=== PATIENT | female | born 1985 | race Caucasian/White ===

== ENCOUNTER → 2017-12-19 21:33 | Outpatient (CLI) | payer OTHER, SELFPAY | LOC: SL 21:33 | PROVIDERS: Family Provider Internal Medicine; PCP Internal Medicine; Visit Provider Internal Medicine | DX: G47.33 Obstructive sleep apnea (adult) (pediatric) (principal) | CPT/HCPCS: 95811 ==

== ENCOUNTER 2018-05-06 09:30 | Outpatient (CLI) | payer OTHER, SELFPAY ==
[2018-05-06 09:32] VITALS: BP 148/89; PULSE 98; RESP 16; TEMP 37.1; O2SAT 99; BMI 40.0
--- NOTE | 2018-05-06 09:34 | ED.RN ---
PT STATES SHE FEELS BABY MOVING AND TIGHTNESS
--- NOTE | 2018-05-06 09:53 | ED.VISSUMM ---
- ER Visit Summary Date of Service: 05/06/18 Chief Complaint: Abdominal pain status post fall History of Present Illness: The patient is a 32 F who is approximately 8 months gestation who had a mechanical fall. She was going to work. She states she slipped on the icy parking lot. She fell forward onto her hands and knees. She states her abdomen hit the pavement. She presents because of pain that she localizes to the fundal region and reports decreased/abnormal movement. She denies any vaginal bleeding or fluid leakage. She is uncertain of blood type. She reports no complications with prior 11 years ago. She denied head trauma. Denies neck pain. Denies paresthesia, anesthesia or motor weakness. She denies respiratory or cardiac symptoms. Physical Examination: Vital signs noted and remarkable for an elevated blood pressure of 148/89. HEENT exam is unremarkable with no evidence of trauma. Heart is regular. There is no murmur, gallop or rub. Lungs are clear to auscultation. Abdomen is remarkable tenderness superior fourth of the uterus. Question of firmness. There is no pain the patient the pelvis. GCS is 15 with a nonfocal neurologic exam. Test Results: Prior records reviewed there is no documentation of blood type. This will need to be checked by her OB. Spoke with her OB and will discharge to L&D for monitoring Emergency Department Course and Treatment: Examination, consultation with athletic field custodian, Dr. Merino and discharge to L&D for monitoring Treatment Plan: To L&D for monitoring Disposition: Discharge to L&D Impression: Abdominal pain/uterine pain third trimester secondary to trauma This note was generated with [employer] dictation software. It may contain incorrect words, spelling, and punctuation that were not noted in review of the chart prior to signing ED Disposition - Plan for ED Patient: Disposition: Home or Assisted Living Chief Complaint: Fall Instructions: Nonstress and Contraction Stress Tests Referrals: Shital Cruz MD [Primary Care Provider] -
--- NOTE | 2018-05-06 09:57 | ED.DCSUM_ITS ---
- ER Visit Summary Date of Service: 05/06/18 Chief Complaint: Abdominal pain status post fall History of Present Illness: The patient is a 32 F who is approximately 8 months gestation who had a mechanical fall. She was going to work. She states she slipped on the icy parking lot. She fell forward onto her hands and knees. She states her abdomen hit the pavement. She presents because of pain that she localizes to the fundal region and reports decreased/abnormal movement. She denies any vaginal bleeding or fluid leakage. She is uncertain of blood type. She reports no complications with prior 11 years ago. She denied head trauma. Denies neck pain. Denies paresthesia, anesthesia or motor weakness. She denies respiratory or cardiac symptoms. Physical Examination: Vital signs noted and remarkable for an elevated blood pressure of 148/89. HEENT exam is unremarkable with no evidence of trauma. Heart is regular. There is no murmur, gallop or rub. Lungs are clear to auscultation. Abdomen is remarkable tenderness superior fourth of the uterus. Question of firmness. There is no pain the patient the pelvis. GCS is 15 with a nonfocal neurologic exam. Test Results: Prior records reviewed there is no documentation of blood type. This will need to be checked by her OB. Spoke with her OB and will discharge to L&D for monitoring Emergency Department Course and Treatment: Examination, consultation with tire center manager, Dr. Merino and discharge to L&D for monitoring Treatment Plan: To L&D for monitoring Disposition: Discharge to L&D Impression: Abdominal pain/uterine pain third trimester secondary to trauma This note was generated with [employer] dictation software. It may contain incorrect words, spelling, and punctuation that were not noted in review of the chart prior to signing ED Disposition - Plan for ED Patient: Disposition: Home or Assisted Living Chief Complaint: Fall Instructions: Nonstress and Contraction Stress Tests Referrals: Shital Cruz MD [Primary Care Provider] -
[2018-05-06 10:09] VITALS: BP 114/87; PULSE 97; RESP 14; O2SAT 99
[2018-05-06 11:25] LABS: Hematocrit 40.5 % (37-47); Hemoglobin 13.8 g/dl (12.0-15.0); Mean Corp Hgb Conc 34.1 g/gl (32-36); Mean Platelet Vol. 11.3 fl (6.2-12.0); Platelet Count 225 K/mm3 (150-450); RBC Distribution Width SD 43.3 fl (35.1-43.9); Red Blood Count 4.31 M/mm3 (4.2-5.4); White Blood Count 8.2 K/mm3 (4.4-11.0)
[2018-05-06 11:27] LABS: Scan Indicated on CBC? Y/N NO
[2018-05-06 11:31] VITALS: BMI 39.9
[2018-05-06 11:55] LABS: Partial Thromboplast Time 27.1 Seconds (24.1-36.2)
[2018-05-06 11:58] LABS: Fibrinogen 663 mg/dl (203-444)
--- NOTE | 2018-05-06 12:00 | OB.TRI.NOTE ---
History of Present Illness Date of Service: 05/06/18 Was patient seen by the physician?: Yes Reason For Visit: FALL, 8 MONTHS PREG Date of Service: 05/06/18 Final JASMIN Source: US <20 weeks Gestational age: 36.5 History of Present Illness: 32yo @ 36.5 wks s/p fall this morning. pt slipped and fell- most of impact on hand and knees but thinks she hit upper abdomen. denies Vaginal bleeding or regular contractions. has some discomfort on upper abdomen. Pt reports good movement. Pt offers no other concerns today. Allergies No Known Allergies Allergy (Verified 05/06/18 09:31) Laboratory Studies: Laboratory Tests 05/06/18 05/06/18 Range/Units 11:05 11:05 WBC 8.2 (4.4-11.0) K/mm3 RBC 4.31 (4.2-5.4) M/mm3 Hgb 13.8 (12.0-15.0) g/dl Hct 40.5 (37-47) % MCV 94.0 (81-99) fL MCH 32.0 (27.0-32.0) pg MCHC 34.1 (32-36) g/gl RDW 13.0 (11.6-14.6) % RDW Differential 43.3 (35.1-43.9) fl Plt Count 225 (150-450) K/mm3 MPV 11.3 (6.2-12.0) fl PT 13.0 (11.7-14.9) SECONDS INR 1.0 APTT 27.1 (24.1-36.2) Seconds Fibrinogen 663 H (203-444) mg/dl Review of Systems Cardiovascular: Denies: Chest Pain Respiratory: Denies: Shortness of Breath Gastrointestinal: Reports: - - some mild upper abdominal discomfort, no painful contractions. Denies: Abdominal Pain, Nausea Physical Exam Vitals: Vital Signs Temp Pulse Resp BP Pulse Ox 98.7 F 97 14 114/87 H 99 05/06/18 09:32 05/06/18 10:09 05/06/18 10:09 05/06/18 10:09 05/06/18 10:09 General: Alert, Oriented x3 Abdomen: Soft, Non Tender, Gravid, - - No rebound or gurading on exam Neurological: Cranial nerves II-XII grossly intact NST - FHR Rate Baby A Baseline: 140 Variability:: Moderate Accelerations:: 15 x 15 Decelerations:: None NST Reactive:: Yes FHR Category:: Category I Uterine Activity:: irregular contractions Impression/Plan 32yo @ 36.5 wks, s/p fall here for prolonged monitoring 1) Labs reviewed- wnl 2) well being established- will keep on monitor x 4 hrs- if remains reactive and category 1 will dc home 3) f/u in office as scheduled.
--- NOTE | 2018-05-06 15:39 | ED.RN ---
PT FILLED OUT FROI AFTER BEING DISCHARGED FROM ED AND [facility].
--- OUTSIDE RECORDS SUMMARY | 2018-06-18 01:11 | XMS RPT_ITS ---
:1985 Author Organization OHIP Care Team Providers Name Role Phone BEBE CORDOVA (COLOR MAKER) Attending Unavailable BEBE CORDOVA (COLOR MAKER) Referring Unavailable NEYHART ALDRIDGE, CARA Referring Unavailable NEYHART ALDRIDGE, CARA Referring Unavailable JUSTIN ALEMAN Attending Unavailable NEYHART ALDRIDGE, CARA Attending Unavailable NEYHART ALDRIDGE, CARA Referring Unavailable BEBE CORDOVA (COLOR MAKER) Attending Unavailable JOEL CRUZ Attending Unavailable JUSTIN ALEMAN Referring Unavailable NEYHART ALDRIDGE, CARA Attending Unavailable NEYHART ALDRIDGE, CARA Referring Unavailable TRUMAN ARMAS Attending Unavailable NEYHART ALDRIDGE, CARA Referring Unavailable NEYHART ALDRIDGE, CARA Referring Unavailable NEYHART ALDRIDGE, CARA Attending Unavailable NEYHART ALDRIDGE, CARA Referring Unavailable MEREDITH HARDY (MALARIOLOGIST) Attending Unavailable KOFI ROMERO Attending Unavailable NEYHART ALDRIDGE, CARA Referring Unavailable NEYHART ALDRIDGE, CARA Attending Unavailable MARA ROUSE (CNM) Attending Unavailable NEYHART ALDRIDGE, CARA Attending Unavailable NEYHART ALDRIDGE, CARA Referring Unavailable MARA ROUSE (CNM) Attending Unavailable NEYHART ALDRIDGE, CARA Referring Unavailable KOFI ROMERO Attending Unavailable NEYHART ALDRIDGE, CARA Referring Unavailable NEYHART ALDRIDGE, CARA Attending Unavailable NEYHART ALDRIDGE, CARA Referring Unavailable NEYHART ALDRIDGE, CARA Attending Unavailable NEYHART ALDRIDGE, CARA Attending Unavailable MARA ROUSE (CNM) Attending Unavailable NEYHART ALDRIDGE, CARA Attending Unavailable KOFI ROMERO Attending Unavailable MARA ROUSE (CNM) Attending Unavailable NEYHART ALDRIDGE, CARA Attending Unavailable NEYHART ALDRIDGE, CARA Referring Unavailable Neyhart-Aldridge, Cara Attending Unavailable Neyhart-Aldridge, Cara Referring Unavailable Joel Cruz Primary Care Unavailable Neyhart-Aldridge, Cara Attending Unavailable Nancy Joel Primary Care Unavailable Neyhart-Aldridge, Cara Referring Unavailable Joel Cruz Attending Unavailable Dexampjana, Joel Primary Care Unavailable ABIGAIL HARDY Consulting Unavailable Meredith Hardy PHILOSOPHY LECTURER-C Consulting Unavailable Talampas, Joel Primary Care Unavailable Neydulcet-Aldridge, Cara Attending Unavailable Neyhart-Aldridge, Cara Referring Unavailable Neyhart-Aldridge, Cara Admitting Unavailable Neyhart-Aldridge, Cara Attending Unavailable Nancy, Joel Primary Care Unavailable PROBLEMS PROBLEMS DATE TYPE CONDITION / CODE ATTENDING STATUS SOURCE 03/05/2018 Active Encounter for NA Active [facility] supervision of [facility] [place] other normal Repository , second trimester / Z34.82(ICD-10) 03/05/2018 Active 27 weeks gestation NA Active [facility] of / [place] Z3A.27(ICD-10) Repository 11/18/2017 Active Encounter for NA Active [facility] [place] screening for Repository nuchal translucency / Z36.82(ICD-10) 10/18/2017 Active Encounter for NA Active [facility] supervision of [facility] other normal Repository , first trimester / Z34.81(ICD-10) 09/30/2017 Active Hemorrhage in NA Active [facility] early , [place] unspecified / Repository O20.9(ICD-10) 06/11/2017 Active Recurrent NA Active [facility] loss / [place] N96(ICD-10) Repository 06/07/2017 Active Unknown / TASHA, BEBE Active [facility] UNK(Unknown) (COLOR MAKER) [place] Repository PROCEDURES PROCEDURES No Procedure Records FoundRESULTS RESULTS DISCHARGE INSTRUCTION Observed: 05/27/2018 Status: F Source: [place] 8:36 AM [facility] REPOSITORY [facility] Medical Records Department [address] [place] [address] Instructions for Home/Discharge Instructions 05/27/18 0836 MR#: [id number] Acct: [id number] Name: MELVINA LUCIO Rep #: [id number] : 1985 32 From: Justin Aleman PCP: Nancy VIERA,Joel Status: ADM IN Discharge Diet: No Restrictions Discharge Activity: May Drive, May Shower May resume sexual activity in: 4-6 weeks Weight Bearing Status: Weight bearing as tolerated Additional Instructions: If you experience any of the following, contact your healthcare provider. * Bleeding that soaks a pad every hour for 2 hours * Fever 100.4 or higher * Unrelieved incision or abdominal pain * Swelling, redness, discharge or bleeding from your incision or episiotomy site * Your incision begins to separate * Problems urinating (including inability to urinate or burning while urinating). * Visual changes * Severe headache * Flu-like symptoms * Pain or redness in one of both of your breasts * Pain, warmth, tenderness or swelling in your legs, especially the calf area * Frequent nausea and vomiting * Symptoms of depression or anxiety If you experience any of the following, call 911 or go to the nearest Emergency Room. * Chest pain * Problems breathing * Seizure activity * Partial or complete paralysis of a body part, slurred speech, weakness or drooping of the face, or a sudden inability to walk or hold your balance Allergies/Adverse Reactions: Allergies No Known Allergies Allergy (Verified 05/24/18 19:36) Medications to take at Discharge Vits96/Iron Fum/Folic [ Tablet] 1 each PO DAILY 05/06/18 Acetaminophen [Tylenol] 500 - 1,000 mg PO Q6H PRN PRN 05/23/18 Calcium Carbonate [Tums] 500 mg PO BIDCM 05/23/18 Primary Care Physician: Joel Cruz MD [Primary Care Provider] - Test Results: Test results from this visit will be discussed in further detail at your follow-up appointment, if applicable. 05/27/18 0836 <Electronically signed by Justin Aleman > Date Justin Aleman CC: Joel Cruz MD OPERATIVE REPORT Observed: 05/25/2018 Status: F Source: SHERIN 10:58 AM [facility] REPOSITORY [facility] Medical Records Department [address] [place] [address] Operative Report 05/25/18 1056 MR#: [id number] Acct: [id number] Name: MELVINA LUCIO Rep #: [id number] : 1985 32 From: Cara Aldridge MD PCP: Joel Cruz MD Status: ADM IN Y Location: [id number] Vaginal Delivery Maternal Presentation: Medically Indicated Induction Method of Induction: Pitocin, Izaguirre Bulb Medical Reason for Induction: Preeclampsia, eclampsia Amniotic Membrane Rupture Type: Artificial Amniotic Fluid Description: Clear Final JASMIN: 05/29/18 Gestational age: 39 Weeks and 3 Days Date of Procedure: 05/25/18 Pre-Operative Diagnosis: Preeclampsia without severe features, term gestation Post-Operative Diagnosis: Same, live male Surgery/ Procedure Performed: Spontaneous Vaginal Delivery Type of Anesthesia: Epidural Description of Procedure: of live male born without complications- tight nucal x 1- delivered without reduction of nuchal. vigorous at delivery, delayed cord clamping performed. Presentation: Vertex Placental Delivery Description: Spontaneous Placenta Disposition: [facility] Cord Vessel Description: 3 Vessels Nuchal Cord Compression: With compression Cord Entanglement: Around neck x 1, tight Drain: Izaguirre to straight drain Estimated Blood Loss: 250 Infant A gender: Male (1 minute): 8 (5 minute): 9 Episiotomy Description: None Laceration: Perineal Extension/lac, 2nd degree Medications given after delivery: IV Pitocin Complications: None 05/25/18 1058 <Electronically signed by Cara Aldridge MD> Date Cara Wheeler MD CC: Cara Wheeler MD; Joel Cruz MD Signed HISTORY AND PHYSICAL Observed: 05/24/2018 Status: F Source: BLAIR EXAM 8:22 PM [facility] REPOSITORY [facility] Medical Records Department [address] [place] [id number] History and Physical 05/24/18 1847 MR#: [id number] Acct: [id number] Name: MELVINA LUCIO Rep #: [id number] : 1985 32 From: Cara Aldridge MD PCP: Joel Cruz MD Status: ADM IN Y Location: [id number] History Date of Admission: 05/24/18 Final JASMIN: 05/29/18 Final JASMIN Source: US <20 weeks Gestational age: 39 Weeks and 2 Days History of this : This is a 32 year-old, G 9V0236 @ 39.2 wks with preeclampsia without severe features- had elevated BP in office yesterday x 1 sent to L AND D for evaluation- normal labs and BP normal range- 24hr urine results elevated protein 418mg. pt was called and set up for IOL today for PreE. pt at this time is asymptomatic Allergies No Known Allergies Allergy (Verified 05/23/18 12:27) Home Medications: Home Medications Vits96/Iron Fum/Folic [ Tablet] 1 each PO DAILY 05/06/18 Acetaminophen [Tylenol Extra Strength] 500 - 1,000 mg PO Q6H PRN PRN 05/23/18 Calcium Carbonate [Tums] 500 mg PO BIDCM 05/23/18 proMETHazine tablet [Phenergan tablet] 25 mg PO Q6H PRN PRN 05/23/18 Smoking Status: Former smoker Alcohol: None Number of Fetus(es): 1 History Past Pregnancies: Past Pregnancies Delivery Name GA/Weeks Outcome Route WeiInfant GeLabor LenAnesthesiDelivery Provider FOB Date ght nder [facility] a Location Labs: GBS neg, HEPB neg, HIV neg, Syphilis neg, RUB imm, Expected Delivery Method: Spontaneous Vaginal Review of Systems Eyes: Denies: Blurred vision, Double vision HEENT: Denies: Head Aches Gastrointestinal: Denies: Abdominal Pain Physical Exam General: Alert, Oriented x3 Abdomen: Soft, Non Tender, Gravid Neurological: Cranial nerves II-XII grossly intact MINISTER ASSISTANT: Normal external genitalia Estimated gestational size: Appropriate for gestational size Presentation: Cephalic Cervix Dilation (cm): 3 Station: -3 Effacement (%): 70 Assessment/Plan This is a 32 year-old, G 4P1 @ 39.2 wks, pre Eclampsia w/o severe features 1) admit to L AND D 2) monitor fhr/toco 3) monitor VS 4) Labs done yesterday- will not repeat today 5) IZAGUIRRE/PIT for IOL- izaguirre bulb placed- 6) epidural if requested for pain mgmt 05/24/182021 <Electronically signed by Cara Aldridge MD> Date Cara Wheeler MD Cosigner Signature: Date (if applicable) CC: Cara Wheeler MD; Joel Cruz MD Signed CBC-COMPLETE BLOOD CNT Collected: 05/24/2018 Status: F Source: [place] NO DIFF 8:05 PM [facility] REPOSITORY TYPE CODE TESTS RESULT OUT OF RANGE REFERENCE UNITS LAB L100.1000 4.4-11.0 K/mm3 Normal WBC 9.4 LAB L100.1200 4.2-5.4 M/mm3 Normal RBC 4.47 LAB L100.1300 12.0-15.0 g/dl Normal HGB 14.1 LAB L100.1400 37-47 % Normal HCT 41.2 LAB L100.1500 81-99 fL Normal MCV 92.2 LAB L100.1600 27.0-32.0 pg Normal MCH 31.5 LAB L100.1700 32-36 g/gl Normal MCHC 34.2 LAB L100.1810 11.6-14.6 % Normal RDW CV 12.9 LAB L100.1820 35.1-43.9 fl Normal RDW SD 43.6 LAB L100.1900 150-450 K/mm3 Normal PLT 238 LAB L100.2000 6.2-12.0 fl Normal MPV 11.3 Performed By: #### L100.0500 #### [facility] [address] [place], [place], [id number] TYPE AND SCREEN Collected: 05/24/2018 Status: F Source: [place] 8:05 PM [facility] REPOSITORY Order Comment: Reason for Type AND Screen/Red Cells: ROUTINE TYPE CODE TESTS RESULT OUT OF RANGE REFERENCE UNITS LAB B10.0800 B Normal BLOOD TYPE GEL POSITIVE LAB B100.4000 Normal Antibody NEGATIVE Screen Performed By: #### B101.7450 #### [facility] [address] [facility] [place], [address] PROTEIN, URINE 24HR Collected: 05/24/2018 Status: F Source: [place] 12:50 PM [facility] REPOSITORY Order Comment: CALL WITH RESULTS [phone] TYPE CODE TESTS RESULT OUT OF RANGE REFERENCE UNITS LAB L501.1850 24.0 HOURS Normal UR COLLECT 24.0 TIME LAB L501.1875 mL Normal UR TOTAL 2950 VOLUME LAB L501.1900 <11.9 mg/dL High URINE PROTEIN 14.2 LAB L501.1925 <150 MG/24HR mg/24HR High 24hr UR 418.9 PROTEIN Performed By: #### L500.9000, L502.000 #### [facility] [address] [place], [address] 24 HR URINE CREATININE Collected: 05/24/2018 Status: F Source: [place] 12:50 PM [facility] REPOSITORY Order Comment: CALL WITH RESULTS [phone] TYPE CODE TESTS RESULT OUT OF RANGE REFERENCE UNITS LAB L502.0100 24.0 HOURS Normal UR COLLECT 24.0 TIME LAB L502.0200 L Normal UR TOTAL 3.00 VOLUME LAB L502.0300 NO RANGE EST. mg/dL Normal URINE CREAT 71.30 LAB L502.0400 0.70-1.90 g/24 HR High UR.CREAT/24hr 2.10 Performed By: #### L500.9000, L502.000 #### [facility] [address] [facility] [place], [address] PROTEIN+CREATININE Collected: Status: F Source: [place]ER[place] RATIO,URINE 05/23/2018 12:50 PM [facility] REPOSITORY TYPE CODE TESTS RESULT OUT OF RANGE REFERENCE UNITS LAB L501.1200 NO RANGE EST. mg/dL Normal UR CREAT 41.30 LAB L501.1930 <11.9 mg/dL High 13.5 PROTEIN,UR.R AN. LAB L501.1940 0-200 mg/g CRE High PROT:CRE 327 RATIO Performed By: #### L501.0900 #### [facility] [address] [facility] [place], [place], [address] CBC-COMPLETE BLOOD CNT Collected: 05/23/2018 Status: F Source: [place] NO DIFF 12:15 PM [facility] REPOSITORY TYPE CODE TESTS RESULT OUT OF RANGE REFERENCE UNITS LAB L100.1000 4.4-11.0 K/mm3 Normal WBC 8.4 LAB L100.1200 4.2-5.4 M/mm3 Normal RBC 4.31 LAB L100.1300 12.0-15.0 g/dl Normal HGB 13.6 LAB L100.1400 37-47 % Normal HCT 40.4 LAB L100.1500 81-99 fL Normal MCV 93.7 LAB L100.1600 27.0-32.0 pg Normal MCH 31.6 LAB L100.1700 32-36 g/gl Normal MCHC 33.7 LAB L100.1810 11.6-14.6 % Normal RDW CV 12.8 LAB L100.1820 35.1-43.9 fl Normal RDW SD 42.8 LAB L100.1900 150-450 K/mm3 Normal PLT 211 LAB L100.2000 6.2-12.0 fl Normal MPV 11.8 Performed By: #### L100.0500 #### [facility] [address] [facility] [place], [place], [address] PROTHROMBIN TIME W/INR Collected: 05/23/2018 Status: F Source: [place] 12:15 PM [facility] REPOSITORY TYPE CODE TESTS RESULT OUT OF RANGE REFERENCE UNITS LAB L300.4150 11.7-14.9 SECONDS Normal PROTIME 13.0 LAB L300.4200 Normal INR 1.0 Performed By: #### L300.3900, L300.4310, L501.1105, L501.1400, L501.4100, L501.4405 #### [facility] [address] [facility] [place], [address] PARTIAL THROMBOPLAST Collected: 05/23/2018 Status: F Source: [place] TIME 12:15 PM [facility] REPOSITORY TYPE CODE TESTS RESULT OUT OF RANGE REFERENCE UNITS LAB L300.4310 24.1-36.2 Seconds Normal PTT 28.6 Performed By: #### L300.3900, L300.4310, L501.1105, L501.1400, L501.4100, L501.4405 #### [facility] [address] [place], [place], [id number] SERUM CREATININE AND Collected: 05/23/2018 Status: F Source: [place] GFR 12:15 PM [facility] REPOSITORY TYPE CODE TESTS RESULT OUT OF RANGE REFERENCE UNITS LAB L501.1100 0.55-1.02 mg/dL Normal 0.57 CREAT,SERUM Result Comment: The validity of the calculated GFR AND GFRAA in patients over 70 years has not been determined. Clinical correlation is essential. LAB L501.1110 >60 mL/min Normal EST GFR 130 Result Comment: Non- GFR Calc LAB L501.1115 >60 mL/min Normal EST GFR - AA 157 Result Comment: GFR Calc LAB L501.1255 ml/min Normal Estimated CRCL 141.61 Performed By: #### L300.3900, L300.4310, L501.1105, L501.1400, L501.4100, L501.4405 #### [facility] [address] [place], [place], [id number] URIC ACID Collected: 05/23/2018 Status: F Source: [place] 12:15 PM [facility] REPOSITORY TYPE CODE TESTS RESULT OUT OF RANGE REFERENCE UNITS LAB L501.1400 2.6-6.0 mg/dL Normal URIC 3.8 Result Comment: The drugs N-Acetylcysteine and Metamizole may falsely depress this assay. Performed By: #### L300.3900, L300.4310, L501.1105, L501.1400, L501.4100, L501.4405 #### [facility] [address] [place], [place], [address] AST(SGOT) Collected: 05/23/2018 Status: F Source: [place] 12:15 PM [facility] REPOSITORY TYPE CODE TESTS RESULT OUT OF RANGE REFERENCE UNITS LAB L501.4100 15-37 U/L Normal AST 26 Performed By: #### L300.3900, L300.4310, L501.1105, L501.1400, L501.4100, L501.4405 #### [facility] [address] [facility] [place], [address] ALANINE AMINOTRANSFERAS Collected: 05/23/2018 Status: F Source: [place]ERIN (SGPT) 12:15 PM [facility] REPOSITORY TYPE CODE TESTS RESULT OUT OF RANGE REFERENCE UNITS LAB L501.4405 13-56 U/L Normal ALT 33 Performed By: #### L300.3900, L300.4310, L501.1105, L501.1400, L501.4100, L501.4405 #### [facility] [address] [facility] [place], [place], [address] PROGRESS Observed: 05/15/2018 Status: COMPLETED Source: [place] 4:58 PM [facility] REPOSITORY HNO ID: [id number] Author: Kofi Romero Service: (none) Author Type: Physician Type: Progress Notes Filed: 05/15/2018 4:59 PM Note Text: A almodovar intrauterine The size is AGA Estimated Date of Delivery: 05/29/18 EGA = 38w0d The anatomy appears normal in the areas visualized. The amniotic fluid volume is normal. There is no evidence of effusions and/ or hydrops. The placenta is fundal. RECOMMENDATIONS: - Self-assessment of kick counts - Follow up ultrasound as clinically indicated GROUP B STREP PCR Collected: 05/07/2018 Status: F Source: [place] 11:41 PM [facility] REPOSITORY TYPE CODE TESTS RESULT OUT OF REFERENCE UNITS RANGE LAB GBPCRT Negative for GROUP Group B B STREP PCR Streptococcus by PCR. Performed By: #### GBPCR #### [facility] [address] [place], [place] [address] CBC-COMPLETE BLOOD CNT Collected: 05/06/2018 Status: F Source: [place] NO DIFF 11:05 AM [facility] REPOSITORY TYPE CODE TESTS RESULT OUT OF RANGE REFERENCE UNITS LAB L100.1000 4.4-11.0 K/mm3 Normal WBC 8.2 LAB L100.1200 4.2-5.4 M/mm3 Normal RBC 4.31 LAB L100.1300 12.0-15.0 g/dl Normal HGB 13.8 LAB L100.1400 37-47 % Normal HCT 40.5 LAB L100.1500 81-99 fL Normal MCV 94.0 LAB L100.1600 27.0-32.0 pg Normal MCH 32.0 LAB L100.1700 32-36 g/gl Normal MCHC 34.1 LAB L100.1810 11.6-14.6 % Normal RDW CV 13.0 LAB L100.1820 35.1-43.9 fl Normal RDW SD 43.3 LAB L100.1900 150-450 K/mm3 Normal PLT 225 LAB L100.2000 6.2-12.0 fl Normal MPV 11.3 Performed By: #### L100.0500, L300.3900, L300.4310, L300.4700 #### [facility] [address] [place], [place], [id number] PROTHROMBIN TIME W/INR Collected: 05/06/2018 Status: F Source: [place] 11:05 AM [facility] REPOSITORY TYPE CODE TESTS RESULT OUT OF RANGE REFERENCE UNITS LAB L300.4150 11.7-14.9 SECONDS Normal PROTIME 13.0 LAB L300.4200 Normal INR 1.0 Performed By: #### L100.0500, L300.3900, L300.4310, L300.4700 #### [facility] [address] [place], [place], [id number] PARTIAL THROMBOPLAST Collected: 05/06/2018 Status: F Source: [facility] 11:05 AM [facility] REPOSITORY TYPE CODE TESTS RESULT OUT OF RANGE REFERENCE UNITS LAB L300.4310 24.1-36.2 Seconds Normal PTT 27.1 Performed By: #### L100.0500, L300.3900, L300.4310, L300.4700 #### [facility] [address] [place], [place], [address] FIBRINOGEN Collected: 05/06/2018 Status: F Source: [place] 11:05 AM [facility] REPOSITORY TYPE CODE TESTS RESULT OUT OF RANGE REFERENCE UNITS LAB L300.4700 203-444 mg/dl High FIB 663 Performed By: #### L100.0500, L300.3900, L300.4310, L300.4700 #### [facility] [address] [place], [address] EMERGENCY DEPARTMENT Observed: 05/06/2018 Status: F Source: [place] SUMMARY 9:58 AM [facility] REPOSITORY [facility] Medical Records Department [address] [place] [address] Emergency Department Summary 05/06/18 0953 MR#: [id number] Acct: [id number] Name: MELVINA LUCIO Rep #: [id number] : 1985 32 From: Mihai Mckeon MD PCP: Joel Cruz MD Status: PRE ER - ER Visit Summary Date of Service: 05/06/18 Chief Complaint: Abdominal pain status post fall History of Present Illness: The patient is a 32 F who is approximately 8 months gestation who had a mechanical fall. She was going to work. She states she slipped on the icy parking lot. She fell forward onto her hands and knees. She states her abdomen hit the pavement. She presents because of pain that she localizes to the fundal region and reports decreased/abnormal movement. She denies any vaginal bleeding or fluid leakage. She is uncertain of blood type. She reports no complications with prior 11 years ago. She denied head trauma. Denies neck pain. Denies paresthesia, anesthesia or motor weakness. She denies respiratory or cardiac symptoms. Physical Examination: Vital signs noted and remarkable for an elevated blood pressure of 148/89. HEENT exam is unremarkable with no evidence of trauma. Heart is regular. There is no murmur, gallop or rub. Lungs are clear to auscultation. Abdomen is remarkable tenderness superior fourth of the uterus. Question of firmness. There is no pain the patient the pelvis. GCS is 15 with a nonfocal neurologic exam. Test Results: Prior records reviewed there is no documentation of blood type. This will need to be checked by her OB. Spoke with her OB and will discharge to L AND D for monitoring Emergency Department Course and Treatment: Examination, consultation with automotive engineering technician, Dr. Aldridge and discharge to L AND D for monitoring Treatment Plan: To L AND D for monitoring Disposition: Discharge to L AND D Impression: Abdominal pain/uterine pain third trimester secondary to trauma This note was generated with [employer] dictation software. It may contain incorrect words, spelling, and punctuation that were not noted in review of the chart prior to signing ED Disposition - Plan for ED Patient: Disposition: Home or Assisted Living Chief Complaint: Fall Instructions: Nonstress and Contraction Stress Tests Referrals: Joel Cruz MD [Primary Care Provider] - What to do if you have Problems For any increased pain, shortness of breath, bleeding, nausea or vomiting, chest pain, or any unexpected problems, contact your Primary Care Provider. Call [facility] ([phone]) or report to the closest Emergency Room. Call 911 if necessary. 05/06/18 0958 <Electronically signed by Mihai Mckeon MD> Date Mihai Mckeon MD Cosigner Signature (If Indicated): Date CC: Joel Cruz MD PROGRESS Observed: 04/16/2018 Status: COMPLETED Source: [place] 1:26 PM [facility] REPOSITORY [facility] ID: [id number] Author: Ade Cassidy Ma Service: (none) Author Type: (none) Type: Progress Notes Filed: 04/16/2018 1:48 PM Note Text: Patient identified by name and date of . Melvina Lucio presents today for a vaccination of Tdap. Patient denies an allergy to latex: yes Patient denies a severe (life-threatening) allergy to a previous dose of Tdap, DTP, DTaP, DT or Td vaccine. Yes Patient denies history of epilepsy or neurological problems: Yes Patient is afebrile and denies being moderately or severely ill: Yes Patient denies history of Guillain-[place] Syndrome (a severe paralytic illness): Yes Tdap Adacel injection was given without incident. See immunizations for details of immunizations administered today. VIS sheet provided: Yes Provider Angelique was present in office at time of injection. Ade Cassidy Ma PROGRESS Observed: 03/20/2018 Status: COMPLETED Source: [place] 10:14 AM [facility] REPOSITORY HNO ID: [id number] Author: Kofi Romero Service: (none) Author Type: Physician Type: Progress Notes Filed: 03/20/2018 10:15 AM Note Text: A almodovar intrauterine The size is AGA Estimated Date of Delivery: 05/29/18 EGA = 30w0d The anatomy appears normal in the areas visualized. The amniotic fluid volume is normal. There is no evidence of effusions and/ or hydrops. The placenta is fundal. RECOMMENDATIONS: - Self-assessment of kick counts - Follow up ultrasound as clinically indicated CBC AND DIFFERENTIAL Collected: 03/05/2018 Status: F Source: [place] 3:06 PM [facility] REPOSITORY TYPE CODE TESTS RESULT OUT OF REFERENCE UNITS RANGE LAB WBC 3.70-11.00 k/uL WBC 9.25 LAB RBC 3.90-5.20 m/uL Low RBC 3.79 LAB HGB 11.5-15.5 g/dL Hemoglobin 11.8 LAB HCT 36.0-46.0 % Low Hematocrit 35.9 LAB MCV 80.0-100.0 fL MCV 94.7 LAB MCH 26.0-34.0 pG MCH 31.1 LAB MCHC 30.5-36.0 g/dL MCHC 32.9 LAB RDWCV 11.5-15.0 % RDW-CV 13.0 LAB PLTCT 150-400 k/uL Platelet Count 251 LAB MPV 9.0-12.7 fL MPV 11.5 LAB ANEUT % Neut% 76.1 LAB AANEUT 1.45-7.50 k/uL Abs Neut 7.03 LAB ALYMP % Lymph% 15.0 LAB AALYMP 1.00-4.00 k/uL Abs Lymph 1.39 LAB AMONO % [place]% 7.0 LAB AAMONO <0.87 k/uL Abs [place] 0.65 LAB AEOS % Eosin% 1.7 LAB AAEOS <0.46 k/uL Abs Eosin 0.16 LAB ABASO % Baso% 0.2 LAB AABASO <0.11 k/uL Abs Baso <0.03 LAB AUNRBC 0 /100 WBC NRBCs 0.0 LAB ABNRBC <0.01 k/uL Absolute nRBC <0.01 LAB DTYP DTYPE Auto Diff Performed By: #### CBCDIF #### [facility] [address], [place] [address] 50G, 1HR GEST. Collected: 03/05/2018 Status: F Source: [place] GSCN 3:06 PM [facility] REPOSITORY TYPE CODE TESTS RESULT OUT OF REFERENCE UNITS RANGE LAB GLUP 74-134 mg/dL Glucose 117 Screen, Preg Result Comment: [place] [employer] of [employer]stetric[employer] and Gynecologists (Guerrero/Adriana) guidelines state a gestational diabetes mellitus positive screen is made, in women not previously diagnosed with overt diabetes, when the 1 hr plasma glucose level is equal to or above 140 mg/dL. The [facility] recommends a 135 mg/dL cutoff. Performed By: #### GLTGST #### [facility] [address], [place] [address] PROGRESS Observed: 03/05/2018 Status: COMPLETED Source: [place] 2:01 PM [facility] REPOSITORY HNO ID: [id number] Author: Ade Cassidy Ma Service: (none) Author Type: (none) Type: Progress Notes Filed: 03/05/2018 2:50 PM Note Text: 32 year old female here for INACTIVATED INFLUENZA VACCINE. 3348-6440 Season Patient is identified by name and date of : Yes [] CONTRAINDICATIONS color enhanced section Age less than 6 months? No Allergy to eggs, chicken, chicken feathers, or chicken dander? No Allergy to thimerosal (a preservative) or formaldehyde, gelatin? No History of severe reaction to any vaccine component or a previous dose of influenza vaccination? No History of Guillain-[place] Syndrome within 6 weeks after a previous influenza vaccine? No Patient is not moderately or severely ill? No Current temperature greater or equal to 100.4F? No History of Bone Marrow Transplant prior 6 months or solid organ transplant in the past 3 months ? No History of fainting after a prior injection or medical procedure? No- ? If patient has fainted in the past, the CDC recommends sitting or lying down for 15 minutes after the vaccination. [] VERIFICATION color enhanced section Was the answer Yes for any of the above contraindications? No contraindications present. Acceptable to proceed with vaccine. Patient/guardian agrees the above answers are true to the best of their knowledge? Yes Flu vaccine information sheet given? Yes See immunization activity in [facility] for details of immunizations adminstered today. Patient age: [age] year old For The 0376-9177 Flu Season 6-35 months old: Fluzone 0.25 ml - IM (Preservative Free) 3 years of age: Fluzone 0.5 ml - IM (Preservative Free) 3 years and older: Fluzone 0.5 ml- IM-(with Preservatives) 65+ years old: 2-49 years old Fluzone High-Dose 0.5 ml - IM (Preservative Free) FLUMIST- intranasal REMEMBER: If patient is less than 9 years of age and this is the first vaccine of Influenza to be received in any flu season, they should receive a second dose in one months time. CNCO Observed: 03/05/2018 Status: COMPLETED Source: [place] 12:00 AM [facility] REPOSITORY Letter Text [facility] [address], [place] [address] 03/05/2018 To Whom It May Concern: This is to confirm that Melvina Lucio had an appointment and was seen at the [facility] in the Department of HOME CARE [facility] by Cara Aldridge MD on 03/05/2018 and was accompanied by Sandrita Lucio. Sincerely, Cara Aldridge MD PROGRESS Observed: 01/13/2018 Status: COMPLETED Source: [place] 9:37 AM [facility] REPOSITORY HNO ID: [id number] Author: Kofi Romero Service: (none) Author Type: Physician Type: Progress Notes Filed: 01/13/2018 9:38 AM Note Text: A almodovar? fetus in utero with symmetric measurements Adequate growth (AGA). Estimated Date of Delivery: 05/29/18 EGA = 20w4d The anatomy appears normal. There are no evident malformations and /or effusions. No genetic markers are noted. The amniotic fluid volume is within normal limits. The sensitivity of ultrasound in the detection of malformations overall is approximately 35%. RECOMMENDATIONS: - Follow up ultrasound as clinically indicated PROGRESS Observed: 12/30/2017 Status: COMPLETED Source: [place] 10:03 AM [facility] REPOSITORY HNO ID: [id number] Author: Meredith Hardy (Cns) Service: (none) Author Type: Nurse Specialist Type: Progress Notes Filed: 12/30/2017 10:13 AM Note Text: OUTPATIENT VISIT DATE December 30, 2017 OUTPATIENT VISIT TYPE ESTABLISHED PRIMARY CARE PHYSICIAN: Joel Cruz MD CHIEF COMPLAINT: Patient presents with: Results - Sleep Study History of Present Illness: Melvina Lucio is a 32 year old female who was last seen 11/2017 by Joel Cruz MD. She has been seen in the past for ACTIVE PROBLEM LIST Multinodular Goiter Genital Warts Threatened History of Miscarriage Tobacco Use in Patient Requested Diagnostic Testing Spotting in , Antepartum Condition Or Complication Thyroid Goiter Quit Smoking Obesity in Since the last visit, she states that she has a history of sleep apnea. She is currently using an older CPAP. She is approximately 4 months . She had sleep study completed at [facility] on December 19, 2017, report per Dr. Sesay sleep apnea and recommended CPAP. She's been continuing to use her CPAP machine. Has not seen a sleep specialist. No recent hospital or ED visits. No new medical problems or medications. Able to obtain medications. No problems with taking medications or note side effects. PAST MEDICAL HISTORY Diagnosis Date - Abnormal Pap smear of cervix - goiter - Miscarriage 2016 - Miscarriage 2016 - Sleep apnea PAST SURGICAL HISTORY Procedure Laterality Date - DANDC (MISSED AB 1ST TRIMESTER) - IUD INSERTION (MINISTER ASSISTANT DEPT)_*FL 04/11/07 Mirena, removed - PAST SURGICAL HISTORY OF IANDD OF CYST ON BACK FAMILY HISTORY Problem Relation Age of Onset - Hypertension Mother - COPD Father - Stroke Maternal Grandmother - Aneurysm Maternal Grandmother brain - Hypertension Maternal Grandmother - Hypertension Maternal Grandfather - Diabetes Maternal Grandfather - Asthma Brother Social History Substance Use Topics - Smoking status: Former Smoker Packs/day: 0.50 Years: 10.00 Types: Cigarettes Quit date: 09/26/2017 - Smokeless tobacco: Never Used - Alcohol use No ALLERGIES: ALLERGIES No Known Allergies MEDICATIONS promethazine (PHENERGAN) 12.5 mg tablet Take 1 tablet by mouth every 6 hours as needed. PNV no.95/ferrous fum/folic ac ( ORAL) Take by mouth. REVIEW OF SYSTEMS: GENERAL: Negative for: Weight loss or gain, Fever or Chills, Weakness and Sleep difficulties. Physical Examination: BP 134/74 Pulse 96 Resp 16 Wt 251 lb (113.9kg) LMP 08/22/2017 BP w/Orthostatic Vitals Date and Time Orthostatic BP Orthostatic Pulse BP Pulse BP Position BP Site BP Cuff Size 12/30/17938 -- -- 134/74 96 Sitting Right Arm Large Adult Peak Flow Date and Time PF Resp 12/30/1739 -- 16 General appearance: Well appearing, alert, in no acute distress, well-hydrated, well nourished. Skin: Skin color, texture, turgor normal, no suspicious rashes or lesions Neuro: Gait normal. Sensation grossly intact. Reviewed chart, outside records, tests I personally interviewed, confirmed and edited the above information if obtained by others. TESTING: No results found for: GLUC, K, NA, CHLOR, CO2, CREAT, BUN, ANION, CA No results found for: GLUC, K, NA, CHLOR, CO2, CREAT, BUN, ANION, CA, TPROT, ALB, TBILI, ALKPHOS, AST, ALT Hemoglobin (g/dL) Date Value 10/18/2017 13.7 10/18/2017 13.7 Hematocrit (%) Date Value 10/18/2017 41.5 10/18/2017 39.9 WBC (k/uL) Date Value 10/18/2017 9.82 Cholesterol, Total (mg/dL) Date Value 09/16/2014 200 HDL Cholesterol (mg/dL) Date Value 09/16/2014 54 LDL Cholesterol (mg/dL) Date Value 09/16/2014 129 Triglyceride (mg/dL) Date Value 09/16/2014 83 Hemoglobin A1C Date Value Ref Range Status 06/11/2017 5.4 4.3 - 5.6 % Final 02/06/2016 5.6 4.3 - 5.6 % Final Ejection Fraction: No results found IMPRESSION: Ms. Lucio is a 32 year old woman presents for follow up of ABHINAV, recent sleep study results. After my examination and review of data, I make the following recommendations. PLAN AND RECOMMENDATIONS: 1. ABHINAV (obstructive sleep apnea) - ICD9: 327.23, ICD10: G47.33 (primary diagnosis) 2. 16 weeks gestation of - ICD9: V22.2, ICD10: Z3A.16 Discussed at visit today, will defer processing script for CPAP until seen by sleep specialist for their input. CPAP interpretation showed CPAP at a setting of 14 cm H2O eliminated apnea, laminated hypo-apneas and maintain oxygen saturations at 95% or higher. Recommendation is CPAP at a setting of 14 cm H2O using a dreamwear FFMof medium size, EPR of 3, heated humidity, and a ramp of 20 min. Copy of report provided to Ms. Lucio. Literature review shows 2 potential side effects of sleep apnea including increased risk of developing preeclampsia and gestational diabetes, no clear adverse effects on the fetus. No specific guidelines for ABHINAV treatment, no date on which to the or maternal parameters for treatment and no evidence of treatment and short-term impacts outcome. Advised follow-up with pre-gestational ABHINAV should have an evaluation by sleep provider for CPAP management during . Intrapartum care. In early consultation with anesthesia services for placement of regional anesthesia and continuous pulse oximetry. Patient's receiving opiates to be observed closely for respiratory suppression. The setting and analgesics strategies to minimize the need for systemic opioids methotrexate suppressed MALARIOLOGIST and respiratory function should be used.-(Up to date) Will refer to sleep medicine for further recommendations and assistance with managing ABHINAV during as needed - CONSULT TO SLEEP MEDICINE - ADULT Advised to go to ER if develops chest pain, shortness of breath, or severe worsening of symptoms. Discussed risks, benefits, alternatives, and potential side effects of medications. Ms. Lucio expressed understanding and agreed with the plan. Meredith Hardy APRN.MALARIOLOGIST CNOV Observed: 12/30/2017 Status: COMPLETED Source: [place] 9:40 AM [facility] REPOSITORY Office Visit (INTMWS) MELVINA LUCIO ([id number]) 1985 F Date Time Provider Department 12/30/17 9:40 AM MEREDITH HARDY ([facility] INTMWS During your visit today, we recorded the following information about you: Pulse Respiration Blood pressure Weight 96/minute 16/minute 134/74 113.9 kg Meredith Hardy APRN.CNS 12/30/2017 10:13 AM Addendum OUTPATIENT VISIT DATE December 30, 2017 OUTPATIENT VISIT TYPE ESTABLISHED PRIMARY CARE PHYSICIAN: Joel Cruz MD CHIEF COMPLAINT: Patient presents with: Results - Sleep Study History of Present Illness: Melvina Lucio is a 32 year old female who was last seen 11/2017 by Joel Cruz MD. She has been seen in the past for ACTIVE PROBLEM LIST Multinodular Goiter Genital Warts Threatened History of Miscarriage Tobacco Use in Patient Requested Diagnostic Testing Spotting in , Antepartum Condition Or Complication Thyroid Goiter Quit Smoking Obesity in Since the last visit, she states that she has a history of sleep apnea. She is currently using an older CPAP. She is approximately 4 months . She had sleep study completed at [facility] on December 19, 2017, report per Dr. Sesay sleep apnea and recommended CPAP. She's been continuing to use her CPAP machine. Has not seen a sleep specialist. No recent hospital or ED visits. No new medical problems or medications. Able to obtain medications. No problems with taking medications or note side effects. PAST MEDICAL HISTORY Diagnosis Date - Abnormal Pap smear of cervix - goiter - Miscarriage 2016 - Miscarriage 2016 - Sleep apnea PAST SURGICAL HISTORY Procedure Laterality Date - DANDC (MISSED AB 1ST TRIMESTER) - IUD INSERTION (MINISTER ASSISTANT DEPT)_*FL 04/11/07 Braulio removed - PAST SURGICAL HISTORY OF IANDD OF CYST ON BACK FAMILY HISTORY Problem Relation Age of Onset - Hypertension Mother - COPD Father - Stroke Maternal Grandmother - Aneurysm Maternal Grandmother brain - Hypertension Maternal Grandmother - Hypertension Maternal Grandfather - Diabetes Maternal Grandfather - Asthma Brother Social History Substance Use Topics - Smoking status: Former Smoker Packs/day: 0.50 Years: 10.00 Types: Cigarettes Quit date: 09/26/2017 - Smokeless tobacco: Never Used - Alcohol use No ALLERGIES: ALLERGIES No Known Allergies MEDICATIONS promethazine (PHENERGAN) 12.5 mg tablet Take 1 tablet by mouth every 6 hours as needed. PNV no.95/ferrous fum/folic ac ( ORAL) Take by mouth. REVIEW OF SYSTEMS: GENERAL: Negative for: Weight loss or gain, Fever or Chills, Weakness and Sleep difficulties. Physical Examination: BP 134/74 Pulse 96 Resp 16 Wt 251 lb (113.9kg) LMP 08/22/2017 BP w/Orthostatic Vitals Date and Time Orthostatic BP Orthostatic Pulse BP Pulse BP Position BP Site BP Cuff Size 12/30/1739 -- -- 134/74 96 Sitting Right Arm Large Adult Peak Flow Date and Time PF Resp 12/30/17 0939 -- 16 General appearance: Well appearing, alert, in no acute distress, well-hydrated, well nourished. Skin: Skin color, texture, turgor normal, no suspicious rashes or lesions Neuro: Gait normal. Sensation grossly intact. Reviewed chart, outside records, tests I personally interviewed, confirmed and edited the above information if obtained by others. TESTING: No results found for: GLUC, K, NA, CHLOR, CO2, CREAT, BUN, ANION, CA No results found for: GLUC, K, NA, CHLOR, CO2, CREAT, BUN, ANION, CA, TPROT, ALB, TBILI, ALKPHOS, AST, ALT Hemoglobin (g/dL) Date Value 10/18/2017 13.7 10/18/2017 13.7 Hematocrit (%) Date Value 10/18/2017 41.5 10/18/2017 39.9 WBC (k/uL) Date Value 10/18/2017 9.82 Cholesterol, Total (mg/dL) Date Value 09/16/2014 200 HDL Cholesterol (mg/dL) Date Value 09/16/2014 54 LDL Cholesterol (mg/dL) Date Value 09/16/2014 129 Triglyceride (mg/dL) Date Value 09/16/2014 83 Hemoglobin A1C Date Value Ref Range Status 06/11/2017 5.4 4.3 - 5.6 % Final 02/06/2016 5.6 4.3 - 5.6 % Final Ejection Fraction: No results found IMPRESSION: Ms. Lucio is a 32 year old woman presents for follow up of ABHINAV, recent sleep study results. After my examination and review of data, I make the following recommendations. PLAN AND RECOMMENDATIONS: 1. ABHINAV (obstructive sleep apnea) - ICD9: 327.23, ICD10: G47.33 (primary diagnosis) 2. 16 weeks gestation of - ICD9: V22.2, ICD10: Z3A.16 Discussed at visit today, will defer processing script for CPAP until seen by sleep specialist for their input. CPAP interpretation showed CPAP at a setting of 14 cm H2O eliminated apnea, laminated hypo-apneas and maintain oxygen saturations at 95% or higher. Recommendation is CPAP at a setting of 14 cm H2O using a dreamwear FFMof medium size, EPR of 3, heated humidity, and a ramp of 20 min. Copy of report provided to Ms. Lucio. Literature review shows 2 potential side effects of sleep apnea including increased risk of developing preeclampsia and gestational diabetes, no clear adverse effects on the fetus. No specific guidelines for ABHINAV treatment, no date on which to the or maternal parameters for treatment and no evidence of treatment and short-term impacts outcome. Advised follow-up with pre-gestational ABHINAV should have an evaluation by sleep provider for CPAP management during . Intrapartum care. In early consultation with anesthesia services for placement of regional anesthesia and continuous pulse oximetry. Patient's receiving opiates to be observed closely for respiratory suppression. The setting and analgesics strategies to minimize the need for systemic opioids methotrexate suppressed MALARIOLOGIST and respiratory function should be used.-(Up to date) Will refer to sleep medicine for further recommendations and assistance with managing ABHINAV during as needed - CONSULT TO SLEEP MEDICINE - ADULT Advised to go to ER if develops chest pain, shortness of breath, or severe worsening of symptoms. Discussed risks, benefits, alternatives, and potential side effects of medications. Ms. Lucio expressed understanding and agreed with the plan. Meredith Hardy APRN.MALARIOLOGIST Referring Provider: SELF [[id number]] Allergies As of Date: 12/30/2017 (No Known Allergies) Date Reviewed: 12/30/2017 Reviewed by: Cecily Mcnair LPN - Fully Assessed Reason for Visit: Results - Sleep Study [3564] Primary Visit Diagnosis:ABHINAV (obstructive sleep apnea) [G47.33] Other Visit Diagnosis:16 weeks gestation of [Z3A.16] Order(s):CONSULT TO SLEEP MEDICINE - ADULT [[id number]] Order #: [id number]: 1 Prescriptions as of 12/30/2017 Sig: PROMETHAZINE 12.5 MG TABLET Take 1 tablet by mouth every * ORAL Take by mouth. Problem List As Of Date 12/30/2017 Noted Resolved SUPERVIS NORMAL 1ST PREG [Z34.00] INVALID FOR*06/16/2007 SUPRF HIGH RISK NEC [O09.899] INVALID FOR*06/16/2007 PAP SMEAR OF CERVIX W ASCUS [R87.610] INVALID FOR*02/17/2008 CERVICAL HPV DNA POSITIVE [R87.810] INVALID FOR*02/17/2008 ABSCESS GLUTEAL [L02.31, L03.317] INVALID FOR*06/18/2012 Multinodular goiter [E04.2] INVALID FOR* Genital warts [A63.0] INVALID FOR* Tobacco use during [O99.330] INVALID FOR*01/26/2016 More... Patient requested diagnostic testing [Z01.89] INVALID FOR*01/26/2016 More... Threatened [O20.0] INVALID FOR* History of miscarriage [Z87.59] INVALID FOR* More... Tobacco use in [O99.330] INVALID FOR* More... Patient requested diagnostic testing [Z01.89] INVALID FOR* More... Spotting in , antepartum condition or *INVALID FOR* More... Thyroid goiter [E04.9] INVALID FOR* More... Quit smoking [Z87.891] INVALID FOR* More... Obesity in [O99.210] INVALID FOR* More... Encounter Status:Closed by MEREDITH ESTRELLA on 12/30/17 SEQUENT SCRN SECOND Collected: 12/17/2017 Status: F [facility] REPOS[facility] TYPE CODE TESTS RESULT OUT OF REFERENCE UNITS RANGE LAB SE1PAP MoM 0.61 SE1 IVY A LAB SE2AFP MoM 1.04 SE2 AFP LAB SE2HCG MoM 2.27 SE2 hCG LAB SE2UE3 MoM 0.89 SE2 Unconj uE3 LAB SE2INH MoM 1.73 SE2 Dimrc Inhibin A LAB SE1HCG MoM 1.33 SE1 hCG LAB SE2INT Screen Negative SE2 Interp Screen Negative LAB SE2SDN SE2 Scrn Rsk 1:1800 Dn Synd LAB SE2ADN 1:420 SE2 Age Rsk Dn Snyd LAB SE2STS SE2 Scr Rsk 1:70249 Trsmy 13 LAB SE2STR SE2 Scr Rsk <1:31748 Trsmy18 LAB SE2SON SE2 Scr Rsk 1:7600 ONTD LAB SE2RS View Seq Scrn results in Second Trim Scanned Documents link when available. LAB SEQLRV SEQ Staff Reviewed by Review Phong Cutler MD, PhD ([id number]) Performed By: #### SEQL2 #### [facility] [address] [place], [place] [address] SEQUENT SCRN FIRST Collected: 11/18/2017 Status: F [facility] AM [facility] REPOS[facility] TYPE CODE TESTS RESULT OUT OF REFERENCE UNITS RANGE LAB SE1PAP MoM 0.56 SE1 IVY A LAB SE1HCG MoM 1.26 SE1 hCG LAB SE1INT Final result pending second Final trimester SE1 result pending sample Interp second trimester sample LAB SE1SDN SE1 Scrn 1:1100 Rsk Dn Synd LAB SE1ADN 1:310 SE1 Age Rsk Dn Synd LAB SE1STR SE1 Scr <1:01266 Rsk Trsmy18 LAB SE1ATR SE1 Age 1:1400 Rsk Trsmy18 LAB SE1RS View Seq Scrn results in First Trim Scanned Documents link when available. LAB SEQLRV SEQ Staff Reviewed by Review Phong Cutler MD, PhD ([id number]) Performed By: #### SEQL1 #### [facility] [address] [place], [place] [address] PROGRESS Observed: 11/18/2017 Status: COMPLETED Source: [place] 9:49 AM [facility] RE[facility]IT[facility] HNO ID: [id number] Author: Truman Armas Service: (none) Author Type: Physician Type: Progress Notes Filed: 11/18/2017 9:51 AM Note Text: Please see ultrasound report for details of this visit. Truman Armas M.D. PROGRESS Observed: 11/01/2017 Status: COMPLETED Source: [place] 1:01 PM [facility] RE[facility]IT[facility] HNO ID: [id number] Author: Joel Cruz Service: (none) Author Type: Physician Type: Progress Notes Filed: 11/12/2017 8:07 AM Note Text: HISTORY Melvina Lucio is a 32 year old lady here to be formally established with me. Concerns for sleep apnea noted--was diagnosed 10 years ago. Saw sleep medicine, ABHINAV runs in family on father's side. Brother has ABHINAV. Is on CPAP Not effective and removes mask at night. More than 10 years since last sleep study. Has not gotten new mask lately through insurance. PAST MEDICAL HISTORY Diagnosis Date - Abnormal Pap smear of cervix - goiter - Miscarriage 2016 - Miscarriage 2016 - Sleep apnea Current Outpatient Prescriptions: promethazine (PHENERGAN) 12.5 mg tablet Take 1 tablet by mouth every 6 hours as needed. PNV no.95/ferrous fum/folic ac ( ORAL) Take by mouth. No current facility-administered medications for this visit. ALLERGIES No Known Allergies PAST SURGICAL HISTORY Procedure Laterality Date - DANDC (MISSED AB 1ST TRIMESTER) - IUD INSERTION (MINISTER ASSISTANT DEPT)_*FL 04/11/07 Mirena, removed - PAST SURGICAL HISTORY OF IANDD OF CYST ON BACK FAMILY HISTORY Problem Relation Age of Onset - Hypertension Mother - COPD Father - Stroke Maternal Grandmother - Aneurysm Maternal Grandmother brain - Hypertension Maternal Grandmother - Hypertension Maternal Grandfather - Diabetes Maternal Grandfather - Asthma Brother Social History Marital status: Spouse name: Kirk Years of education: 12 Number of children: 1 Occupational History 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 [employer]* Social History Main Topics Smoking status: Former Smoker Packs/day: 0.50 Years: 10.00 Types: Cigarettes Quit date: 09/26/2017 Smokeless tobacco: Never Used Alcohol use: No Drug use: No Sexual activity: Yes Partners with: Male Social History Narrative Merged History Encounter Single, 1 child Weston, age 6 in 2014 Getting 5-15 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 PHYSICAL EXAMINATION: Blood pressure 124/64, pulse 100, resp. rate 12, weight 103 kg (227 lb), last menstrual period 08/22/2017. General appearance: well appearing, in no acute distress, well-hydrated, well nourished Skin: Skin color, texture, turgor normal. No significant rashes or lesions. Head: Normal Eyes: Anicteric sclera. Pupils are equally round and reactive to light. Extraocular movements are intact. Ears: External ears normal. Canals clear. TM's unremarkable. Nose/Sinuses: negative Oropharynx: Lips, mucosa, and tongue normal. Teeth and gums normal. Oropharynx normal. Neck: Neck supple, no adenopathy; thyroid symmetric, normal size, no bruits. Lungs: Lungs clear to auscultation Heart: negative. RRR without murmur, gallop, or rubs. No ectopy. Abdomen: Abdomen soft, non-tender. Bowel sounds normal. No masses, organomegaly Extremities: Extremities normal. No deformities, edema, or skin discoloration. Good capillary refill. Musculoskeletal: grossly normal Peripheral pulses: Normal Neuro: Gait normal. Reflexes normal and symmetric. Sensation grossly intact. No gross focal neurological deficits. ASSESSMENT AND PLAN See diagnoses and orders Encounter Diagnosis ICD-10-CM 1. ABHINAV on CPAP G47.33 Z99.89 2. Multinodular goiter E04.2 Will get sleep study done through [facility]. 32 year old lady here to be formally established with me. History and medications reviewed. Epic updated as needed Above issues addressed with patient. Patient involved in shared decision making for management of her medical issues. Refills taken care of and meds adjusted as indicated after reviewed history, exam and labs. Health Maintenance reviewed. Updated record and/or ordered tests as recorded. Encouraged on efforts at healthy diet and regular exercise and adequate sleep. The majority of the visit was spent counseling and/or coordinating care for the patient. Xuhy-[id number] time was 30 minutes. Joel Cruz MD CNOV Observed: 11/01/2017 Status: COMPLETED Source: [place] 11:40 AM [facility] REPOSITORY Office Visit (INTMWS) MELVINA LUCIO ([id number]) 1985 F Date Time Provider Department 11/01/17 11:40 AM JOEL CRUZ INTMWS During your visit today, we recorded the following information about you: Pulse Respiration Blood pressure Weight 100/minute 12/minute 124/64 103 kg Joel Cruz MD 11/12/2017 8:07 AM Signed HISTORY Melvinarip Lucio is a 32 year old lady here to be formally established with me. Concerns for sleep apnea noted--was diagnosed 10 years ago. Saw sleep medicine, ABHINAV runs in family on father's side. Brother has ABHINAV. Is on CPAP Not effective and removes mask at night. More than 10 years since last sleep study. Has not gotten new mask lately through insurance. PAST MEDICAL HISTORY Diagnosis Date - Abnormal Pap smear of cervix - goiter - Miscarriage 2016 - Miscarriage 2016 - Sleep apnea Current Outpatient Prescriptions: promethazine (PHENERGAN) 12.5 mg tablet Take 1 tablet by mouth every 6 hours as needed. PNV no.95/ferrous fum/folic ac ( ORAL) Take by mouth. No current facility-administered medications for this visit. ALLERGIES No Known Allergies PAST SURGICAL HISTORY Procedure Laterality Date - DANDC (MISSED AB 1ST TRIMESTER) - IUD INSERTION (MINISTER ASSISTANT DEPT)_*FL 04/11/07 Braulio, removed - PAST SURGICAL HISTORY OF IANDD OF CYST ON BACK FAMILY HISTORY Problem Relation Age of Onset - Hypertension Mother - COPD Father - Stroke Maternal Grandmother - Aneurysm Maternal Grandmother brain - Hypertension Maternal Grandmother - Hypertension Maternal Grandfather - Diabetes Maternal Grandfather - Asthma Brother Social History Marital status: Spouse name: Kirk Years of education: 12 Number of children: 1 Occupational History 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 [employer]* Social History Main Topics Smoking status: Former Smoker Packs/day: 0.50 Years: 10.00 Types: Cigarettes Quit date: 09/26/2017 Smokeless tobacco: Never Used Alcohol use: No Drug use: No Sexual activity: Yes Partners with: Male Social History Narrative Merged History Encounter Single, 1 child Weston, age 6 in 2014 Getting 5-15 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 PHYSICAL EXAMINATION: Blood pressure 124/64, pulse 100, resp. rate 12, weight 103 kg (227 lb), last menstrual period 08/22/2017. General appearance: well appearing, in no acute distress, well-hydrated, well nourished Skin: Skin color, texture, turgor normal. No significant rashes or lesions. Head: Normal Eyes: Anicteric sclera. Pupils are equally round and reactive to light. Extraocular movements are intact. Ears: External ears normal. Canals clear. TM's unremarkable. Nose/Sinuses: negative Oropharynx: Lips, mucosa, and tongue normal. Teeth and gums normal. Oropharynx normal. Neck: Neck supple, no adenopathy; thyroid symmetric, normal size, no bruits. Lungs: Lungs clear to auscultation Heart: negative. RRR without murmur, gallop, or rubs. No ectopy. Abdomen: Abdomen soft, non-tender. Bowel sounds normal. No masses, organomegaly Extremities: Extremities normal. No deformities, edema, or skin discoloration. Good capillary refill. Musculoskeletal: grossly normal Peripheral pulses: Normal Neuro: Gait normal. Reflexes normal and symmetric. Sensation grossly intact. No gross focal neurological deficits. ASSESSMENT AND PLAN See diagnoses and orders Encounter Diagnosis ICD-10-CM 1. ABHINAV on CPAP G47.33 Z99.89 2. Multinodular goiter E04.2 Will get sleep study done through [facility]. 32 year old lady here to be formally established with me. History and medications reviewed. Epic updated as needed Above issues addressed with patient. Patient involved in shared decision making for management of her medical issues. Refills taken care of and meds adjusted as indicated after reviewed history, exam and labs. Health Maintenance reviewed. Updated record and/or ordered tests as recorded. Encouraged on efforts at healthy diet and regular exercise and adequate sleep. The majority of the visit was spent counseling and/or coordinating care for the patient. Sqjy-pz-yvih time was 30 minutes. Joel Cruz MD Referring Provider: JUSTIN ALEMAN [[id number]] Allergies As of Date: 11/01/2017 (No Known Allergies) Date Reviewed: 11/01/2017 Reviewed by: Levi Lan - Fully Assessed Reason for Visit: transfer care [Other] Primary Visit Diagnosis:ABHINAV on CPAP [G47.33, Z99.89] Other Visit Diagnosis:Multinodular goiter [E04.2] Prescriptions as of 11/01/2017 Sig: PROMETHAZINE 12.5 MG TABLET Take 1 tablet by mouth every * ORAL Take by mouth. Problem List As Of Date 11/01/2017 Noted Resolved SUPERVIS NORMAL 1ST PREG [Z34.00] INVALID FOR*06/16/2007 SUPRF HIGH RISK NEC [O09.899] INVALID FOR*06/16/2007 PAP SMEAR OF CERVIX W ASCUS [R87.610] INVALID FOR*02/17/2008 CERVICAL HPV DNA POSITIVE [R87.810] INVALID FOR*02/17/2008 ABSCESS GLUTEAL [L02.31, L03.317] INVALID FOR*06/18/2012 Multinodular goiter [E04.2] INVALID FOR* Genital warts [A63.0] INVALID FOR* Tobacco use during [O99.330] INVALID FOR*01/26/2016 More... Patient requested diagnostic testing [Z01.89] INVALID FOR*01/26/2016 More... Threatened [O20.0] INVALID FOR* History of miscarriage [Z87.59] INVALID FOR* More... Tobacco use in [O99.330] INVALID FOR* More... Patient requested diagnostic testing [Z01.89] INVALID FOR* More... Spotting in , antepartum condition or *INVALID FOR* More... Thyroid goiter [E04.9] INVALID FOR* More... Quit smoking [Z87.891] INVALID FOR* More... Obesity in [O99.210] INVALID FOR* More... Follow-up and Disposition History Recorded Encounter Status:Closed by JOEL CRUZ MD on 11/12/17 PROGRESS Observed: 10/30/2017 Status: COMPLETED Source: [place] 4:09 PM [facility] RE[facility] HNO ID: [id number] Author: Bebe Cuevas) Tasha Service: (none) Author Type: Nurse Practitioner Type: Progress Notes Filed: 10/30/2017 4:36 PM Note Text: Hadoop Software Engineer offered: Patient declines. Melvina Lucio is a 32 year old female who presents for problem visit Vaginal irriation for 1 day. HPI: pt states that she started noticing the irritation yesterday, feels like an electric shock in the vaginal, seems little more irritated today. Scant amount of brownish discharge on panty liner was noted today. PAST MEDICAL HISTORY Diagnosis Date - Abnormal Pap smear of cervix - goiter - Miscarriage 2016 - Miscarriage 2016 - Sleep apnea PAST SURGICAL HISTORY Procedure Laterality Date - DANDC (MISSED AB 1ST TRIMESTER) - IUD INSERTION (MINISTER ASSISTANT DEPT)_*FL 04/11/07 Mirena, removed - PAST SURGICAL HISTORY OF IANDD OF CYST ON BACK FAMILY HISTORY Problem Relation Age of Onset - Hypertension Mother - COPD Father - Stroke Maternal Grandmother - Aneurysm Maternal Grandmother brain - Hypertension Maternal Grandmother - Hypertension Maternal Grandfather - Diabetes Maternal Grandfather - Asthma Brother Social History Marital status: Spouse name: Kirk Years of education: 12 Number of children: 1 Occupational History 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 [employer]* Social History Main Topics Smoking status: Former Smoker Packs/day: 0.50 Years: 10.00 Types: Cigarettes Quit date: 09/26/2017 Smokeless tobacco: Never Used Alcohol use: No Drug use: No Sexual activity: Yes Partners with: Male Social History Narrative Merged History Encounter Single, 1 child Weston, age 6 in 2015 Getting 5-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 PNV no.95/ferrous fum/folic ac ( ORAL) Take by mouth. No current facility-administered medications for this visit. Allergies As of Date: 10/30/2017 (No Known Allergies) Fully Assessed 10/30/2017 REVIEW OF SYSTEMS Abdomen: No bloating, early satiety, indigestion, or increased flatulence. No abdominal pain, nausea, vomiting, diarrhea, or constipation. Bladder: No dysuria, gross hematuria, urinary frequency, urinary urgency, or incontinence. Expanded ROS: N/A Allergies and current medication updated:Yes EXAM: BP 100/68 Wt 230 lb (104.3kg) LMP 08/22/2017 GENERAL: pleasant, female in no apparent distress HEENT: Normocephalic, atraumatic, mucus membranes moist and no lesions CHEST: Normal inspiratory effort PELVIC: external genitalia normal, normal Bartholin's glands, urethra, Crescent Bar's glands, no cervical lesions, good vaginal support, physiologic discharge present, normal appearing perineal body and perianal region, in the posterior fourchette there is 2mm area that is painful to touch, slightly red and raise. NEURO: alert and oriented x3,exam grossly non-focal ASSESSMENT AND PLAN: No diagnosis found. Vulvar lesion Herpes culture sent Recommended warm soaks, avoid any irritates, pat dry, and wear loose clothing. If area becomes more painful or large call office. Bebe Cordova APRN.CARMENCITA CNOV Observed: 10/30/2017 Status: COMPLETED Source: [place] 4:00 PM [facility] REPOSITORY Office Visit (WOOB) MELVINA LUCIO ([id number]) 1985 F Date Time Provider Department 10/30/17 4:00 PM BEBE CORDOVA (CARMENCITA) WOOB During your visit today, we recorded the following information about you: Blood pressure Weight 100/68 104.3 kg Bebe Cordova APRN.CNP 10/30/2017 4:36 PM Signed Hadoop Software Engineer offered: Patient declines. Melvina Lucio is a 32 year old female who presents for problem visit Vaginal irriation for 1 day. HPI: pt states that she started noticing the irritation yesterday, feels like an electric shock in the vaginal, seems little more irritated today. Scant amount of brownish discharge on panty liner was noted today. PAST MEDICAL HISTORY Diagnosis Date - Abnormal Pap smear of cervix - goiter - Miscarriage 2016 - Miscarriage 2016 - Sleep apnea PAST SURGICAL HISTORY Procedure Laterality Date - DANDC (MISSED AB 1ST TRIMESTER) - IUD INSERTION (MINISTER ASSISTANT DEPT)_*FL 04/11/07 Mirena, removed - PAST SURGICAL HISTORY OF IANDD OF CYST ON BACK FAMILY HISTORY Problem Relation Age of Onset - Hypertension Mother - COPD Father - Stroke Maternal Grandmother - Aneurysm Maternal Grandmother brain - Hypertension Maternal Grandmother - Hypertension Maternal Grandfather - Diabetes Maternal Grandfather - Asthma Brother Social History Marital status: Spouse name: Kirk Years of education: 12 Number of children: 1 Occupational History 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 [employer]* Social History Main Topics Smoking status: Former Smoker Packs/day: 0.50 Years: 10.00 Types: Cigarettes Quit date: 09/26/2017 Smokeless tobacco: Never Used Alcohol use: No Drug use: No Sexual activity: Yes Partners with: Male Social History Narrative Merged History Encounter Single, 1 child Weston, age 6 in 2014 Getting 5-15 Works at [employer] on [employer] Current Outpatient Prescriptions: promethazine (PHENERGAN) 12.5 mg tablet Take 1 tablet by mouth every 6 hours as needed. PNV no.95/ferrous fum/folic ac ( ORAL) Take by mouth. No current facility-administered medications for this visit. Allergies As of Date: 10/30/2017 (No Known Allergies) Fully Assessed 10/30/2017 REVIEW OF SYSTEMS Abdomen: No bloating, early satiety, indigestion, or increased flatulence. No abdominal pain, nausea, vomiting, diarrhea, or constipation. Bladder: No dysuria, gross hematuria, urinary frequency, urinary urgency, or incontinence. Expanded ROS: N/A Allergies and current medication updated:Yes EXAM: BP 100/68 Wt 230 lb (104.3kg) LMP 08/22/2017 GENERAL: pleasant, female in no apparent distress HEENT: Normocephalic, atraumatic, mucus membranes moist and no lesions CHEST: Normal inspiratory effort PELVIC: external genitalia normal, normal Bartholin's glands, urethra, Crescent Bar's glands, no cervical lesions, good vaginal support, physiologic discharge present, normal appearing perineal body and perianal region, in the posterior fourchette there is 2mm area that is painful to touch, slightly red and raise. NEURO: alert and oriented x3,exam grossly non-focal ASSESSMENT AND PLAN: No diagnosis found. Vulvar lesion Herpes culture sent Recommended warm soaks, avoid any irritates, pat dry, and wear loose clothing. If area becomes more painful or large call office. Bebe Cordova, CLIF.COLOR MAKER Referring Provider: SELF [[id number]] Allergies As of Date: 10/30/2017 (No Known Allergies) Date Reviewed: 10/30/2017 Reviewed by: Bebe Cuevas) Tasha - Fully Assessed Reason for Visit: Vaginal Problem [117] Primary Visit Diagnosis:Vaginal irritation [N89.8] Order(s):HSV 1,2/VZV AMP MOLECULAR DETECT [SQHSVVZV] Order #: [id number] Prescriptions as of 10/30/2017 Sig: PROMETHAZINE 12.5 MG TABLET Take 1 tablet by mouth every * ORAL Take by mouth. Problem List As Of Date 10/30/2017 Noted Resolved SUPERVIS NORMAL 1ST PREG [Z34.00] INVALID FOR*06/16/2007 [facility] HIGH RISK NEC [O09.899] INVALID FOR*06/16/2007 PAP SMEAR OF CERVIX W ASCUS [R87.610] INVALID FOR*02/17/2008 CERVICAL HPV DNA POSITIVE [R87.810] INVALID FOR*02/17/2008 ABSCESS GLUTEAL [L02.31, L03.317] INVALID FOR*06/18/2012 Multinodular goiter [E04.2] INVALID FOR* Genital warts [A63.0] INVALID FOR* Tobacco use during [O99.330] INVALID FOR*01/26/2016 More... Patient requested diagnostic testing [Z01.89] INVALID FOR*01/26/2016 More... Threatened [O20.0] INVALID FOR* History of miscarriage [Z87.59] INVALID FOR* More... Tobacco use in [O99.330] INVALID FOR* More... Patient requested diagnostic testing [Z01.89] INVALID FOR* More... Spotting in , antepartum condition or *INVALID FOR* More... Thyroid goiter [E04.9] INVALID FOR* More... Quit smoking [Z87.891] INVALID FOR* More... Obesity in [O99.210] INVALID FOR* More... Encounter Status:Closed by BEBE CORDOVA on 10/30/17 HSV1,2/VZV AMPLIF Collected: 10/30/2017 Status: F Source: [place] 4:17 AM [facility] REPOSITORY TYPE CODE TESTS RESULT OUT OF REFERENCE UNITS RANGE LAB HVZSRC Specimen Lesion Source LAB HRPSV1 HSV Type 1, Negative for HDA Herpes Simplex virus Type 1 by Molecular Detection. LAB HRPSV2 HSV Type 2, Negative for HDA Herpes Simplex virus Type 2 by Molecular Detection. LAB VZOSV V Zoster Virus, Negative for HDA Varicella Zoster virus by [facility]. Performed By: #### HSVVZV #### [facility] [address] [place] [address] TOXICOLOGY SCREEN,UR Collected: 10/18/2017 Status: F Source: [place] 2:45 PM [facility] REPOSITORY TYPE CODE TESTS RESULT OUT OF REFERENCE UNITS RANGE LAB UPCP2 Negative Negative Phencyclidin e, Urine Result Comment: Cutoff threshold at 25 ng/mL. LAB UBENZ2 Negative Benzodiazepines, Ur Negative Result Comment: Cutoff threshold at 200 ng/mL. LAB UCOC2 Negative Cocaine, Negative Urine Result Comment: Cutoff threshold at 300 ng/mL. LAB UAMPH2 Negative Amphetamines, Urine Negative Result Comment: Cutoff threshold at 1000 ng/mL. LAB UTHC2 Negative Cannabinoids, Urine Negative Result Comment: Cutoff threshold at 50 ng/mL. LAB UOPI2 Negative Opiates, Negative Urine Result Comment: Cutoff threshold at 300 ng/mL. LAB UBARB2 Negative Barbiturates, Urine Negative Result Comment: Cutoff threshold at 200 ng/mL. LAB UETOH <11 mg/dL <11 Ethanol, Urine LAB UOXYC Negative Oxycodone, Negative Urine Result Comment: Cutoff threshold at 100 ng/mL. Comment: Immunoassay screen only. Cross reactivity with other substances can occur with immunoassay screening. Detection of any drug(s) in this urine toxicology panel is presumptive only. These tests are for med ical purposes only and should not be used for compliance monitoring, legal, or forensic use. In clinical settings, confirmatory testing is at the practitioner's discretion [1]. If clinically indicated, confirmation by high specificity, quantitative methodology may be requested on the same speci men through Client Services ([phone]) if contacted within 48 hours of initial testing. [1]Substance Abuse and Mental Health Services Administration (2012). Clinical Drug Testing in Primary Care Technical Assistance Publication Series 32. Department of Health and Human Services, [place], p.10. These tests were developed and their performance characteristics determined by [facility] Andrea [facility] [place] ([facility]). They have not been cleared or a pproved by the FDA. [facility] is regulated under CLIA as qualified to perform high complexity testing. These tests are used for clinical purposes. They should not be regarded as investigational or for research. Performed By: #### UTOX2 #### [facility] [address] [place], [place] [address] Observed: 10/18/2017 Status: F Source: [place] URINE CULTURE 2:45 PM [facility] REPOSITORY Sp. Request/Comment: - Specimen received in preservative Culture Result - <10,000 CFU/ml Normal urogenital dewey Performed By: #### URCUL #### [place] [id number] [place], [place] [address] CBC Collected: 10/18/2017 Status: F Source: [place] 11:25 AM [facility] REPOSITORY TYPE CODE TESTS RESULT OUT OF REFERENCE UNITS RANGE LAB WBC 3.70-11.00 k/uL WBC 9.82 LAB RBC 3.90-5.20 m/uL RBC 4.37 LAB HGB 11.5-15.5 g/dL Hemoglobin 13.7 LAB HCT 36.0-46.0 % Hematocrit 41.5 LAB MCV 80.0-100.0 fL MCV 95.0 LAB MCH 26.0-34.0 pG MCH 31.4 LAB MCHC 30.5-36.0 g/dL MCHC 33.0 LAB RDWCV 11.5-15.0 % RDW-CV 12.0 LAB PLTCT 150-400 k/uL Platelet Count 337 LAB MPV 9.0-12.7 fL MPV 10.5 LAB ABSNUC <0.01 k/uL Absolute nRBC <0.01 Performed By: #### CBC, RUBIGG, SYPHGX, HBSAG, HIV12C #### [facility] [address] [place] [address] RUBELLA IGG ANTIBODY Collected: 10/18/2017 Status: F Source: [place] 11:25 AM [facility] REPOSITORY TYPE CODE TESTS RESULT OUT OF RANGE REFERENCE UNITS LAB RUBGQL Negative Abnormal Rubella IgG Positive Alert Ab, Qual Result Comment: Sample is considered positive for IgG antibodies to rubella virus. A positive result indicates previous exposure to Rubella virus or vaccination. LAB RUBQNT Index Value Rubella IgG Ab 8.50 Result Comment: Index values are interpreted as follows: Negative specimens <0.90 Equivocol specimens 0.90 to 0.99 Positive specimens >0.99 The magnitude of the measured result is not indicative of the amount of antibody present. Performed By: #### CBC, RUBIGG, SYPHGX, HBSAG, HIV12C #### [place] [address] SYPHILIS IGG WITH Collected: 10/18/2017 Status: F Source: [facility] 11:25 AM [facility] REPOSITORY TYPE CODE TESTS RESULT OUT OF REFERENCE UNITS RANGE LAB SYPHQL Nonreactive Syphilis IgG, Nonreactive Qual Result Comment: In conjunction with this result, the immune status of the patient should be evaluated based on their clinical status, related risk factors, and other diagnostic test results. LAB SYPHLG AI Syphilis IgG <0.2 Result Comment: Antibody index is interpreted as follows: Non reactive SPECIMENS <=0.8 Weak reactive SPECIMENS 0.9 to 5.9 Reactive SPECIMENS >=6.0 Performed By: #### CBC, RUBIGG, SYPHGX, HBSAG, HIV12C #### [place] [id number] [place] [id number] HEPATITIS B SURF. AG Collected: 10/18/2017 Status: F Source: [place] 11:25 AM [facility] REPOSITORY TYPE CODE TESTS RESULT OUT OF REFERENCE UNITS RANGE LAB HBSAG Negative Hepatitis B Negative Surf. Ag Performed By: #### CBC, RUBIGG, SYPHGX, HBSAG, HIV12C #### [facility] [address] [place] [id number] HIV 12 COMBO (AG/AB) Collected: 10/18/2017 Status: F Source: [place] 11:25 AM [facility] REPOSITORY TYPE CODE TESTS RESULT OUT OF REFERENCE UNITS RANGE LAB HVAGAB Non Reactive HIV Non Reactive 12 Ag/Ab Result Comment: (NOTE) HIV Information: [place] Rev. Code 3701.243(E): This information has been disclosed to you from confidential records protected from disclosure by state law. You shall make no further disclosure of this information without the specific, written, and informed release of the individual to whom it pertains, or as otherwise permitted by state law. A general authorization for the release of medical or other information is not sufficient for the purpose of the release of HIV test results or diagnoses. Performed By: #### CBC, RUBIGG, SYPHGX, HBSAG, HIV12C #### [place] [id number] [place] [id number] 50G, 1HR GEST. Collected: 10/18/2017 Status: F Source: [place] GSCRN 11:25 AM [facility] REPOSITORY TYPE CODE TESTS RESULT OUT OF REFERENCE UNITS RANGE LAB GLUP 74-134 mg/dL Low Glucose 73 Screen, Preg Result Comment: [place] Congress of Obstetricians and Gynecologists ([place]/Coustan) guidelines state a gestational diabetes mellitus positive screen is made, in women not previously diagnosed with overt diabetes, when the 1 hr plasma glucose level is equal to or above 140 mg/dL. The [facility] [place] recommends a 135 mg/dL cutoff. Performed By: #### GLTGST #### [facility] [address] [place], [place] [address] TYPE AND SCR,PRENATL Collected: 10/18/2017 Status: F Source: [place] 11:25 AM [facility] REPOSITORY TYPE CODE TESTS RESULT OUT OF REFERENCE UNITS RANGE LAB %ABR B ABO/RH(D) POSITIVE LAB % Antibody NEG Screen Performed By: #### TSPN #### [place] [address] HGB EVAL CASCADE Collected: 10/18/2017 Status: F Source: [place] 11:25 AM [facility] REPOSITORY TYPE CODE TESTS RESULT OUT OF REFERENCE UNITS RANGE LAB HBAPER % Hb A Percent 95.9 LAB HBFPER 0.0-1.8 % Hb F Percent 1.6 LAB HBA2PE 1.5-3.5 % Hb A2 Percent 2.5 LAB ABNHB % Abnormal No Hemoglobin abnormal hemoglobin identified. LAB HBINT Interpretation SEE COMMENT Result Comment: Hemoglobins were analyzed by capillary electrophoresis and CBC red cell parameters were reviewed. Normal pattern LAB HBSREV Staff Review Reviewed by Suzanne Francisco MD ([id number]) LAB RBC 3.90-5. m/uL 20 RBC 4.25 LAB HGB 11.5-15 g/dL .5 Hemoglobin 13.7 LAB HCT 36.0-46 % .0 Hematocrit 39.9 LAB MCV 80.0-10 fL 0.0 MCV 93.9 LAB MCH 26.0-34 pG .0 MCH 32.2 LAB MCHC 30.5-36 g/dL .0 MCHC 34.3 LAB RDWCV 11.5-15 % .0 RDW-CV 11.9 Performed By: #### HBEVAL #### [place] [id number] GC/CHLAMYDIA AMPLIF Collected: 10/18/2017 Status: F Source: [place] 10:30 AM [facility] REPOSITORY TYPE CODE TESTS RESULT OUT OF REFERENCE UNITS RANGE LAB GCCTSR GC/Chlam Amp Cervix Source LAB GCAMPL GC Negative Amplification for Neisseria gonorrhoeae by amplification. LAB CLAMPL Chlamydia Negative Amplif for Chlamydia trachomatis by amplification. Performed By: #### GCCT #### [place] [id number] [place] [id number] PROGRESS Observed: 10/18/2017 Status: COMPLETED Source: [place] 10:09 AM [facility] REPOSITORY HNO ID: [id number] Author: Cara Felton Service: (none) Author Type: Physician Type: Progress Notes Filed: 10/18/2017 11:14 AM Note Text: INITIAL OB ASSESSMENT OB Provider: Cara Aldridge MD HPI: Melvina Lucio is a 32 year old female here to establish Obstetrical Care. Patient's last menstrual period was 08/22/2017 (approximate). from OB Dating Form. Cycle length: 03 days Complaints: nausea and vomiting was unplanned but accepted. Obstetric History T1 L1 SAB1 TAB0 Ectopic0 Multiple0 Live Births1 Prior : never History of 4th degree laceration: No Patient's Risk Screening for delivery: History of abnormal pap: No Prior treatment for cervical dysplasia: none. History of STDs: None Tobacco use: No- quit when found out she was Caffeine use: No Drug use: No Alcohol use: No Multivitamin with Folic acid: Yes Occupation: [employer] heritage: No Would refuse blood transfusion if medically necessary: No No weight on file for this encounter. Patient BMI over 30? Yes, Consult to [facility] ordered Marital Status: Partner: Name: Sandrita Lucio Age: 40 Occupation: [employer] Gender: male History of STDs: None PAST MEDICAL HISTORY Diagnosis Date - Abnormal Pap smear of cervix - goiter - Miscarriage 2016 - Miscarriage 2016 - Sleep apnea PAST SURGICAL HISTORY Procedure Laterality Date - DANDC (MISSED AB 1ST TRIMESTER) - IUD INSERTION (MINISTER ASSISTANT DEPT)_*FL 04/11/07 Mirena, removed - PAST SURGICAL HISTORY OF IANDD OF CYST ON BACK Current Outpatient Prescriptions on File Prior to Visit: PNV no.95/ferrous fum/folic ac ( ORAL) Take by mouth. No current facility-administered medications on file prior to visit. Review of Systems: GENERAL: Negative for: Fever or Chills HEENT: Negative for: Headache, Impaired Vision, Ringing in Ears, Nosebleeds NECK: Negative for: Swelling, Pain, Stiffness RESPIRATORY: Negative for: Cough, Shortness of breath, Wheezing GASTROINTESTINAL: Negative for: Heartburn, Constipation, Diarrhea, Blood in stool, Vomiting MUSCULOSKELETAL: Negative for: Muscle or joint pain, stiffness, Joint swelling NEUROLOGIC/PSYCHIATRIC: Negative for: Weakness, Paralysis, Numbness, Tingling, Tremor, Anxiety, Depression, Memory loss SKIN: Negative for: Rash, Itching GENITOURINARY: Negative for: vaginal itching, vaginal discharge, hematuria or dysuria PHYSICAL EXAM: LMP 08/22/2017 GENERAL: pleasant female in no apparent distress DERMATOLOGY: Normal, without lesions, non-icteric and non-hirsute NECK: Supple, full range of motion, no adenopathy and thyroid normal BREAST: soft, non-tender, symmetric, no dominant mass, normal nipple-areolar complex, no lymphadenopathy and no nipple discharge ABDOMEN: soft, non-tender and no masses NEURO: alert and oriented x3,exam grossly non-focal PELVIS: External genitalia normal without lesions. Perineal body intact. No vaginal or cervical lesions. Cervix closed. Uterus 8 week size. No adnexal masses or tenderness. Clinical Pelvimetry: Pelvimetry clinically assessed as adequate Limited OB ultrasound exam: single intrauterine and positive cardiac activity ASSESSMENT: 32 year old at 8.1 wks gestational age PLAN: 1) Patient oriented to practice. Discussed nutrition, folic acid supplementation, dietary guidelines, exercise, smoking, alcohol, caffeine, and drug use. Discussed routine OB labs including STD/HIV. Discussed aneuploidy screening options including serum screening and nuchal translucency. 2) NT ordered 3) Hg Electrophoresis ordered 4) VIT B6 reviewed- phenergan ordered if fails vit B6 Follow up in 4 weeks or sooner prn. Cara Wheeler MD PROGRESS Observed: 10/03/2017 Status: COMPLETED Source: [place] 4:45 PM [facility] RE[facility]IT[facility] ID: [id number] Author: Dayan Schilling RN Service: (none) Author Type: (none) Type: Progress Notes Filed: 10/03/2017 4:57 PM Note Text: #: 1, Date: [birth year], Sex: Male, Weight: 6 lb 13 oz (3.09 kg), GA: 40w4d, Delivery: VAGINAL , Apgar1: 8, Apgar5: 9, Living: Living, Comments: Induced- elective induction #: 2, Date: 10/14/15, Sex: None, Weight: None, GA: 10w1d, Delivery: None, Apgar1: None, Apgar5: None, Living: None, Comments: None #: 3, Date: 02/2016, Sex: None, Weight: None, GA: 8w0d, Delivery: ECTOPIC , Apgar1: None, Apgar5: None, Living: None, Comments: None #: 4, Date: None, Sex: None, Weight: None, GA: None, Delivery: None, Apgar1: None, Apgar5: None, Living: None, Comments: None CNNURSE Observed: 10/03/2017 Status: COMPLETED Source: [place] 3:00 PM [facility] REPOSITORY Nurse Visit (WOOB) MELVINA LUCIO ([id number]) 1985 F Date Time Provider Department 10/03/17 3:00 PM NURSE PNOB [facility] WOOB During your visit today, we recorded the following information about you: Last Period 08/22/17 Dayan Schilling RN 10/03/2017 3:32 PM Signed SEQUENTIAL SCREENINGS [facility] offers sequential screenings for women who are interested in screenings for chromosomal abnormalities and certain defects during a . The sequential screen combines ultrasound and blood tests to determine the risk of chromosomal abnormalities, including Down's Syndrome (Trisomy 21) and Trisomy 18, as well as open neural tube defects including spina bifida. Ultrasound examination is performed between 11 weeks and 13 weeks gestational age. Blood tests are drawn after the ultrasound and again later in the between 15 and 21 weeks gestational age. Please let your physician know if you are interested in this testing. It will require an appointment with our power technician. This is not an ultrasound performed by a physician in our office during a routine visit. SIGNS AND SYMPTOMS OF LABOR 1. Contractions every 10 minutes or more often 2. Clear, pink, or brownish fluid (water) leaking from vagina 3. Feeling that baby is pushing down, pressure 4. Low, dull backache 5. Cramps that feel like a period 6. Cramps with or without diarrhea If you notice any of the above symptoms, contact our office at [phone] and ask to speak with a nurse. After hours, you can call [facility] at [phone] OR call [facility] at [phone] and ask to have the doctor control panel assembler paged. If you consider this an emergency, dial [phone] or go to your nearest emergency department. Cord-Blood Banking Up until recently, the umbilical cord--along with the blood that remained in it after a baby was born and the cord cut--was simply discarded by the hospital. Then, in the late , researchers discovered that cord blood possessed unusual properties that made it useful in the treatment of patients with some cancers and other illnesses. While the actual process of collecting cord blood is straightforward, many parents are not even aware that this option now exists, much less familiar with all the issues involved. The case for saving your baby's cord blood The blood running back and forth between your baby and the placenta is full of immature cells called stem cells. Unlike embryonic stem cells, which have the ability to develop into any type of body cell, cord-blood stem cells already are locked into a certain, vital function: making all the different components of the blood, such as platelets, white blood cells, and red blood cells-serving, in effect, like bone marrow. When transfused into a patient whose own blood cells have faulty genetic coding or have been destroyed by chemotherapy or other cancer treatments, the cord-blood cells can implant themselves in the bone marrow and generate legions of new, healthy cells. These days, cord-blood transplants most commonly are used in cancer patients when a donor can't be found for a bone-marrow transplant. The treatment is particularly effective in young patients-the [facility] Cord Blood Bank reports a 70 percent success rate in children, but only 20 to 40 percent in adults. Researchers envision improving those odds and see many future applications as well, such as curing sickle cell disease and other blood-related genetic illnesses. So there is a possibility that your child, or someone else, may need these super-healthy and versatile cells one day. The drawbacks Aside from not knowing about this medical option, the main reason most people do not save their baby's stem cells is cost. In a private blood bank, the initial costs run from $275 to $1,500. Most also charge a yearly storage fee of $50 to $95. The advantage of using a private bank is that your sample is saved for only you to use. An alternative to private banking Public cord-blood lucia are an alternative. These cost no money to use, but your sample is not specifically saved for you. Another person with a more immediate need may use it. If the time should come that you need stem cells, yours may still be available, or you may use donations from other people without charge. You also can direct your sample to go to a relative with an immediate need if the blood type matches. Anyone else needing to use stem cells from a public bank who has not been a donor must pay for it, sometimes tens of thousands of dollars. Will my family benefit from saving stem cells? Right now, situations in which stem cells would be helpful are quite rare. As mentioned earlier, stem-cell transplants are most commonly used for rare genetic conditions and for some types of cancer, including leukemia and lymphoma. And even with these present uses, many questions remain. In cancer treatment, for example, some researchers are concerned about the wisdom of transplanting back into the child the same cells that already showed a propensity to become malignant. Doctors also aren't sure if the number of cells taken at the time of would be enough to treat a full-grown 16-year-old. It is also not completely clear how active the cells would be after years of being stored. The treatment is so new and rare, we just don't have the data yet to resolve these important issues. What do the experts say? The [place] [employer] encourages philanthropic blood banking in public lucia, but only for families with a current or potential need. Blood-bank proponents encourage any kind of banking, pointing out that research is getting closer and closer to many diverse, live-saving applications. How do I decide? Each family must weigh the pros and cons for themselves. Some families say that any cost is worth their peace of mind. Others say that in the face of uncertainty about the effectiveness of the treatment, they will use their resources elsewhere. Some choose the middle ground of donating publicly, knowing that their sample might benefit another family, if not themselves. For more information, ask your doctor or nurse, and be sure to check out our article on the technical aspects of cord-blood banking. Technical Aspects of Cord-Blood Banking If you are interested in storing your baby's umbilical-cord blood because of its possible use in emerging medical treatments, you must make arrangements with a blood bank before your child is born. The collection procedure is quite simple: After delivery of the baby, the umbilical cord is clamped and cut in the usual way. The blood that remains in the umbilical-cord vessels is then collected in sterile containers. The blood may be removed from the cord with a large needle or allowed to flow freely, depending on the company's collection system. The containers may look like large test tubes or like the plastic bags used in a blood bank. It does not cause the mother or the baby any pain to collect the blood, and no blood is taken that the baby needs at the moment. The nurse, prepress manager, or physician will then label the samples, check them over with you, and package them for a special pickup arranged with a commercial carrier. When the blood arrives at the blood-bank facility, it is processed and the parents are notified. It is then kept in an advanced storage system for years. How do I know that my sample is safe? Power outages and bankruptcies potentially could threaten any organization, but so far none have been reported. It is to be hoped that the scientists in these lucia would arrange for safe transfer to another facility if the need arose. YOU MUST MAKE ARRANGEMENTS AHEAD OF TIME! Public cord-blood lucia--DONATION: [employer] [phone] [facility] Placental Blood Program, [facility] Umbilical Cord Blood Bank, Private cord-blood lucia--SAVING FOR YOUR OWN USE: [employer], (I think this is the least expensive) [employer] [phone] [employer], [phone]) [employer] [place] [facility] Blood [facility], [phone] 700-CORD Cells, [phone] [place] [facility], Cord Blood Registry, (253) CORDBLOOD [employer], An Internet search may provide you with additional listings. Dayan Schilling RN 10/03/2017 4:57 PM Signed #: 1, Date: [birth year], Sex: Male, Weight: 6 lb 13 oz (3.09 kg), GA: 40w4d, Delivery: VAGINAL , Apgar1: 8, Apgar5: 9, Living: Living, Comments: Induced- elective induction #: 2, Date: 10/14/15, Sex: None, Weight: None, GA: 10w1d, Delivery: None, Apgar1: None, Apgar5: None, Living: None, Comments: None #: 3, Date: 02/2016, Sex: None, Weight: None, GA: 8w0d, Delivery: ECTOPIC , Apgar1: None, Apgar5: None, Living: None, Comments: None #: 4, Date: None, Sex: None, Weight: None, GA: None, Delivery: None, Apgar1: None, Apgar5: None, Living: None, Comments: None Referring Provider: SELF [[id number]] Allergies As of Date: 10/03/2017 (No Known Allergies) Date Reviewed: 10/03/2017 Reviewed by: Dayan Schilling RN - Fully Assessed Reason for Visit: Care [86] Cmt: Pre-New OB Primary Visit Diagnosis:Encounter for supervision of normal in multigravida in first trimester [Z34.81] Other Visit Diagnoses:Spotting in , antepartum condition or complication [O26.859] Thyroid goiter [E04.9] Quit smoking [Z87.891] Obesity in [O99.210] Patient requested diagnostic testing [Z01.89] Order(s):DOUG PT ED HOME CARE LIAISON [[id number]] Order #: [id number]: 1 FUTURE DOUG PT ED HOME CARE LIAISON [[id number]] Order #: [id number]. #:[id number]: [id number] Prescriptions as of 10/03/2017 Sig: ORAL Take by mouth. Problem List As Of Date 10/03/2017 Noted Resolved SUPERVIS NORMAL 1ST PREG [Z34.00] INVALID FOR*06/16/2007 SUPRF HIGH RISK NEC [O09.899] INVALID FOR*06/16/2007 PAP SMEAR OF CERVIX W ASCUS [R87.610] INVALID FOR*02/17/2008 CERVICAL HPV DNA POSITIVE [R87.810] INVALID FOR*02/17/2008 ABSCESS GLUTEAL [L02.31, L03.317] INVALID FOR*06/18/2012 Multinodular goiter [E04.2] INVALID FOR* Genital warts [A63.0] INVALID FOR* Tobacco use during [O99.330] INVALID FOR*01/26/2016 More... Patient requested diagnostic testing [Z01.89] INVALID FOR*01/26/2016 More... Threatened [O20.0] INVALID FOR* History of miscarriage [Z87.59] INVALID FOR* More... Tobacco use in [O99.330] INVALID FOR* More... Patient requested diagnostic testing [Z01.89] INVALID FOR* More... Spotting in , antepartum condition or *INVALID FOR* More... Thyroid goiter [E04.9] INVALID FOR* More... Quit smoking [Z87.891] INVALID FOR* More... Obesity in [O99.210] INVALID FOR* More... Other instructions from your clinician: SEQUENTIAL SCREENINGS [facility] offers sequential screenings for women who are interested in screenings for chromosomal abnormalities and certain defects during a . The sequential screen combines ultrasound and blood tests to determine the risk of chromosomal abnormalities, including Down's Syndrome (Trisomy 21) and Trisomy 18, as well as open neural tube defects including spina bifida. Ultrasound examination is performed between 11 weeks and 13 weeks gestational age. Blood tests are drawn after the ultrasound and again later in the between 15 and 21 weeks gestational age. Please let your physician know if you are interested in this testing. It will require an appointment with our power technician. This is not an ultrasound performed by a physician in our office during a routine visit. SIGNS AND SYMPTOMS OF LABOR 1. Contractions every 10 minutes or more often 2. Clear, pink, or brownish fluid (water) leaking from vagina 3. Feeling that baby is pushing down, pressure 4. Low, dull backache 5. Cramps that feel like a period 6. Cramps with or without diarrhea If you notice any of the above symptoms, contact our office at [phone] and ask to speak with a nurse. After hours, you can call [facility] at [phone] OR call [facility] at [phone] and ask to have the doctor control panel assembler paged. If you consider this an emergency, dial [phone] or go to your nearest emergency department. Cord-Blood Banking Up until recently, the umbilical cord--along with the blood that remained in it after a baby was born and the cord cut--was simply discarded by the hospital. Then, in the late , researchers discovered that cord blood possessed unusual properties that made it useful in the treatment of patients with some cancers and other illnesses. While the actual process of collecting cord blood is straightforward, many parents are not even aware that this option now exists, much less familiar with all the issues involved. The case for saving your baby's cord blood The blood running back and forth between your baby and the placenta is full of immature cells called stem cells. Unlike embryonic stem cells, which have the ability to develop into any type of body cell, cord-blood stem cells already are locked into a certain, vital function: making all the different components of the blood, such as platelets, white blood cells, and red blood cells-serving, in effect, like bone marrow. When transfused into a patient whose own blood cells have faulty genetic coding or have been destroyed by chemotherapy or other cancer treatments, the cord-blood cells can implant themselves in the bone marrow and generate legions of new, healthy cells. These days, cord-blood transplants most commonly are used in cancer patients when a donor can't be found for a bone-marrow transplant. The treatment is particularly effective in young patients- the [facility] Cord Blood Bank reports a 70 percent success rate in children, but only 20 to 40 percent in adults. Researchers envision improving those odds and see many future applications as well, such as curing sickle cell disease and other blood-related genetic illnesses. So there is a possibility that your child, or someone else, may need these super-healthy and versatile cells one day. The drawbacks Aside from not knowing about this medical option, the main reason most people do not save their baby's stem cells is cost. In a private blood bank, the initial costs run from $275 to $1,500. Most also charge a yearly storage fee of $50 to $95. The advantage of using a private bank is that your sample is saved for only you to use. An alternative to private banking Public cord-blood lucia are an alternative. These cost no money to use, but your sample is not specifically saved for you. Another person with a more immediate need may use it. If the time should come that you need stem cells, yours may still be available, or you may use donations from other people without charge. You also can direct your sample to go to a relative with an immediate need if the blood type matches. Anyone else needing to use stem cells from a public bank who has not been a donor must pay for it, sometimes tens of thousands of dollars. Will my family benefit from saving stem cells? Right now, situations in which stem cells would be helpful are quite rare. As mentioned earlier, stem-cell transplants are most commonly used for rare genetic conditions and for some types of cancer, including leukemia and lymphoma. And even with these present uses, many questions remain. In cancer treatment, for example, some researchers are concerned about the wisdom of transplanting back into the child the same cells that already showed a propensity to become malignant. Doctors also aren't sure if the number of cells taken at the time of would be enough to treat a full-grown 16-year-old. It is also not completely clear how active the cells would be after years of being stored. The treatment is so new and rare, we just don't have the data yet to resolve these important issues. What do the experts say? The [place] [employer] encourages philanthropic blood banking in public lucia, but only for families with a current or potential need. Blood-bank proponents encourage any kind of banking, pointing out that research is getting closer and closer to many diverse, live-saving applications. How do I decide? Each family must weigh the pros and cons for themselves. Some families say that any cost is worth their peace of mind. Others say that in the face of uncertainty about the effectiveness of the treatment, they will use their resources elsewhere. Some choose the middle ground of donating publicly, knowing that their sample might benefit another family, if not themselves. For more information, ask your doctor or nurse, and be sure to check out our article on the technical aspects of cord-blood banking. Technical Aspects of Cord-Blood Banking If you are interested in storing your baby's umbilical- cord blood because of its possible use in emerging medical treatments, you must make arrangements with a blood bank before your child is born. The collection procedure is quite simple: After delivery of the baby, the umbilical cord is clamped and cut in the usual way. The blood that remains in the umbilical-cord vessels is then collected in sterile containers. The blood may be removed from the cord with a large needle or allowed to flow freely, depending on the company's collection system. The containers may look like large test tubes or like the plastic bags used in a blood bank. It does not cause the mother or the baby any pain to collect the blood, and no blood is taken that the baby needs at the moment. The nurse, prepress manager, or physician will then label the samples, check them over with you, and package them for a special pickup arranged with a commercial carrier. When the blood arrives at the blood- bank facility, it is processed and the parents are notified. It is then kept in an advanced storage system for years. How do I know that my sample is safe? Power outages and bankruptcies potentially could threaten any organization, but so far none have been reported. It is to be hoped that the scientists in these lucia would arrange for safe transfer to another facility if the need arose. YOU MUST MAKE ARRANGEMENTS AHEAD OF TIME! Public cord-blood lucia--DONATION: [employer] [phone] [facility] Placental Blood Program, [facility] Umbilical Cord Blood Bank, Private cord-blood lucia--SAVING FOR YOUR OWN USE: [employer], (I think this is the least expensive) [employer] [phone] [employer], [phone]) [employer] [place] [facility] Blood [facility], [phone] 700-CORD Cells, [phone] [place] [facility], Cord Blood Registry, (487) C[facility]BLUpper [facility], An Internet search may provide you with additional listings. Disposition: Return in about 2 weeks (around 10/18/2017) for New OB with Dr Aldridge. Follow-up and Disposition History Recorded Encounter Status:Closed by DAYAN SCHILLING RN on 10/03/17 MARY Observed: 10/03/2017 Status: COMPLETED Source: [place] 9:00 AM [facility] REPOSITORY Office Visit (WOOB) MELVINA LUCIO ([id number]) 1985 F Date Time Provider Department 10/03/17 9:00 AM JUSTIN ALEMAN During your visit today, we recorded the following information about you: Blood pressure Weight Last Period 130/74 100.2 kg 08/28/17 Justin Aleman MD 10/03/2017 9:32 AM Signed Melvina Lucio is a 32 year old female who presents for vaginal spotting HPI: Patient presents with spotting in early . She noticed spotting with wiping last week. The spotting was mostly brown. Patient noticed spotting 1 time with wiping that was in her mucous. She reports mild cramps but denies other pain. Patient thinks she's about 5 weeks along. PAST MEDICAL HISTORY Diagnosis Date - Abnormal Pap smear of cervix - goiter - Miscarriage 2015 - Miscarriage 2016 - Sleep apnea PAST SURGICAL HISTORY Procedure Laterality Date - IUD INSERTION ([facility] DEPT)_*FL 04/11/07 Mirena, removed - PAST SURGICAL HISTORY OF IANDamp;D OF CYST ON BACK FAMILY HISTORY Problem Relation Age of Onset - Hypertension Mother - Stroke Maternal Grandmother - Aneurysm Maternal Grandmother brain - Hypertension Maternal Grandmother - Hypertension Maternal Grandfather - Diabetes Maternal Grandfather - Asthma Brother Social History Marital status: Spouse name: Kirk Years of education: 12 Number of children: 1 Occupational History 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 [address] [place]* Social History Main Topics Smoking status: Current Every Day Smoker Packs/day: 0.50 Years: 10.00 Types: Cigarettes Smokeless status: Never Used Alcohol use: No Drug use: No Sexual activity: Yes Partners with: Male Social History Narrative Merged History Encounter Single, 1 child Weston, age 6 in 2014 Getting 5-15 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 No current facility-administered medications for this visit. Allergies As of Date: 10/03/2017 (No Known Allergies) Fully Assessed 09/29/2017 REVIEW OF SYSTEMS Abdomen: No bloating, early satiety, indigestion, or increased flatulence. No abdominal pain, nausea, vomiting, diarrhea, or constipation. Bladder: No dysuria, gross hematuria, urinary frequency, urinary urgency, or incontinence. Breast: No breast lumps, nipple d/c, overlying skin changes, redness or skin retraction. Expanded ROS: N/A Allergies and current medication updated:Yes EXAM: There were no vitals taken for this visit. GENERAL: pleasant, female in no apparent distress CHEST: Normal inspiratory effort ABDOMEN: soft, non-tender and no masses PELVIC: external genitalia normal, no vulvar lesions, normal appearing perineal body and perianal region NEURO: alert and oriented x3,exam grossly non-focal EXTREMITIES: normal ASSESSMENT AND PLAN: 32yo female with threatened AB at 5 weeks HCG quants reviewed TVUS shows IUP - GS with yolk sac and small pole (unable to measure)- fca present Proceed with PNOB today F/u for NOB in 2 weeks or PRN Justin Aleman MD Referring Provider: SELF [200] Allergies As of Date: 10/03/2017 (No Known Allergies) Date Reviewed: 10/03/2017 Reviewed by: Justin Aleman - Fully Assessed Reason for Visit: Early OB Spotting [Other] Primary Visit Diagnosis:Threatened [O20.0] Prescriptions as of 10/03/2017 Sig: ORAL Take by mouth. Problem List As Of Date 10/03/2017 Noted Resolved SUPERVIS NORMAL 1ST PREG [Z34.00] INVALID FOR*06/16/2007 SUPRF HIGH RISK NEC [O09.899] INVALID FOR*06/16/2007 PAP SMEAR OF CERVIX W ASCUS [R87.610] INVALID FOR*02/17/2008 CERVICAL HPV DNA POSITIVE [R87.810] INVALID FOR*02/17/2008 ABSCESS GLUTEAL [L02.31, L03.317] INVALID FOR*06/18/2012 Multinodular goiter [E04.2] INVALID FOR* Genital warts [A63.0] INVALID FOR* Tobacco use during [O99.330] INVALID FOR*01/26/2016 More... Patient requested diagnostic testing [Z01.89] INVALID FOR*01/26/2016 More... Threatened [O20.0] INVALID FOR* History of miscarriage [Z87.59] INVALID FOR* More... Tobacco use in [O99.330] INVALID FOR* More... Patient requested diagnostic testing [Z01.89] INVALID FOR* More... Encounter Status:Closed by JUSTIN ALEMAN MD on 10/03/17 PROGRESS Observed: 10/03/2017 Status: COMPLETED Source: [place] 8:50 AM [facility] REPOSITORY HNO ID: [id number] Author: Justin Aleman Service: (none) Author Type: Physician Type: Progress Notes Filed: 10/03/2017 9:32 AM Note Text: Melvina Lucio is a 32 year old female who presents for vaginal spotting HPI: Patient presents with spotting in early . She noticed spotting with wiping last week. The spotting was mostly brown. Patient noticed spotting 1 time with wiping that was in her mucous. She reports mild cramps but denies other pain. Patient thinks she's about 5 weeks along. 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 DEPT)_*FL 04/11/07 Mirena, removed - PAST SURGICAL HISTORY OF IANDD OF CYST ON BACK FAMILY HISTORY Problem Relation Age of Onset - Hypertension Mother - Stroke Maternal Grandmother - Aneurysm Maternal Grandmother brain - Hypertension Maternal Grandmother - Hypertension Maternal Grandfather - Diabetes Maternal Grandfather - Asthma Brother Social History Marital status: Spouse name: Kirk Years of education: 12 Number of children: 1 Occupational History 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 [employer]* [address] [place]* Social History Main Topics Smoking status: Current Every Day Smoker Packs/day: 0.50 Years: 10.00 Types: Cigarettes Smokeless status: Never Used Alcohol use: No Drug use: No Sexual activity: Yes Partners with: Male Social History Narrative Merged History Encounter Single, 1 child Weston, age 6 in 2014 Getting 5-15 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 No current facility-administered medications for this visit. Allergies As of Date: 10/03/2017 (No Known Allergies) Fully Assessed 09/29/2017 REVIEW OF SYSTEMS Abdomen: No bloating, early satiety, indigestion, or increased flatulence. No abdominal pain, nausea, vomiting, diarrhea, or constipation. Bladder: No dysuria, gross hematuria, urinary frequency, urinary urgency, or incontinence. Breast: No breast lumps, nipple d/c, overlying skin changes, redness or skin retraction. Expanded ROS: N/A Allergies and current medication updated:Yes EXAM: There were no vitals taken for this visit. GENERAL: pleasant, female in no apparent distress CHEST: Normal inspiratory effort ABDOMEN: soft, non-tender and no masses PELVIC: external genitalia normal, no vulvar lesions, normal appearing perineal body and perianal region NEURO: alert and oriented x3,exam grossly non-focal EXTREMITIES: normal ASSESSMENT AND PLAN: 32yo female with threatened AB at 5 weeks HCG quants reviewed TVUS shows IUP - GS with yolk sac and small pole (unable to measure)- fca present Proceed with PNOB today F/u for NOB in 2 weeks or PRN Justin Aleman MD HCG, QUANTITATIVE BL Collected: 10/02/2017 Status: F Source: [place] 4:46 PM [facility] REPOSITORY TYPE CODE TESTS RESULT OUT OF REFERENCE UNITS RANGE LAB HCGQT <5.0 mU/mL [place], [place] [address]952.0 Result Comment: QUANTITATIVE HCG NORMAL RANGES Weeks of Gestation (Weeks Since LMP) 3 Weeks (5.8-71.2 mIU/mL) 4 Weeks (9.5-750 mIU/mL) 5 Weeks (217-7138 mIU/mL) 6 Weeks (158-73095 mIU/mL) 7 Weeks (3697-041182 mIU/mL) 8 Weeks (16772-813206 mIU/mL) 9 Weeks (90385-293497 mIU/mL) 10 Weeks (75958-960351 mIU/mL) 12 Weeks (06141-609370 mIU/mL) Referenced to 4th IS of [facility] Performed By: #### HCGQT #### [facility] [address] [place], [place] [address] HCG, QUANTITATIVE BL Collected: 09/30/2017 Status: F Source: [place] 4:46 PM [facility] REPOSITORY TYPE CODE TESTS RESULT OUT OF REFERENCE UNITS RANGE LAB HCGQT <5.0 mU/mL [place] [address]12.0 Result Comment: QUANTITATIVE HCG NORMAL RANGES Weeks of Gestation (Weeks Since LMP) 3 Weeks (5.8-71.2 mIU/mL) 4 Weeks (9.5-750 mIU/mL) 5 Weeks (217-7138 mIU/mL) 6 Weeks (158-86255 mIU/mL) 7 Weeks (3697-896400 mIU/mL) 8 Weeks (18917-544731 mIU/mL) 9 Weeks (79028-698726 mIU/mL) 10 Weeks (53057-876304 mIU/mL) 12 Weeks (33699-588756 mIU/mL) Referenced to 4th [facility] of [facility] Performed By: #### HCGQT #### [facility] [address] [place], [place] [address] GLUCOSE, FASTING Collected: 06/11/2017 Status: F Source: [place] 8:20 AM [facility] REPOSITORY TYPE CODE TESTS RESULT OUT OF REFERENCE UNITS RANGE LAB GLF 74-99 mg/dL High Glucose, 113 Fasting Result Comment: [place] Diabetes Association guidelines state that a diabetes mellitus diagnosis is preliminarily made when the fasting plasma glucose meets or exceeds 126 mg/dL. In the absence of unequivocal hyperglycemia, results should be confirmed with repeat testing. Patients are at increased risk for diabetes mellitus (prediabetes) when the fasting glucose is 100 to 125 mg/dL. Performed By: #### GLF #### [facility] [address] [place], [place] [address] TSH Collected: 06/11/2017 Status: F Source: [place] 8:20 AM [facility] REPOSITORY TYPE CODE TESTS RESULT OUT OF RANGE REFERENCE UNITS LAB TSH 0.400-5.500 uU/mL TSH 0.999 Result Comment: If the patient is , TSH reference range varies by gestational period: First Trimester 0.100-2.500 uU/mL Second Trimester 0.200-3.000 uU/mL Third Trimester 0.300-3.000 uU/mL References: 1. Epps, Grant M, Gordy EK, et al. Management of Thyroid Dysfunction during and : An Endocrine Society Clinical Practice Guideline. J Clin Endocrinol Metab, 2012:97:3977-4814. 2. Kyle IVY. Overview of thyroid disease in . UpToDate. 2016. Accessed on November 25, 2015. Performed By: #### TSH, HBA1C #### [facility] [address] [place], [place] [address] HEMOGLOBIN A1C Collected: 06/11/2017 Status: F Source: [place] 8:20 AM [facility] REPOSITORY TYPE CODE TESTS RESULT OUT OF REFERENCE UNITS RANGE LAB HGBA1C 4.3-5.6 % Hemoglobin A1c 5.4 LAB HBA0 mg/dL Est. Average Glucose 108 Result Comment: eAG: (Estimated average glucose) is a calculated value from HgbA1c and is school admissions representative of the average blood glucose level in the last 2-3 month period. Performed By: #### TSH, HBA1C #### [facility] [address] [place], [place] [address] LUPUS ANTICOAG PANEL Collected: 06/11/2017 Status: F Source: [place] 8:20 AM [facility] REPOSITORY TYPE CODE TESTS RESULT OUT OF RANGE REFERENCE UNITS LAB PSEC 9.7-13.0 sec PT Sec 10.4 LAB INR 0.9-1.3 PT INR 1.0 Result Comment: Vitamin K Antagonist (VKA) Therapeutic Range: INR 2 to 3 (Target INR of 2.5) Note: For patients treated with VKA drugs, such as warfarin, the [place] College [employer] Chest Physicians 2012 Guideline recommends a therapeutic INR range of 2 to 3 (target INR of 2.5). This recommendation includes high-risk patients with antiphospholipid syndrome with previous arterial or venous thromboembolism, current-generation mechanical or bioprosthetic aortic heart valve replacement. Note: Patients with mechanical aortic valve replacement and additional risk factors for thromboembolic events (atrial fibrillation, previous thromboembolism, LV dysfunction, hypercoagulable conditions) or an older generation mechanical AVR (i.e., ball in-Cage) or any mechanical MVR should have a INR therapeutic range of 2.5 to 3.5 (target INR of 3). Linda GH, et al. Chest 2012, 141:7S-47S Gracia FRIAS et al. [facility] 2017, 70: 252-289 LAB APTT 23.0-32.4 sec APTT 28.8 Result Comment: Unfractionated Heparin Therapeutic Ranges: Standard Heparin Nomogram: 53 to 78 seconds (anti-Xa level of 0.3 to 0.7 U/ml) Low Dose/ACS Nomogram: 49 to 67 seconds (anti-Xa level of 0.2 to 0.5 U/ml) Stroke Treatment Nomogram: 49 to 67 seconds (anti-Xa level of 0.2 to 0.5 U/ml) Note: The APTT therapeutic range has been determined for the current lot of laboratory APTT reagent in use throughout the [facility]. LAB PLTNEU Negative PNP Negative LAB DRVSCN 32.7-46.7 sec DRVVT Screen 37.6 LAB DRVRAT <1.21 DRVVT Confirm Ratio 1.06 LAB DRVMIX 32.7-46.7 sec DRVVT 1:1 Mix 39.7 LAB HEXSCN 48.9-70.2 sec Hex Phase Screen 56.9 LAB HEXMIX 45.1-64.1 sec Hex Phase Confirm 58.0 LAB HEXDEL <9.0 delta sec Hex Phase Delta 0.0 LAB APTTSC 24.4-33.4 sec APTT Screen 32.5 LAB IMPTT <33.5 sec Immed. PTT 1:1 Mix 29.4 LAB 1HRPTT <37.3 sec Incub. PTT 1:1 Mix 30.2 LAB TT <18.6 sec Thrombin Time 17.6 LAB LUPINT Interpretation (NOTE) Result Comment: Performing Pathologist: Annalee Hawk M.D., Ph.D. Interpretation: Normal - see comment below. Laboratory testing was performed to evaluate the presence of a lupus anticoagulant and anti-phospholipid antibodies. The PT and APTT values are both within the normal range. A normal thrombin time (TT) makes a heparin and/or direct thrombin inhibitor effect unlikely. LUPUS ANTICOAGULANT STUDIES: There is no evidence for a lupus anticoagulant or other coagulation inhibitor at this time. ANTIPHOSPHOLIPID ANTIBODY STUDIES: The IgG, IgM and IgA anticardiolipin antibody titers were all negative. Both the IgG and IgM Beta-2 Glycoprotein I antibody titers were negative. The criteria for the diagnosis of a Lupus Anticoagulant, as detailed by the Subcommittee on Lupus Anticoagulants and Anti-Phospholipid Antibodies of the Scientific and Standardization Committee of the International Society on Thrombosis and Haemostasis (ISTH), are the following: (1) A prolonged phospholipid-dependent clotting test (screening test); (2) Evidence for an inhibitor (1:1 mix of patient:normal plasma); (3) Evidence that the inhibitor is phospholipid dependent and (4) Exclusion of specific inhibitors (ie, fVIII inhibitors, direct thrombin inhibitors, or heparin). Thromb. Haemost. 74:1185 (1995). LAB CARDG 0-9 GPL IgG Cardiolipin Ab. <9 Result Comment: <10 GPL Negative 10-40 GPL Equivocal >40 GPL Positive The following results were obtained with the Inova QUANTA Lite LEXY IgG III RODGER. Cardiolipin IgG values obtained with the different manufacturers' assay methods may not be used interchangeably. The mag nitude of the reported IgG levels cannot be correlated to an endpoint titer. LAB CARDM 0-11 MPL IgM Cardiolipin Ab. <9 Result Comment: <12 MPL Negative 12-40 MPL Equivocal >40 MPL Positive The following results were obtained with the Inova QUANTA Lite LEXY IgM III RODGER. Cardiolipin IgM values obtained with different manufacturers' assay methods may not be used interchangeably. The magnitu de of the reported IgM levels cannot be correlated to an endpoint titer. LAB CARDA 0-11 APL IgA Cardiolipin Ab. <9 Result Comment: <12 APL Negative 12-40 APL Equivocal >40 APL Positive The following results were obtained with an Inova QUANTA Lite LEXY IgA III RODGER. Cardiolipin IgA values obtained with different manufacturers' assay methods may not be used interchangeably. The magnitud e of the reported IgA levels cannot be correclated to an endpoint titer. LAB B2GPG <20 SGU Beta2 Glycoprot IgG <9 Result Comment: < 20 SGU Negative 20-80 SGU Low Positive > 80 SGU High Positive These results were obtained with the Inova QUANTA Lite B2 GPI IgG RODGER. B2 GPI IgG values obtained with different manufacturers' assay methods may not be used interchangeably. The magnitude of the repo rted IgG levels cannot be correlated to an endpoint titer. LAB B2GPM <20 SMU Beta2 Glycoprot IgM <9 Result Comment: < 20 SMU Negative 20-80 SMU Low Positive > 80 SMU High Positive These results were obtained with the Inova QUANTA Lite B2 GPI IgM RODGER. B2 GPI IgM values obtained with different manufacturers' assay methods may not be used interchangeably. The magnitude of the repo rted IgM levels cannot be correlated to an endpoint titer. Performed By: #### LUPUSP #### [facility] [address] [place], [place] [address] PROGRESS Observed: 06/07/2017 Status: COMPLETED Source: [place] 9:00 AM [facility] REPOSITORY HNO ID: [id number] Author: Bebe Cordova Service: (none) Author Type: Nurse Practitioner Type: Progress Notes Filed: 06/07/2017 9:46 AM Note Text: Melvina Lucio is a 31 year old who presents for her annual gynecologic exam without complaints. Menses: cycles every 28-30 days and 6-7 days of flow. 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 04/11/07 Mirena, removed - PAST SURGICAL HISTORY OF IANDD OF CYST ON BACK FAMILY HISTORY Problem Relation Age of Onset - Hypertension Mother - Stroke Maternal Grandmother - Aneurysm Maternal Grandmother brain - Hypertension Maternal Grandmother - Hypertension Maternal Grandfather - Diabetes Maternal Grandfather - Asthma Brother SOCIAL HISTORY Social History Substance Use Topics - Smoking status: Current Every Day Smoker Packs/day: 0.50 Years: 10.00 Types: Cigarettes - Smokeless tobacco: Never Used - Alcohol use No REVIEW OF SYSTEMS Abdomen: No abdominal pain, nausea, vomiting, diarrhea, or constipation. No bloating, early satiety, indigestion, or increased flatulence. Bladder: No dysuria, gross hematuria, urinary frequency, urinary urgency, or incontinence. Breast: No breast lumps, nipple d/c, overlying skin changes, redness or skin retraction. Allergies and current medication updated:Yes EXAM: Ht 5' 7.717 (1.72m) Wt 213 lb (96.6kg) LMP 05/19/2017 BMI 32.66 kg/(m2). GENERAL: pleasant, mixed female in no apparent distress HEENT: Normocephalic, atraumatic, mucus membranes moist and no lesions NECK: Supple, full range of motion, no adenopathy and thyroid normal DERMATOLOGY: Normal, without lesions, non-icteric and non-hirsute BREAST: soft, non-tender, symmetric, no dominant mass, normal nipple-areolar complex, no lymphadenopathy and no nipple discharge CHEST: Normal inspiratory effort ABDOMEN: soft, non-tender and no masses PELVIC: external genitalia normal, normal Bartholin's glands, urethra, Crescent Bar's glands, no vulvar lesions, no cervical lesions, good vaginal support, physiologic discharge present, normal appearing perineal body and perianal region, well estrogenized BIMANUAL: uterus normal size, shape and consistency, no adnexal masses, non-tender and no cervical motion tenderness RECTOVAGINAL: deferred. NEURO: alert and oriented x3,exam grossly non-focal EXTREMITIES: normal ASSESSMENT/PLAN: 1) Health maintenance: Pap/HPV up to date. Mammogram starting age 40. Nutrition, exercise and routine health maintenance exams reviewed. Calcium/Vitamin D supplementation information provided. Smoking cessation: Patient encouraged to avoid smoking. 2) Contraception: none. Contraceptive options reviewed and information provided. 3) STD screening: Declined STD check. 4) Follow up one year or sooner as needed Pt had 2 miscarriage in 2016 and is considered about getting again and miscarrying. Consulted with GIAN and suggested a Lupus panel, TSH, HbA1c, FBS, antimullerian (AMH), day 3 FSH, and sonohysterography. Pt agree to lupus panel, TSH, HbA1c, and FBS at this time. She will speak with her about other testing. BEBE CORDOVA CNP CNOV Observed: 06/07/2017 Status: COMPLETED Source: [place] 8:45 AM [facility] REPOSITORY Office Visit (WOOB) MELVINA LUCIO ([id number]) 1985 F Date Time Provider Department 06/07/17 8:45 AM BEBE CORDOVA) WOOB During your visit today, we recorded the following information about you: Blood pressure Weight Height Last Period 118/78 96.6 kg 1.72 m 05/19/17 BEBE CORDOVA CNP 06/07/2017 9:46 AM Signed Melvina Lucio is a 31 year old who presents for her annual gynecologic exam without complaints. Menses: cycles every 28-30 days and 6-7 days of flow. 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 04/11/07 Mirena, removed - PAST SURGICAL HISTORY OF IANDamp;D OF CYST ON BACK FAMILY HISTORY Problem Relation Age of Onset - Hypertension Mother - Stroke Maternal Grandmother - Aneurysm Maternal Grandmother brain - Hypertension Maternal Grandmother - Hypertension Maternal Grandfather - Diabetes Maternal Grandfather - Asthma Brother SOCIAL HISTORY Social History Substance Use Topics - Smoking status: Current Every Day Smoker Packs/day: 0.50 Years: 10.00 Types: Cigarettes - Smokeless tobacco: Never Used - Alcohol use No REVIEW OF SYSTEMS Abdomen: No abdominal pain, nausea, vomiting, diarrhea, or constipation. No bloating, early satiety, indigestion, or increased flatulence. Bladder: No dysuria, gross hematuria, urinary frequency, urinary urgency, or incontinence. Breast: No breast lumps, nipple d/c, overlying skin changes, redness or skin retraction. Allergies and current medication updated:Yes EXAM: Ht 5' 7.717ANDquot; (1.72m) Wt 213 lb (96.6kg) LMP 05/19/2017 BMI 32.66 kg/(m2). GENERAL: pleasant, mixed female in no apparent distress HEENT: Normocephalic, atraumatic, mucus membranes moist and no lesions NECK: Supple, full range of motion, no adenopathy and thyroid normal DERMATOLOGY: Normal, without lesions, non-icteric and non-hirsute BREAST: soft, non-tender, symmetric, no dominant mass, normal nipple-areolar complex, no lymphadenopathy and no nipple discharge CHEST: Normal inspiratory effort ABDOMEN: soft, non-tender and no masses PELVIC: external genitalia normal, normal Bartholin's glands, urethra, Crescent Bar's glands, no vulvar lesions, no cervical lesions, good vaginal support, physiologic discharge present, normal appearing perineal body and perianal region, well estrogenized BIMANUAL: uterus normal size, shape and consistency, no adnexal masses, non-tender and no cervical motion tenderness RECTOVAGINAL: deferred. NEURO: alert and oriented x3,exam grossly non-focal EXTREMITIES: normal ASSESSMENT/PLAN: 1) Health maintenance: Pap/HPV up to date. Mammogram starting age 40. Nutrition, exercise and routine health maintenance exams reviewed. Calcium/Vitamin D supplementation information provided. Smoking cessation: Patient encouraged to avoid smoking. 2) Contraception: none. Contraceptive options reviewed and information provided. 3) STD screening: Declined STD check. 4) Follow up one year or sooner as needed Pt had 2 miscarriage in 2016 and is considered about getting again and miscarrying. Consulted with GIAN and suggested a Lupus panel, TSH, HbA1c, FBS, antimullerian (AMH), day 3 FSH, and sonohysterography. Pt agree to lupus panel, TSH, HbA1c, and FBS at this time. She will speak with her about other testing. BEBE CORDOVA CNP Referring Provider: SELF [200] Allergies As of Date: 06/07/2017 (No Known Allergies) Date Reviewed: 06/07/2017 Reviewed by: Bebe Cordova - Fully Assessed Reason for Visit: Yearly Exam [187] Primary Visit Diagnosis:Encounter for gynecological examination (general) (routine) without abnormal findings [Z01.419] Other Visit Diagnosis:History of recurrent , not currently [N96] Order(s):LUPUS ANTICOAG PL [SQLUPUSP] Order #: [id number] FUTURE TSH BLD [SQTSH] Order #: [id number] FUTURE HGB A1C [NORRU0Z] Order #: [id number] FUTURE GLUCOSE FASTING BLD [SQGLF] Order #: [id number] FUTURE Medication notes this encounter ALBUTEROL SULFATE HFA 90 MCG/ACTUATION AEROSOL INHALER >> Ade Cassidy Ma 06/07/2017 8:58 AM >> TIM ADE PATTERSON MA SatJun 07, 2017 8:58 AM Completed Problem List As Of Date 06/07/2017 Noted Resolved SUPERVIS NORMAL 1ST PREG [Z34.00] INVALID FOR*06/16/2007 SUPRF HIGH RISK NEC [O09.899] INVALID FOR*06/16/2007 PAP SMEAR OF CERVIX W ASCUS [R87.610] INVALID FOR*02/17/2008 CERVICAL HPV DNA POSITIVE [R87.810] INVALID FOR*02/17/2008 ABSCESS GLUTEAL [L02.31, L03.317] INVALID FOR*06/18/2012 Multinodular goiter [E04.2] INVALID FOR* Genital warts [A63.0] INVALID FOR* Tobacco use during [O99.330] INVALID FOR*01/26/2016 More... Patient requested diagnostic testing [Z01.89] INVALID FOR*01/26/2016 More... Threatened [O20.0] INVALID FOR* History of miscarriage [Z87.59] INVALID FOR* More... Tobacco use in [O99.330] INVALID FOR* More... Patient requested diagnostic testing [Z01.89] INVALID FOR* More... Medications Discontinued During This Encounter albuterol HFA (PROVENTIL HFA, VENTOL* 1 In* 2 05/27/2015 06/07/2017 Class: Print RX Route: INHALATION Sig: Inhale 2 Puffs as instructed every 6 hours as needed for Wheezing/Shortness of Breath (persistent coughing). Disc: Reason for discontinue is not on file. codeine-guaiFENesin (ROBITUSSIN AC) * 100 * 0 05/27/2015 06/07/2017 Class: Print RX Route: ORAL Sig: Take 5-10 mL by mouth three times daily as needed for Cough or Cold/Allergy Symptoms. May cause drowsiness. Disc: Reason for discontinue is not on file. predniSONE (DELTASONE) 20 mg tablet 10 t* 0 05/27/2015 06/07/2017 Class: Print RX Sig: Take 2 tablets by mouth daily for 5 days. Disc: Reason for discontinue is not on file. Vvtabjbn-Iy-Uzy-Fe-FA tab 06/07/2017 Class: Historical Med Route: ORAL Sig: Take 1 tablet by mouth. Disc: Reason for discontinue is not on file. Disposition: Return in 1 year (on 06/07/2018) for Annual Exam. Follow-up and Disposition History Recorded Encounter Status:Closed by BEBE CORDOVA on 06/07/17 ALLERGIES ALLERGIES DATE TYPE / CODE NAME / CODE REACTION SEVERITY SOURCE 05/24/2018 Drug No Known Unknown [facility] Allergy/416 Allergies/[id number] Hospital [id number](SNOM 0388(RXNORM) Repository ED CT) Drug NO KNOWN [facility] Class/40319 ALLERGIES Main [place] 1003(SNOMED Repository CT) ENCOUNTERS ENCOUNTERS ADMIT/DISCHARGE ACCOUNT ADMITTING ENCOUNTER LOCATION SOURCE NUMBER CLASS 05/24/2018/05/27/20 [id number] [facility] Inpatient [place] [address] osh, Cara Encounter [facility] ing:WPRoom: Repository [id number]: 1 05/24/2018 [id number] [facility] ing:LABSPEC Repository 05/23/2018/05/23/20 [id number] Ambulatory [address] ing:WPOUTRoom Repository : [id number] 05/23/2018/05/27/20 [id number] Ambulatory [address] Repository 05/19/2018/05/20/20 [id number] Ambulatory [address] Repository 05/15/2018/05/16/20 [id number] Ambulatory [address] Repository 05/12/2018/05/13/20 [id number] Ambulatory [address] Repository 05/07/2018/05/09/20 [id number] Ambulatory [address] Repository 05/06/2018/05/06/[id number] ing:WPOUTRoom Repository : [id number] 04/29/2018/04/30/20 [id number] Ambulatory [address] Repository 04/16/2018/04/18/20 [id number] Ambulatory [address] Repository 04/02/2018/04/03/20 [id number] Ambulatory [address] Repository 03/19/2018/03/20/20 [id number] Ambulatory [facility] [place] Repository 03/19/2018/03/21/20 [id number] Ambulatory [facility] [place] Repository 03/05/2018/03/05/20 [id number] Ambulatory [facility] [place] Repository 03/05/2018/03/06/20 [id number] Ambulatory [facility] [place] Repository 02/12/2018/02/15/20 [id number] Ambulatory [facility] [place] Repository 01/13/2018/01/15/20 [id number] Ambulatory [facility] [place] Repository 01/13/2018/01/15/20 [id number] Ambulatory [facility] [place] Repository 12/30/2017/01/01/20 [id number] Ambulatory [facility] [place] Repository 12/19/2017 [id number] Ambulatory [facility] ing:SL Repository 12/17/2017/12/18/19 [id number] Ambulatory [facility] [place] Repository 12/17/2017/12/19/19 [id number] Ambulatory [facility] [place] Repository 11/18/2017 [id number] Ambulatory [facility] [place] Repository 11/18/2017/11/21/19 [id number] Ambulatory [facility] [place] Repository 11/18/2017/11/21/19 [id number] Ambulatory [facility] [place] Repository 11/01/2017/11/13/19 [id number] Ambulatory [facility] [place] Repository 10/30/2017/11/02/19 [id number] Ambulatory [facility] [place] Repository 10/18/2017/10/19/19 [id number] Ambulatory [facility] [place] Repository 10/18/2017/10/23/19 [id number] Ambulatory [facility] [place] Repository 10/03/2017/10/08/19 [id number] Ambulatory [facility] [place] Repository 10/03/2017/10/08/19 [id number] Ambulatory [facility] [place] Repository 10/02/2017 [id number] Ambulatory [facility] [place] Repository 09/30/2017 [id number] Ambulatory [facility] [place] Repository 06/11/2017/06/11/19 [id number] Ambulatory [facility] [place] Repository 06/07/2017/09/07/[id number] Repository PAYERS PAYERS ENCOUNTER GUARANTOR PAYER SUBSCRIBER SOURCE 05/24/2018 MELVINA A [id number] Primary MELVINA A Sherin [place] Insurance:MEDICAL REEDDOB: [facility] [id number] Hospital [address]Ktv: (330) Number: Repository [phone] () [id number] Date:[id number] [address] [address]AZ: 05/24/2018 Secondary NOT GIVENUNK [place] Insurance:SELF PAY [facility] Number: Effective Repository Date:2018-05-24 05/24/2018 MELVINA A [id number] Primary MELVINA A Sherin [place] Insurance:MEDICAL REEDDOB: [facility] [id number] Hospital [id number]: (330) Number: Repository [phone] () [id number] Date:[id number] [address]PR: 05/24/2018 Secondary NOT GIVENUNK Sherin Insurance:SELF PAY [facility] Number: Effective Repository Date:2018-05-24 05/23/2018 MELVINA A [id number] Primary MELVINA A [place] Insurance:MEDICAL REEDDOB: [facility] [id number] Hospital [address]Pya: (330) Number: Repository [phone] () [id number] Date:[id number] [address]RD: 05/23/2018 Secondary NOT GIVENUNK [place] Insurance:SELF PAY [facility] Number: Effective Repository Date:2018-05-23 05/06/2018 MELVINA A [id number] Primary Insurance:[facility] MELVINA A [place] BULERS REEDDOB: [facility] Number: [id number] Hospital [id number]: [phone] [id number] Repository [phone] () Date:[id number] [address], [place] [address]OS: 05/06/2018 Secondary MELVINA A [place] Insurance:MEDICAL REEDDOB: [facility] [id number] Hospital Number: Repository [id number] [id number] [id number]: 05/06/2018 Tertiary NOT GIVENUNK [place] Insurance:SELF PAY [facility] Number: Effective Repository Date:2018-05-06 12/19/2017 MELVINA A [id number] Primary MELVINA A [place] Insurance:MEDICAL REEDDOB: [facility] [id number] Hospital [address]Rya: 330) Number: Repository [phone] () [id number] Date:[id number] [address]MQ: 12/19/2017 Secondary NOT GIVENUNK [place] Insurance:SELF PAY [facility] Number: Effective Repository Date:2017-11-21
--- OUTSIDE RECORDS SUMMARY | 2018-06-18 01:49 | XMS RPT_ITS ---
:1985 Author Organization OHIP Care Team Providers Name Role Phone Joel Cruz Attending Unavailable Talampas, Joel Primary Care Unavailable ABIGAIL HARDY Consulting Unavailable Meredith Hardy TRUST VAULT CLERK-C Consulting Unavailable Talampas, Joel Primary Care Unavailable Neyhart-Aldridge, Cara Attending Unavailable Neyhart-Aldridge, Cara Referring Unavailable Neyhart-Aldridge, Cara Attending Unavailable Neyhart-Aldridge, Cara Referring Unavailable Talampas, Joel Primary Care Unavailable Neyhart-Aldridge, Cara Attending Unavailable Talampas, Joel Primary Care Unavailable Neyhart-Aldridge, Cara Referring Unavailable Neyhart-Aldridge, Cara Admitting Unavailable Neyhart-Aldridge, Cara Attending Unavailable Talampas, Joel Primary Care Unavailable BEBE CORDOVA (CLEANERS) Attending Unavailable BEBE CORDOVA (CLEANERS) Referring Unavailable NEYHART ALDRIDGE, CARA Referring Unavailable NEYHART ALDRIDGE, CARA Referring Unavailable JUSTIN ALEMAN Attending Unavailable NEYHART ALDRIDGE, CARA Attending Unavailable NEYHART ALDRIDGE, CARA Referring Unavailable BEBE CORDOVA (CLEANERS) Attending Unavailable TALAMPAS, JOEL D Attending Unavailable JUSTIN ALEMAN Referring Unavailable NEYHART ALDRIDGE, CARA Attending Unavailable NEYHART ALDRIDGE, CARA Referring Unavailable TRUMAN ARMAS Attending Unavailable NEYHART ALDRIDGE, CARA Referring Unavailable NEYHART ALDRIDGE, CARA Referring Unavailable NEYHART ALDRIDGE, CARA Attending Unavailable NEYHART ALDRIDGE, CARA Referring Unavailable MEREDITH HARDY (AXMINSTER RUG SETTER) Attending Unavailable KOFI ROMERO Attending Unavailable NEYHART ALDRIDGE, CARA Referring Unavailable NEYHART ALDRIDGE, CARA Attending Unavailable MARA ROUSE (CNM) Attending Unavailable NEYHART ALDRIDGE, CARA Attending Unavailable NEYHART ALDRIDGE, CARA Referring Unavailable MARA ROUSE (CNM) Attending Unavailable NEYHART ALDRIDGE, CARA Referring Unavailable KOFI ROMERO Attending Unavailable NEYHART ALDRIDGE, CARA Referring Unavailable NEYHART ALDRIDGE, CARA Attending Unavailable NEYLINDYT LUIS CARLOS, CARA Referring Unavailable NEYLINDYT LUIS CARLOS, CARA Attending Unavailable NEDENNYS ALDRIDGE, CARA Attending Unavailable MARA ROUSE (CNM) Attending Unavailable NEYLINDYT ALDRIDGE, CARA Attending Unavailable KOFI ROMERO Attending Unavailable MARA ROUSE (CNM) Attending Unavailable NEYHART ALDRIDGE, CARA Attending Unavailable NEYHART ALDRIDGE, CARA Referring Unavailable PROBLEMS PROBLEMS DATE TYPE CONDITION / CODE ATTENDING STATUS SOURCE 03/05/2018 Active Encounter for NA Active [facility] supervision of [place] other normal Repository , second trimester / Z34.82(ICD-10) 03/05/2018 Active 27 weeks gestation NA Active [facility] of / [place] Z3A.27(ICD-10) Repository 11/18/2017 Active Encounter for Active [facility] [place] screening for Repository nuchal translucency / Z36.82(ICD-10) 10/18/2017 Active Encounter for NA Active [facility] supervision of [facility] other normal Repository , first trimester / Z34.81(ICD-10) 09/30/2017 Active Hemorrhage in NA Active [facility] early , [place] unspecified / Repository O20.9(ICD-10) 06/11/2017 Active Recurrent NA Active [facility] loss / [place] N96(ICD-10) Repository 06/07/2017 Active Unknown / TASHA, BEBE Active [facility] UNK(Unknown) (CLEANERS) [place] Repository PROCEDURES PROCEDURES No Procedure Records FoundRESULTS RESULTS DISCHARGE INSTRUCTION Observed: 05/27/2018 Status: F Source: [place] 8:36 AM [facility] REPOSITORY [facility] Medical Records Department [address] [place] [address] Instructions for Home/Discharge Instructions 05/27/18 0836 MR#: [id number] Acct: [id number] Name: KHADIJAHMELVINA A Rep #: [id number] : 1985 32 From: Justin Aleman PCP: Joel Cruz MD Status: ADM IN Discharge Diet: No Restrictions [...] 05/25/2018 Status: F Source: [place] 10:58 AM [facility] REPOSITORY [facility] Medical Records Department [address] [place] [address] Operative Report 05/25/18 1056 MR#: [id number] Acct: [id number] Name: MELVINA LUCIO Rep #: [id number] : 1985 32 From: Cara Aldridge MD PCP: Joel Cruz MD Status: ADM IN Y [id number] Maternal Presentation: Medically Indicated Induction [...] AND PHYSICAL Observed: 05/24/2018 Status: F Source: [place] EXAM 8:22 PM [facility] REPOSITORY [facility] Medical Records Department [address] [place] [address] History and Physical 05/24/18 1847 MR#: [id number] Acct: [id number] Name: MELVINA LUCIO Rep #: [id number] : 1985 32 From: Cara Aldridge MD PCP: Joel Cruz MD Status: ADM IN Y Location: [id number] History Date of Admission: 05/24/18 Final JASMIN: 05/29/18 Final JASMIN Source: US <20 weeks Gestational age: 39 Weeks and 2 Days History of this : This is a 32 year-old, G 5A4098 @ 39.2 wks with preeclampsia without severe [...] GeLabor LenAnesthesiDelivery Provider FOB Date ght [facility] Location Labs: GBS neg, HEPB neg, HIV neg, Syphilis neg, RUB imm, Expected Delivery Method: Spontaneous Vaginal Review of Systems Eyes: Denies: Blurred vision, Double vision HEENT: Denies: Head Aches Gastrointestinal: Denies: Abdominal Pain Physical Exam General: Alert, Oriented x3 Abdomen: Soft, Non Tender, Gravid Neurological: Cranial nerves II-XII grossly intact ORACLE EBS CONSULTANT: Normal external genitalia Estimated gestational size: Appropriate [...] F Source: [place]ER[place] NO DIFF 8:05 PM [facility] REPOSITORY TYPE CODE TESTS RESULT OUT OF [...] MPV 11.3 Performed By: #### L100.0500 #### [facility] [address] [place], [place], [id number] TYPE AND SCREEN Collected: 05/24/2018 Status: F Source: [place] 8:05 PM [facility] REPOSIT[facility] Order Comment: Reason for Type AND Screen/Red Cells: ROUTINE TYPE CODE TESTS RESULT OUT OF RANGE REFERENCE UNITS LAB B10.0800 B Normal BLOOD TYPE GEL POSITIVE LAB B100.4000 Normal Antibody NEGATIVE Screen Performed By: #### B101.7450 #### [facility] [address] [facility] [place], [address] PROTEIN, URINE 24HR Collected: 05/24/2018 Status: F Source: [place] 12:50 PM [facility] REPOS[facility] Order Comment: CALL WITH RESULTS [phone] TYPE CODE TESTS RESULT OUT OF RANGE REFERENCE UNITS LAB L501.1850 24.0 HOURS Normal UR COLLECT 24.0 TIME LAB L501.1875 mL Normal UR TOTAL 2950 VOLUME LAB L501.1900 <11.9 mg/dL High URINE PROTEIN 14.2 LAB L501.1925 <150 MG/24HR mg/24HR High 24hr UR 418.9 PROTEIN Performed By: #### L500.9000, L502.000 #### [facility] [address] [place], [address] 24 HR URINE CREATININE Collected: 05/24/2018 Status: F Source: [place] 12:50 PM [facility] REPOS[facility] Order Comment: CALL WITH RESULTS [phone] TYPE CODE TESTS RESULT OUT OF RANGE REFERENCE UNITS LAB L502.0100 24.0 HOURS Normal UR COLLECT 24.0 TIME LAB L502.0200 L Normal UR TOTAL 3.00 VOLUME LAB L502.0300 NO RANGE EST. mg/dL Normal URINE CREAT 71.30 LAB L502.0400 0.70-1.90 g/24 HR High UR.CREAT/24hr 2.10 Performed By: #### L500.9000, L502.000 #### [facility] [address] [place], [address] PROTEIN+CREATININE Collected: Status: F Source: [place]ER[place] RATIO,URINE 05/23/2018 12:50 PM [facility] REPOSITORY TYPE CODE TESTS RESULT OUT OF RANGE REFERENCE UNITS LAB L501.1200 NO RANGE EST. mg/dL Normal UR CREAT 41.30 LAB L501.1930 <11.9 mg/dL High 13.5 PROTEIN,UR.R AN. LAB L501.1940 0-200 mg/g CRE High PROT:CRE 327 RATIO Performed By: #### L501.0900 #### [facility] [address] [place], [place], [address] CBC-COMPLETE BLOOD CNT Collected: 05/23/2018 Status: F Source: [place] NO DIFF 12:15 PM [facility] REPOSITORY TYPE CODE TESTS RESULT OUT OF [...] MPV 11.8 Performed By: #### L100.0500 #### [facility] [address] [place], [place], [address] PROTHROMBIN TIME W/INR Collected: 05/23/2018 Status: F Source: [place] 12:15 PM [facility] REPOSITORY TYPE CODE TESTS RESULT OUT OF RANGE REFERENCE UNITS LAB L300.4150 11.7-14.9 SECONDS Normal PROTIME 13.0 LAB L300.4200 Normal INR 1.0 Performed By: #### L300.3900, L300.4310, L501.1105, L501.1400, L501.4100, L501.4405 #### [facility] [address] [place], [address] PARTIAL THROMBOPLAST Collected: 05/23/2018 Status: F Source: [place] TIME 12:15 PM [facility] REPOSITORY TYPE CODE TESTS RESULT OUT OF RANGE REFERENCE UNITS LAB L300.4310 24.1-36.2 Seconds Normal PTT 28.6 Performed By: #### L300.3900, L300.4310, L501.1105, L501.1400, L501.4100, L501.4405 #### [facility] [address] [place], [place], [address] SERUM CREATININE AND Collected: 05/23/2018 Status: F Source: [place] GFR 12:15 PM [facility] REPOSITORY TYPE CODE TESTS RESULT OUT OF [...] L300.3900, L300.4310, L501.1105, L501.1400, L501.4100, L501.4405 #### [facility] [address] [place], [place], [address] URIC ACID Collected: 05/23/2018 Status: F Source: [place] 12:15 PM [facility] REPOSITORY TYPE CODE TESTS RESULT OUT OF RANGE REFERENCE UNITS LAB L501.1400 2.6-6.0 mg/dL Normal URIC 3.8 Result Comment: The drugs N-Acetylcysteine and Metamizole may falsely depress this assay. Performed By: #### L300.3900, L300.4310, L501.1105, L501.1400, L501.4100, L501.4405 #### [facility] [address] [place], [place], [address] AST(SGOT) Collected: 05/23/2018 Status: F Source: [place] 12:15 PM [facility] REPOSITORY TYPE CODE TESTS RESULT OUT OF RANGE REFERENCE UNITS LAB L501.4100 15-37 U/L Normal AST 26 Performed By: #### L300.3900, L300.4310, L501.1105, L501.1400, L501.4100, L501.4405 #### [facility] [address] [place], [address] ALANINE AMINOTRANSFERAS Collected: 05/23/2018 Status: F Source: [place]ERIN (SGPT) 12:15 PM [facility] REPOSITORY TYPE CODE TESTS RESULT OUT OF RANGE REFERENCE UNITS LAB L501.4405 13-56 U/L Normal ALT 33 Performed By: #### L300.3900, L300.4310, L501.1105, L501.1400, L501.4100, L501.4405 #### [facility] [address] [place], [place], [address] PROGRESS Observed: 05/15/2018 Status: COMPLETED Source: [place] 4:58 PM [facility] HNO ID: [id number] Author: Kofi Romero Service: (none) Author Type: [...] STREP PCR Collected: 05/07/2018 Status: F Source: [place] 11:41 PM [facility] RE[facility] TYPE CODE TESTS RESULT OUT OF REFERENCE UNITS RANGE LAB GBPCRT Negative for GROUP Group B B STREP PCR Streptococcus by PCR. Performed By: #### GBPCR #### [facility] [address] [place], [place] [address] CBC-COMPLETE BLOOD CNT Collected: 05/06/2018 Status: F Source: [place]ER[place] NO DIFF 11:05 AM [facility] REPOSITORY TYPE CODE TESTS RESULT OUT OF [...] By: #### L100.0500, L300.3900, L300.4310, L300.4700 #### [facility] [address] [place], [place], [address] PROTHROMBIN TIME W/INR Collected: 05/06/2018 Status: F Source: [place] 11:05 AM [facility] REPOSITORY TYPE CODE TESTS RESULT OUT OF RANGE REFERENCE UNITS LAB L300.4150 11.7-14.9 SECONDS Normal PROTIME 13.0 LAB L300.4200 Normal INR 1.0 Performed By: #### L100.0500, L300.3900, L300.4310, L300.4700 #### [facility] [address] [place], [place], [address] PARTIAL THROMBOPLAST Collected: 05/06/2018 Status: F Source: [facility] 11:05 AM [facility] REPOSIT[facility] TYPE CODE TESTS RESULT OUT OF RANGE REFERENCE UNITS LAB L300.4310 24.1-36.2 Seconds Normal PTT 27.1 Performed By: #### L100.0500, L300.3900, L300.4310, L300.4700 #### [facility] [address] [place], [place], [address] FIBRINOGEN Collected: 05/06/2018 Status: F Source: [place] 11:05 AM [facility] REPOSITORY TYPE CODE TESTS RESULT OUT OF RANGE REFERENCE UNITS LAB L300.4700 203-444 mg/dl High FIB 663 Performed By: #### L100.0500, L300.3900, L300.4310, L300.4700 #### [facility] [address] [place], [address] EMERGENCY DEPARTMENT Observed: 05/06/2018 Status: F Source: [place] SUMMARY 9:58 AM [facility] REPOSITORY [facility] Medical Records Department [address] [place] [address] Emergency Department Summary 05/06/18 0953 MR#: [id number] Acct: [id number] Name: MELVINA LUCIO Rep #: [id number] : 1985 32 From: Mihai Mckeon MD [...] Department Course and Treatment: Examination, consultation with washer operator, Dr. Aldridge and discharge to L AND D for monitoring Treatment Plan: To L AND D for monitoring Disposition: Discharge to L AND D Impression: Abdominal pain/uterine pain third trimester secondary to trauma This note was generated with fypio dictation software. It may contain incorrect words, [...] your Primary Care Provider. Call [facility] ([phone]) or report to the closest Emergency Room. Call 911 if necessary. 05/06/18 0958 <Electronically signed by Mihai Mckeon MD> Date Mihai Mckeon MD Cosigner Signature (If Indicated): Date CC: Joel Cruz MD PROGRESS Observed: 04/16/2018 Status: COMPLETED Source: [place] 1:[address] [facility] [place] REPOSITORY [facility] ID: [id number] Author: Ade Cassidy Ma Service: (none) Author [...] severely ill: Yes Patient denies history of Guillain-[place]uss[place] Syndrome (a severe paralytic illness): Yes Tdap Adacel injection was given without incident. See immunizations for details of immunizations administered today. VIS sheet provided: Yes Provider Luis Carlos was present in office at time of injection. Ade Cassidy Ma PROGRESS Observed: 03/20/2018 Status: COMPLETED Source: [place] 10:14 AM [facility] RE[facility] HNO ID: [id number] Author: Kofi Romero Service: (none) Author Type: [...] AND DIFFERENTIAL Collected: 03/05/2018 Status: F Source: [place] 3:06 PM [facility] RE[facility] TYPE CODE TESTS RESULT OUT [...] k/uL Abs Lymph 1.39 LAB AMONO % [place]% 7.0 LAB AAMONO <0.87 k/uL Abs [place] 0.65 LAB AEOS % Eosin% 1.7 LAB AAEOS <0.46 k/uL Abs Eosin 0.16 LAB ABASO % Baso% 0.2 LAB AABASO <0.11 k/uL Abs Baso <0.03 LAB AUNRBC 0 /100 WBC NRBCs 0.0 LAB ABNRBC <0.01 k/uL Absolute nRBC <0.01 LAB DTYP DTYPE Auto Diff Performed By: #### CBCDIF #### [facility] [address] [place], [place] [address] 50G, 1HR GEST. Collected: 03/05/2018 Status: F Source: [place] GSCN 3:[address] [facility] [place] REPOSITORY TYPE CODE TESTS RESULT OUT OF REFERENCE UNITS RANGE LAB GLUP 74-134 mg/dL Glucose 117 Screen, Preg Result Comment: Citizen Of [place] Congress of Obstetricians and Gynecologists (Guerrero/Adriana) guidelines state a gestational diabetes mellitus positive screen is made, in women not previously diagnosed with overt diabetes, when the 1 hr plasma glucose level is equal to or above 140 mg/dL. The [facility] External [facility] recommends a 135 mg/dL cutoff. Performed By: #### GLTGST #### [facility] [address] [place], [place] [address] PROGRESS Observed: 03/05/2018 Status: COMPLETED Source: [place] 2:01 PM [facility] HNO ID: [id number] Author: Ade Cassidy Ma Service: (none) Author Type: (none) Type: Progress Notes Filed: 03/05/2018 2:50 PM Note Text: 32 year old female here for INACTIVATED INFLUENZA VACCINE. 9012-1608 Season Patient is identified by name and date of : Yes [] CONTRAINDICATIONS color enhanced section Age less than 6 months? No Allergy to eggs, chicken, chicken feathers, or chicken dander? No Allergy to thimerosal (a preservative) or formaldehyde, gelatin? No History of severe reaction to any vaccine component or a previous dose of influenza vaccination? No History of Guillain-Truss[place] Syndrome within 6 weeks after a previous [...] sheet given? Yes See immunization activity in [facility] for details of immunizations adminstered today. Patient age: [age] year old For The 9971-1973 Flu Season 6-35 months old: Fluzone 0.25 [...] time. CNCO Observed: 03/05/2018 Status: COMPLETED Source: [place] 12:[address] [facility] REPOSITORY Letter Text [facility] [address] [place], [place] [address] 03/05/2018 To Whom It May Concern: This is to confirm that Melvina Lucio had an appointment and was seen at the [facility] in the Department of SUPERVISORY TRAINING SPECIALIST by Cara Aldridge MD on 03/05/2018 and was accompanied by Sandrita Lucio. Sincerely, Cara Aldridge MD PROGRESS Observed: 01/13/2018 Status: COMPLETED Source: [place] 9:37 AM [facility] HNO ID: [id number] Author: Kofi Romero Service: (none) Author Type: [...] indicated PROGRESS Observed: 12/30/2017 Status: COMPLETED Source: [place] 10:03 AM [facility] RE[facility] HNO ID: [id number] Author: Meredith Hardy (Cns) Service: (none) Author [...] . She had sleep study completed at [facility] on December 19, 2017, report per Dr. [...] (MISSED AB 1ST TRIMESTER) - IUD INSERTION (ORACLE EBS CONSULTANT DEPT)_*FL 04/11/07 Mirena, removed - PAST SURGICAL [...] the need for systemic opioids methotrexate suppressed AXMINSTER RUG SETTER and respiratory function should be used.-(Up to [...] and agreed with the plan. Meredith Hardy APRN.AXMINSTER RUG SETTER CNOV Observed: 12/30/2017 Status: COMPLETED Source: [place] 9:40 AM [facility] RE[facility] Office Visit (INTMWS) MELVINA LUCIO ([id number]) 1985 F Date Time Provider Department 12/30/17 9:40 AM MEREDITH HARDY ([facility]) INTMWS During your visit today, we recorded [...] . She had sleep study completed at [facility] on December 19, 2017, report per Dr. [...] (MISSED AB 1ST TRIMESTER) - IUD INSERTION (ORACLE EBS CONSULTANT DEPT)_*FL 04/11/07 Braulio removed - PAST SURGICAL [...] the need for systemic opioids methotrexate suppressed AXMINSTER RUG SETTER and respiratory function should be used.-(Up to [...] and agreed with the plan. Meredith Hardy APRN.AXMINSTER RUG SETTER Referring Provider: SELF [[id number]] Allergies As of Date: 12/30/2017 (No Known Allergies) Date Reviewed: 12/30/2017 Reviewed by: Cecily Mcnair LPN - Fully Assessed Reason for Visit: Results - Sleep Study [3564] Primary Visit Diagnosis:ABHINAV (obstructive sleep apnea) [G47.33] Other Visit Diagnosis:16 weeks gestation of [Z3A.16] Order(s):CONSULT TO SLEEP MEDICINE - ADULT [[id number]] Order #: [id number]: 1 Prescriptions as of 12/30/2017 Sig: PROMETHAZINE [...] SCRN SECOND Collected: 12/17/2017 Status: F [facility] [...] Dn Snyd LAB SE2STS SE2 Scr Rsk 1:77981 Trsmy 13 LAB SE2STR SE2 Scr Rsk <1:52980 Trsmy18 LAB SE2SON SE2 Scr Rsk 1:7600 ONTD LAB SE2RS View Seq Scrn results in Second Trim Scanned Documents link when available. LAB SEQLRV SEQ Staff Reviewed by Review Phong Cutler MD, PhD ([id number]) Performed By: #### SEQL2 #### [facility] [address], [place] [address] SEQUENT SCRN FIRST Collected: 11/18/2017 Status: F [facility] 10:19 AM [facility]INIC MAIN CAMPUS [...] Rsk Dn Synd LAB SE1STR SE1 Scr <1:94357 Rsk Trsmy18 LAB SE1ATR SE1 Age 1:1400 Rsk Trsmy18 LAB SE1RS View Seq Scrn results in First Trim Scanned Documents link when available. LAB SEQLRV SEQ Staff Reviewed by Review Phong Cutler MD, PhD ([id number]) Performed By: #### SEQL1 #### [facility] [address] [place], [place] [address] PROGRESS Observed: 11/18/2017 Status: COMPLETED Source: [place] 9:[address] [facility] REPOSITORY HNO ID: [id number] Author: Truman Armas Service: (none) Author Type: Physician Type: Progress Notes Filed: 11/18/2017 9:51 AM Note Text: Please see ultrasound report for details of this visit. Truman Armas M.D. PROGRESS Observed: 11/01/2017 Status: COMPLETED Source: [place] 1:[address] [facility] [place] REPOSITORY HNO ID: [id number] Author: Joel Cruz Service: (none) Author Type: [...] (MISSED AB 1ST TRIMESTER) - IUD INSERTION (ORACLE EBS CONSULTANT DEPT)_*FL 04/11/07 Mirena, removed - PAST SURGICAL [...] children: 1 Occupational History 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 [employer]* Social History Main Topics Smoking status: Former Smoker Packs/day: 0.50 Years: 10.00 Types: Cigarettes Quit date: 09/26/2017 Smokeless tobacco: Never Used Alcohol use: No Drug use: No Sexual activity: Yes Partners with: Male Social History Narrative Merged History Encounter Single, 1 child Weston, age 6 in 2014 Getting 5-15 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 32 year old lady here to be [...] counseling and/or coordinating care for the patient. Fofj-jm-uodu time was 30 minutes. Joel Cruz MD CNOV Observed: 11/01/2017 Status: COMPLETED Source: [place] 11:40 AM [facility] RE[facility] Office Visit (INTMWS) MELVINA LUCIO ([id number]) 1985 F Date Time Provider Department 11/01/17 11:40 AM JOEL CRUZ INTMWS During your visit today, we recorded the following information about you: Pulse Respiration Blood pressure Weight 100/minute 12/minute 124/64 103 kg Joel Cruz MD 11/12/2017 8:07 AM Signed HISTORY Melvinachapo Lucio is a 32 year old lady [...] (MISSED AB 1ST TRIMESTER) - IUD INSERTION (ORACLE EBS CONSULTANT DEPT)_*FL 04/11/07 Braulio, removed - PAST SURGICAL [...] children: 1 Occupational History 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 [employer]* Social History Main Topics Smoking status: Former Smoker Packs/day: 0.50 Years: 10.00 Types: Cigarettes Quit date: 09/26/2017 Smokeless tobacco: Never Used Alcohol use: No Drug use: No Sexual activity: Yes Partners with: Male Social History Narrative Merged History Encounter Single, 1 child Weston, age 6 in 2014 Getting 5-15 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 32 year old lady here to be [...] counseling and/or coordinating care for the patient. Smex-zq-kzrd time was 30 minutes. Joel Cruz MD Referring Provider: JUSTIN ALEMAN [[id number]] Allergies As of Date: 11/01/2017 (No Known [...] 11/12/17 PROGRESS Observed: 10/30/2017 Status: COMPLETED Source: [place] 4:09 PM [facility] REPOSITORY HNO ID: [id number] Author: Bebe Cuevas) Tasha Service: (none) Author Type: Nurse Practitioner Type: Progress Notes Filed: 10/30/2017 4:36 PM Note Text: Blacking Machine Operator offered: Patient declines. 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 Prescriptions: promethazine [...] external genitalia normal, normal Bartholin's glands, urethra, Pickerington's glands, no cervical lesions, good vaginal support, [...] APRN.CARMENCITA CNOV Observed: 10/30/2017 Status: COMPLETED Source: [place] 4:00 PM [facility] Office Visit (WOOB) MELVINA LUCIO ([id number]) 1985 F Date Time Provider Department 10/30/17 4:00 PM BEBE CORDOVA (CARMENCITA) WOOB During your visit today, we recorded the following information about you: Blood pressure Weight 100/68 104.3 kg Bebe Cordova APRN.CNP 10/30/2017 4:36 PM Signed Blacking Machine Operator offered: Patient declines. Melvina Lucio is a [...] (MISSED AB 1ST TRIMESTER) - IUD INSERTION (ORACLE EBS CONSULTANT DEPT)_*FL 04/11/07 Mirena, removed - PAST SURGICAL [...] children: 1 Occupational History 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 [employer]* Social History Main Topics Smoking status: Former Smoker Packs/day: 0.50 Years: 10.00 Types: Cigarettes Quit date: 09/26/2017 Smokeless tobacco: Never Used Alcohol use: No Drug use: No Sexual activity: Yes Partners with: Male Social History Narrative Merged History Encounter Single, 1 child Weston, age 6 in 2014 Getting 5-15 Works at [employer] on [employer] Current Outpatient Prescriptions: promethazine (PHENERGAN) 12.5 mg [...] external genitalia normal, normal Bartholin's glands, urethra, Pickerington's glands, no cervical lesions, good vaginal support, [...] painful or large call office. Bebe Cordova, CLIF.CLEANERS Referring Provider: SELF [200] Allergies As of Date: 10/30/2017 (No Known Allergies) Date Reviewed: 10/30/2017 Reviewed by: Bebe Cuevas) Tasha - Fully Assessed Reason for Visit: Vaginal Problem [117] Primary Visit Diagnosis:Vaginal irritation [N89.8] Order(s):HSV 1,2/VZV AMP MOLECULAR DETECT [SQHSVVZV] Order #: [id number] Prescriptions as of 10/30/2017 Sig: PROMETHAZINE 12.5 MG TABLET Take 1 tablet by mouth every * ORAL Take by mouth. Problem List As Of Date 10/30/2017 Noted Resolved SUPERVIS NORMAL 1ST PREG [Z34.00] INVALID FOR*06/16/2007 [facility] HIGH RISK NEC [O09.899] INVALID FOR*06/16/2007 PAP [...] HSV1,2/VZV AMPLIF Collected: 10/30/2017 Status: F Source: [place] 4:17 AM [facility] TYPE CODE TESTS RESULT OUT [...] Molecular Detection. Performed By: #### HSVVZV #### [facility] [address] [place] [address] TOXICOLOGY SCREEN,UR Collected: 10/18/2017 Status: F Source: [place] 2:45 PM [facility] TYPE CODE TESTS RESULT OUT [...] the same speci men through Client Services ([phone]) if contacted within 48 hours of initial testing. [1]Substance Abuse and Mental Health Services Administration (2012). Clinical Drug Testing in Primary Care Technical Assistance Publication Series 32. Department of Health and Human Services, [place], p.10. These tests were developed and their performance characteristics determined by [facility]'s Andrea [facility] ([facility]). They have not been cleared or a pproved by the FDA. [facility] is regulated under CLIA as qualified to perform high complexity testing. These tests are used for clinical purposes. They should not be regarded as investigational or for research. Performed By: #### UTOX2 #### [facility] [address] [place], [place] [address] Observed: 10/18/2017 Status: F Source: [place] URINE CULTURE 2:45 PM [facility] Sp. Request/Comment: - Specimen received in preservative Culture Result - <10,000 CFU/ml Normal urogenital dewey Performed By: #### URCUL #### [place] [address] [place], [place] [address] CBC Collected: 10/18/2017 Status: F Source: [place] 11:25 AM [facility] TYPE CODE TESTS RESULT OUT [...] #### CBC, RUBIGG, SYPHGX, HBSAG, HIV12C #### [facility] [address] [place] [address] RUBELLA IGG ANTIBODY Collected: 10/18/2017 Status: F Source: [place] 11:25 AM [facility] TYPE CODE TESTS RESULT OUT [...] #### CBC, RUBIGG, SYPHGX, HBSAG, HIV12C #### [place] [address] SYPHILIS IGG WITH Collected: 10/18/2017 Status: F Source: [facility] 11:25 AM [facility] TYPE CODE TESTS RESULT OUT [...] #### CBC, RUBIGG, SYPHGX, HBSAG, HIV12C #### [place] [address] [place] [id number] HEPATITIS B SURF. AG Collected: 10/18/2017 Status: F Source: [place] 11:[address] [facility] [place] REPOSITORY TYPE CODE TESTS RESULT OUT OF REFERENCE UNITS RANGE LAB HBSAG Negative Hepatitis B Negative Surf. Ag Performed By: #### CBC, RUBIGG, SYPHGX, HBSAG, HIV12C #### [facility] [address] [place] [id number] HIV 12 COMBO (AG/AB) Collected: 10/18/2017 Status: F Source: [place] 11:25 AM [facility] TYPE CODE TESTS RESULT OUT OF REFERENCE UNITS RANGE LAB HVAGAB Non Reactive HIV Non Reactive 12 Ag/Ab Result Comment: (NOTE) HIV Information: Stevens Rev. Code 3701.243(E): This information has been [...] #### CBC, RUBIGG, SYPHGX, HBSAG, HIV12C #### [place] [address] [place] [id number] 50G, 1HR GEST. Collected: 10/18/2017 Status: F Source: [place] GSCRN 11:25 AM [facility] TYPE CODE TESTS RESULT OUT OF REFERENCE UNITS RANGE LAB GLUP 74-134 mg/dL Low Glucose 73 Screen, Preg Result Comment: [place] Congress of Obstetricians and Gynecologists (Guerrero/Coustan) guidelines state a gestational diabetes mellitus positive screen is made, in women not previously diagnosed with overt diabetes, when the 1 hr plasma glucose level is equal to or above 140 mg/dL. The [facility] External [facility] recommends a 135 mg/dL cutoff. Performed By: #### GLTGST #### [facility] [address] [place], [place] [address] TYPE AND SCR,PRENATL Collected: 10/18/2017 Status: F Source: [place] 11:25 AM [facility] TYPE CODE TESTS RESULT OUT OF REFERENCE UNITS RANGE LAB %ABR B ABO/RH(D) POSITIVE LAB % Antibody NEG Screen Performed By: #### TSPN #### [place] [address] HGB EVAL CASCADE Collected: 10/18/2017 Status: F Source: [place] 11:25 AM [facility] TYPE CODE TESTS RESULT OUT [...] Staff Review Reviewed by Suzanne Francisco [place] ([id number]) LAB RBC 3.90-5. m/uL 20 RBC 4.25 LAB HGB 11.5-15 g/dL .5 Hemoglobin 13.7 LAB HCT 36.0-46 % .0 Hematocrit 39.9 LAB MCV 80.0-10 fL 0.0 MCV 93.9 LAB MCH 26.0-34 pG .0 MCH 32.2 LAB MCHC 30.5-36 g/dL .0 MCHC 34.3 LAB RDWCV 11.5-15 % .0 RDW-CV 11.9 Performed By: #### HBEVAL #### [place] [id number] GC/CHLAMYDIA AMPLIF Collected: 10/18/2017 Status: F Source: [place] 10:30 AM [facility] TYPE CODE TESTS RESULT OUT OF REFERENCE UNITS RANGE LAB GCCTSR GC/Chlam Amp Cervix Source LAB GCAMPL GC Negative Amplification for Neisseria gonorrhoeae by amplification. LAB CLAMPL Chlamydia Negative Amplif for Chlamydia trachomatis by amplification. Performed By: #### GCCT #### [place] [address] [place] [id number] PROGRESS Observed: 10/18/2017 Status: COMPLETED Source: [place] 10:09 AM [facility] HNO ID: [id number] Author: Cara Felton Service: (none) Author Type: [...] No Multivitamin with Folic acid: Yes Occupation: [employer] or [employer] heritage: No Would refuse blood transfusion if medically necessary: No No weight on file for this encounter. Patient BMI over 30? Yes, Consult to [facility] ordered Marital Status: Partner: Name: Sandrita Lucio Age: 39 Occupation: [employer] Gender: male History of STDs: None PAST MEDICAL HISTORY Diagnosis Date - Abnormal Pap smear of cervix - goiter - Miscarriage 2016 - Miscarriage 2016 - Sleep apnea PAST SURGICAL HISTORY Procedure Laterality Date - DANDC (MISSED AB 1ST TRIMESTER) - IUD INSERTION (ORACLE EBS CONSULTANT DEPT)_*FL 04/11/07 Mirena, removed - PAST SURGICAL [...] MD PROGRESS Observed: 10/03/2017 Status: COMPLETED Source: [place] 4:[address] [facility] [place] REPOSITORY [facility] ID: [id number] Author: Dayan Schilling RN Service: (none) Author [...] None CNNURSE Observed: 10/03/2017 Status: COMPLETED Source: [place] 3:00 PM [facility] Nurse Visit (WOOB) MELVINA LUCIO ([id number]) 1985 F Date Time Provider Department 10/03/17 3:00 PM NURSE PNOB [facility] WSTR WOOB During your visit today, we recorded the following information about you: Last Period 08/22/17 Dayan Schilling RN 10/03/2017 3:32 PM Signed SEQUENTIAL SCREENINGS The [facility] offers sequential screenings for women who are [...] It will require an appointment with our field technician. This is not an ultrasound performed [...] the above symptoms, contact our office at [phone] and ask to speak with a nurse. After hours, you can call [facility] at [phone] OR call [facility] at [phone] and ask to have the doctor web applications architect paged. If you consider this an emergency, [...] treatment is particularly effective in young patients-the [facility] Cord Blood Bank reports a 70 percent [...] issues. What do the experts say? The [place] Academy of Pediatrics encourages philanthropic blood banking [...] baby needs at the moment. The nurse, plastics technician, or physician will then label the samples, [...] AHEAD OF TIME! Public cord-blood lucia--DONATION: [employer] [phone] [facility]'s Placental Blood Program, [facility] Umbilical Cord Blood Bank, Private cord-blood lucia--SAVING FOR YOUR OWN USE: [employer], (I think this is the least expensive) [employer] [phone] [employer], (639) [employer] [place] Cord Blood Bank, [phone] 700-CORD Cells, [phone] [place] Cryobank, Cord Blood Registry, ([phone]) CORDBLOOD [employer], An Internet search may provide [...] requested diagnostic testing [Z01.89] Order(s):DOUG PT ED SUPERVISORY TRAINING SPECIALIST [[id number]] Order #: [id number]: 1 FUTURE DOUG PT ED SUPERVISORY TRAINING SPECIALIST [[id number]] Order #: [id number]. #:[id number]: 1 Prescriptions as of 10/03/2017 Sig: ORAL [...] instructions from your clinician: SEQUENTIAL SCREENINGS The [facility] offers sequential screenings for women who are [...] It will require an appointment with our field technician. This is not an ultrasound performed [...] the above symptoms, contact our office at [phone] and ask to speak with a nurse. After hours, you can call [facility] at [phone] OR call [facility] at [phone] and ask to have the doctor web applications architect paged. If you consider this an emergency, [...] is particularly effective in young patients- the [facility] Cord Blood Bank reports a 70 percent [...] issues. What do the experts say? The [place] Academy of Pediatrics encourages philanthropic blood banking [...] baby needs at the moment. The nurse, plastics technician, or physician will then label the samples, [...] AHEAD OF TIME! Public cord-blood lucia--DONATION: [employer] [phone] [facility]'s Placental Blood Program, [facility] Umbilical Cord Blood Bank, Private cord-blood lucia--SAVING FOR YOUR OWN USE: [employer], (I think this is the least expensive) [employer] [phone] [employer], (691) [employer] [place] Cord Blood Bank, [phone]) 700-C[employer] Cells, [phone] [place] [facility], Cord Blood Registry, (270) [facility], An Internet search may provide you with additional listings. Disposition: Return in about 2 weeks (around 10/18/2017) for New OB with Dr Aldridge. 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* Social History Main Topics Smoking status: Current Every Day Smoker Packs/day: 0.50 Years: 10.00 Types: Cigarettes Smokeless status: Never Used Alcohol use: No Drug use: No Sexual activity: Yes Partners with: Male Social History Narrative Merged History Encounter Single, 1 child Weston, age 6 in 2014 Getting 5-15 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, 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 [...] QUANTITATIVE BL Collected: 10/02/2017 Status: F Source: [place] 4:46 PM [facility] TYPE CODE TESTS RESULT OUT OF REFERENCE UNITS RANGE LAB HCGQT <5.0 mU/mL HCG, [place] [address].0 Result Comment: QUANTITATIVE HCG NORMAL RANGES Weeks of Gestation (Weeks Since LMP) 3 Weeks (5.8-71.2 mIU/mL) 4 Weeks (9.5-750 mIU/mL) 5 Weeks (217-7138 mIU/mL) 6 Weeks (158-85433 mIU/mL) 7 Weeks (3697-651344 mIU/mL) 8 Weeks (85197-301949 mIU/mL) 9 Weeks (98432-923055 mIU/mL) 10 Weeks (23127-381325 mIU/mL) 12 Weeks (16959-033065 mIU/mL) Referenced to 4th IS of [facility] Performed By: #### HCGQT #### [facility] [address] [place], [place] [address] HCG, QUANTITATIVE BL Collected: 09/30/2017 Status: F Source: [place] 4:46 PM [facility] TYPE CODE TESTS RESULT OUT OF REFERENCE UNITS RANGE LAB HCGQT <5.0 mU/mL [place] [address].0 Result Comment: QUANTITATIVE HCG NORMAL RANGES Weeks of Gestation (Weeks Since LMP) 3 Weeks (5.8-71.2 mIU/mL) 4 Weeks (9.5-750 mIU/mL) 5 Weeks (217-7138 mIU/mL) 6 Weeks (158-35099 mIU/mL) 7 Weeks (3697-429758 mIU/mL) 8 Weeks (50733-136975 mIU/mL) 9 Weeks (43293-679407 mIU/mL) 10 Weeks (50646-300343 mIU/mL) 12 Weeks (91972-153361 mIU/mL) Referenced to 4th IS of [facility] Performed By: #### HCGQT #### [facility] [address] [place], [place] [address] GLUCOSE, FASTING Collected: 06/11/2017 Status: F Source: [place] 8:20 AM [facility] TYPE CODE TESTS RESULT OUT OF REFERENCE UNITS RANGE LAB GLF 74-99 mg/dL High Glucose, 113 Fasting Result Comment: [place] Diabetes Association guidelines state that a diabetes mellitus diagnosis is preliminarily made when the fasting plasma glucose meets or exceeds 126 mg/dL. In the absence of unequivocal hyperglycemia, results should be confirmed with repeat testing. Patients are at increased risk for diabetes mellitus (prediabetes) when the fasting glucose is 100 to 125 mg/dL. Performed By: #### GLF #### [facility] [address] [place], [place] [address] TSH Collected: 06/11/2017 Status: F Source: [place] 8:20 AM [facility] TYPE CODE TESTS RESULT OUT [...] Clinical Practice Guideline. J Clin Endocrinol Metab, 2012:97:0501-5596. 2. Kyle IVY. Overview of thyroid disease in . UpToDate. 2016. Accessed on November 25, 2015. Performed By: #### TSH, HBA1C #### [facility] [address] [place], [place] [address] HEMOGLOBIN A1C Collected: 06/11/2017 Status: F Source: [place] 8:20 AM [facility] TYPE CODE TESTS RESULT OUT OF REFERENCE UNITS RANGE LAB HGBA1C 4.3-5.6 % Hemoglobin A1c 5.4 LAB HBA0 mg/dL Est. Average Glucose 108 Result Comment: eAG: (Estimated average glucose) is a calculated value from HgbA1c and is graphic art sales representative of the average blood glucose level in the last 2-3 month period. Performed By: #### TSH, HBA1C #### [facility] [address] [place], [place] [address] LUPUS ANTICOAG PANEL Collected: 06/11/2017 Status: F Source: [place] 8:20 AM [facility] TYPE CODE TESTS RESULT OUT OF RANGE REFERENCE UNITS LAB PSEC 9.7-13.0 sec PT Sec 10.4 LAB INR 0.9-1.3 PT INR 1.0 Result Comment: Vitamin K Antagonist (VKA) Therapeutic Range: INR 2 to 3 (Target INR of 2.5) Note: For patients treated with VKA drugs, such as warfarin, the [place] College of Chest Physicians 2012 Guideline recommends [...] Chest 2012, 141:7S-47S Gracia FRIAS et al. [facility] 2017, 70: 252-289 LAB APTT 23.0-32.4 sec [...] laboratory APTT reagent in use throughout the [facility]. LAB PLTNEU Negative PNP Negative LAB DRVSCN [...] endpoint titer. Performed By: #### LUPUSP #### [facility] [address] [place], [place] [address] PROGRESS Observed: 06/07/2017 Status: COMPLETED Source: [place] 9:[address] [facility] REPOSITORY HNO ID: [id number] Author: Bebe Cordova Service: (none) Author Type: [...] HISTORY Procedure Laterality Date - IUD INSERTION (ORACLE EBS CONSULTANT DEPT)_*FL 04/11/07 Mirena, removed - PAST SURGICAL [...] external genitalia normal, normal Bartholin's glands, urethra, Pickerington's glands, no vulvar lesions, no cervical lesions, [...] CNP CNOV Observed: 06/07/2017 Status: COMPLETED Source: [place] 8:45 AM [facility] Office Visit (WOOB) MELVINA LUCIO ([id number]) 1985 F Date Time Provider Department 06/07/17 [...] HISTORY Procedure Laterality Date - IUD INSERTION (ORACLE EBS CONSULTANT DEPT)_*FL 04/11/07 Mirena, removed - PAST SURGICAL [...] external genitalia normal, normal Bartholin's glands, urethra, Pickerington's glands, no vulvar lesions, no cervical lesions, [...] [N96] Order(s):LUPUS ANTICOAG PL [SQLUPUSP] Order #: [id number] FUTURE TSH BLD [SQTSH] Order #: [id number] FUTURE HGB A1C [PQDGL9O] Order #: [id number] FUTURE GLUCOSE FASTING BLD [SQGLF] Order #: [id number] FUTURE Medication notes this encounter ALBUTEROL SULFATE [...] Reason for discontinue is not on file. Piupxluh-Pq-Uhs-Fe-FA tab 06/07/2017 Class: Historical Med Route: ORAL Sig: Take 1 tablet by mouth. Disc: Reason for discontinue is not on file. Disposition: Return in 1 year (on 06/07/2018) for Annual Exam. Follow-up and Disposition History Recorded Encounter Status:Closed by BEBE CORDOVA on 06/07/17 ALLERGIES ALLERGIES DATE TYPE / CODE NAME / CODE REACTION SEVERITY SOURCE 05/24/2018 Drug No Known Unknown [facility] Allergy/416 Allergies/Z62147 Hospital 907337(SNOM 0388(RXNORM) Repository ED CT) Drug NO KNOWN [facility] Class/92809 ALLERGIES [facility] [place] 1003(SNOMED Repository CT) ENCOUNTERS ENCOUNTERS ADMIT/DISCHARGE ACCOUNT ADMITTING ENCOUNTER LOCATION SOURCE NUMBER CLASS 05/24/2018/05/27/20 [id number] [facility] Inpatient [place] [address] osh, Cara Encounter [facility] ing:WPRoom: Repository [id number]: 1 05/24/2018 [id number] [facility] ing:LABSPEC Repository 05/23/2018/05/23/20 [id number] Ambulatory [address] ing:WPOUTRoom Repository : [id number] 05/23/2018/05/27/20 [id number] Ambulatory [address] Repository 05/19/2018/05/20/20 [id number] Ambulatory [address] Repository 05/15/2018/05/16/20 [id number] Ambulatory [address] Repository 05/12/2018/05/13/20 [id number] Ambulatory [address] Repository 05/07/2018/05/09/20 [id number] Ambulatory [address] Repository 05/06/2018/05/06/[id number] ing:WPOUTRoom Repository : [id number] 04/29/2018/04/30/20 [id number] Ambulatory [address] Repository 04/16/2018/04/18/20 [id number] Ambulatory [address] Repository 04/02/2018/04/03/20 [id number] Ambulatory [address] Repository 03/19/2018/03/20/20 [id number] Ambulatory [facility] [place] Repository 03/19/2018/03/21/20 [id number] Ambulatory [facility] [place] Repository 03/05/2018/03/05/20 [id number] Ambulatory [facility] [place] Repository 03/05/2018/03/06/20 [id number] Ambulatory [facility] [place] Repository 02/12/2018/02/15/20 [id number] Ambulatory [facility] [place] Repository 01/13/2018/01/15/20 [id number] Ambulatory [facility] [place] Repository 01/13/2018/01/15/20 [id number] Ambulatory [facility] [place] Repository 12/30/2017/01/01/20 [id number] Ambulatory [facility] [place] Repository 12/19/2017 [id number] Ambulatory [facility] ing:SL Repository 12/17/2017/12/18/19 [id number] Ambulatory [facility] [place] Repository 12/17/2017/12/19/19 [id number] Ambulatory [facility] [place] Repository 11/18/2017 [id number] [facility]ulatory [facility] [place] Repository 11/18/2017/11/21/19 [id number] Ambulatory [facility] [place] Repository 11/18/2017/11/21/19 [id number] Ambulatory [facility] [place] Repository 11/01/2017/11/13/19 [id number] Ambulatory [facility] [place] Repository 10/30/2017/11/02/19 [id number] Ambulatory [facility] [place] Repository 10/18/2017/10/19/19 [id number] Ambulatory [facility] [place] Repository 10/18/2017/10/23/19 [id number] Ambulatory [facility] [place] Repository 10/03/2017/10/08/19 [id number] Ambulatory [facility] [place] Repository 10/03/2017/10/08/19 [id number] Ambulatory [facility] [place] Repository 10/02/2017 [id number] [facility] [place] Repository 09/30/2017 [id number] [facility] [place] Repository 06/11/2017/06/11/19 [id number] Ambulatory [facility] [place] Repository 06/07/2017/09/07/[id number] Repository PAYERS PAYERS ENCOUNTER GUARANTOR PAYER SUBSCRIBER SOURCE 05/24/2018 MELVINA A [id number] Primary MELVINA A Sherin [address] [place] Insurance:MEDICAL REEDDOB: [facility] [id number] [address]Kyc: (330) Number: Repository [phone] () [id number] Date:4020-31-30UM [address] [address]YF: 05/24/2018 Secondary NOT GIVENUNK [place] Insurance:SELF PAY [facility] Number: Effective Repository Date:2018-05-24 05/24/2018 MELVINA A [id number] Primary MELVINA A Sherin [place] Insurance:MEDICAL REEDDOB: [facility] [id number] [address]Xxa: (330) Number: Repository [phone] () [id number] Date:[id number] [address]ZE: 05/24/2018 Secondary NOT GIVENUNK Sherin Insurance:SELF PAY [facility] Number: Effective Repository Date:2018-05-24 05/23/2018 MELVINA A [id number] Primary MELVINA A Bland [place] Insurance:MEDICAL REEDDOB: [facility] [id number] [address]Siy: (330) Number: Repository [phone] () [id number] Date:[id number] [address]TU: 05/23/2018 Secondary NOT GIVENUNK [place] Insurance:SELF PAY [facility] Number: Effective Repository Date:2018-05-23 05/06/2018 MELVINA A [id number] Primary Insurance:[facility] MELVINA A Bland [address] [place] BULERS REEDDOB: [facility] Number: [id number] Hospital [address]Snz: [phone] [id number] Repository [phone] () Date:2182-78-37[address]OLMWS [address], [place] [address]GA: 05/06/2018 Secondary MELVINA A B[place] Insurance:MEDICAL REEDDOB: [facility] [id number] Hospital Number: Repository [id number] Date:6482-28-[place] [id number]: 05/06/2018 Tertiary NOT GIVENUNK [place] Insurance:SELF PAY [facility] Hospital Number: Effective Repository Date:2018-05-06 12/19/2017 MELVINA A [id number] Primary MELVINA A [place] Insurance:MEDICAL REEDDOB: [facility] [place] [id number] [id number]: 330) Number: Repository [phone] () [id number] Date:[id number] [id number]: 12/19/2017 Secondary NOT GIVENUNK Bland Insurance:SELF PAY [facility] Hospital Number: Effective Repository Date:2017-11-21
== END 2018-05-06 15:00 | disposition home or self-care (01) ==
LOC: ED 10:29 → WPOUT 10:30 → WP 10:33
PROVIDERS: Emergency Provider Emergency Medicine; Family Provider Internal Medicine; PCP Internal Medicine; Referring Provider Obstetrics & Gynecology; Visit Provider Obstetrics & Gynecology
DX: S39.91XA Unspecified injury of abdomen, initial encounter (principal); W00.0XXA Fall on same level due to ice and snow, initial encounter; Y93.9 Activity, unspecified; Y92.481 Parking lot as the place of occurrence of the external cause; Y99.9 Unspecified external cause status; R03.0 Elevated blood-pressure reading, without diagnosis of hypertension; O36.8130 Decreased fetal movements, third trimester, not applicable or unspecified; Z3A.36 36 weeks gestation of pregnancy
CPT/HCPCS: 36415; 59025; 59050; 85027; 85384; 85610; 85730; 99218; 99282; G0378

== ENCOUNTER 2018-05-23 11:30 | Outpatient (CLI) | payer OTHER, SELFPAY ==
[2018-05-23 12:25] VITALS: BMI 42.0
[2018-05-23 12:46] LABS: Hematocrit 40.4 % (37-47); Hemoglobin 13.6 g/dl (12.0-15.0); Mean Corp Hgb Conc 33.7 g/gl (32-36); Mean Corpuscular Hgb 31.6 pg (27.0-32.0); Mean Corpuscular Volume 93.7 fL (81-99); Mean Platelet Vol. 11.8 fl (6.2-12.0); Platelet Count 211 K/mm3 (150-450); RBC Distribution Width CV 12.8 % (11.6-14.6); RBC Distribution Width SD 42.8 fl (35.1-43.9); Red Blood Count 4.31 M/mm3 (4.2-5.4); White Blood Count 8.4 K/mm3 (4.4-11.0)
[2018-05-23 12:52] LABS: Partial Thromboplast Time 28.6 Seconds (24.1-36.2)
[2018-05-23 13:02] LABS: Scan Indicated on CBC? Y/N NO
[2018-05-23 13:27] LABS: Protein, Urine (Random) 13.5 mg/dL (<11.9); Protein:Creat Ratio 327 mg/g CRE (0-200)
[2018-05-23 13:27] LABS: AST(SGOT) 26 U/L (15-37); Alanine Aminotransfer ALT/SGPT 33 U/L (13-56); Creatinine, Serum 0.57 mg/dL (0.55-1.02); EST Glomerular Filtration Rate 130 mL/min (>60); Est Glom Filt Rate - Afr Amer 157 mL/min (>60); Estimated Creatinine Clearance 141.61 ml/min; Uric Acid 3.8 mg/dL (2.6-6.0)
--- NOTE | 2018-05-24 08:09 | OB.TRI.NOTE ---
History of Present Illness Date of Service: 05/23/18 Was patient seen by the physician?: No Reason For Visit: R/O PIH Date of Service: 05/23/18 Final JASMIN: 05/29/18 Final JASMIN Source: US <20 weeks Gestational age: 39 Weeks and 2 Days History of Present Illness: 32yo @39.2 wks sent from office for PRE E evaluation- one elevated BP in office with intermittent MURPHY. No visual changes. No RUQ pain. Allergies No Known Allergies Allergy (Verified 05/23/18 12:27) Laboratory Studies: Laboratory Tests 05/23/18 05/23/18 05/23/18 Range/Units 12:50 12:15 12:15 WBC (4.4-11.0) K/mm3 RBC (4.2-5.4) M/mm3 Hgb (12.0-15.0) g/dl Hct (37-47) % MCV (81-99) fL MCH (27.0-32.0) pg MCHC (32-36) g/gl RDW (11.6-14.6) % RDW Differential (35.1-43.9) fl Plt Count (150-450) K/mm3 MPV (6.2-12.0) fl PT 13.0 (11.7-14.9) SECONDS INR 1.0 APTT 28.6 (24.1-36.2) Seconds Creatinine 0.57 (0.55-1.02) mg/dL Estim Creat Clear Calc 141.61 ml/min Est GFR (MDRD) Af Amer 157 (>60) mL/min Est GFR (MDRD) Non-Af 130 (>60) mL/min Uric Acid 3.8 (2.6-6.0) mg/dL AST 26 (15-37) U/L ALT 33 (13-56) U/L U Random Total Protein 13.5 H (<11.9) mg/dL Urine Creatinine 41.30 (NO RANGE EST.) mg/dL Protein/Creatinin Ratio 327 H (0-200) mg/g CRE 05/23/18 Range/Units 12:15 WBC 8.4 (4.4-11.0) K/mm3 RBC 4.31 (4.2-5.4) M/mm3 Hgb 13.6 (12.0-15.0) g/dl Hct 40.4 (37-47) % MCV 93.7 (81-99) fL MCH 31.6 (27.0-32.0) pg MCHC 33.7 (32-36) g/gl RDW 12.8 (11.6-14.6) % RDW Differential 42.8 (35.1-43.9) fl Plt Count 211 (150-450) K/mm3 MPV 11.8 (6.2-12.0) fl PT (11.7-14.9) SECONDS INR APTT (24.1-36.2) Seconds Creatinine (0.55-1.02) mg/dL Estim Creat Clear Calc ml/min Est GFR (MDRD) Af Amer (>60) mL/min Est GFR (MDRD) Non-Af (>60) mL/min Uric Acid (2.6-6.0) mg/dL AST (15-37) U/L ALT (13-56) U/L U Random Total Protein (<11.9) mg/dL Urine Creatinine (NO RANGE EST.) mg/dL Protein/Creatinin Ratio (0-200) mg/g CRE NST - FHR Rate Baby A Baseline: 140 Variability:: Moderate Accelerations:: 15 x 15 Decelerations:: Variable - had one variable with good retrun to baseline NST Reactive:: Yes FHR Category:: Category I Uterine Activity:: irregular Impression/Plan 32yo @ 39.2 wks- r/o PRE E 1) PRE E work up- negative- P:C ratio slightly elevated will do 24 hr urine protein-and follow up results this weekend 2) headche improved without any medication or other intervention 3) no clonus on exam at hospital 4) BPs were normal 116-130s/60s-80
--- OUTSIDE RECORDS SUMMARY | 2018-07-09 05:03 | XMS RPT_ITS ---
:1985 Author Organization OHIP Support Name Relationship Address Phone BUEMI Unavailable [address] + [place] [address] KHADIJAH, SANDRITA Unavailable [address] + [place] [address] LUDY, NOMI Unavailable [address] [place] [address] BUEMI Unavailable [address] + [place] [address] KHADIJAH, SANDRITA Unavailable [address] + [place] [address] LUDY, NOMI Unavailable [address] [place] [address] BUEMI Unavailable [address] + [place] [address] KHADIJAH, SANDRITA Unavailable [address] + [place] [address] LUDY, NOMI Unavailable [address] [place] [address] BUEMI Unavailable [address] + [place] [address] KHADIJAH, SANDRITA Unavailable [address] + [place] [address] LUDY, NOMI Unavailable [address] [place] [address] BUEMI Unavailable [address] + [place] [address] KHADIJAH, SANDRITA Unavailable [address] + [place] [address] LUDY, NOMI Unavailable [address] [place] [address] BUEMI Unavailable [address] + [place] [address] KHADIJAH, SANDRITA Unavailable [address] + [place] [address] LUDY, NOMI Unavailable [address] [place] [address] BUEMI Unavailable [address] + [place] [address] KHADIJAH, SANDRITA Unavailable [address] + [place] [address] ULDY, NOMI Unavailable [address] [place] [address] Care Team Providers Name Role Phone NEYHART ALDRIDGE, CARA Referring Unavailable NEYHART ALDRIDGE, CARA Referring Unavailable JUSTIN ALEMAN Attending Unavailable NEYHART ALDRIDGE, CARA Attending Unavailable NEYHART ALDRIDGE, CARA Referring Unavailable BEBE CORDOVA (RESOURCE CONSERVATION SPECIALIST) Attending Unavailable JOEL CRUZ Attending Unavailable JUSTIN ALEMAN Referring Unavailable NEYHART ALDRIDGE, CARA Attending Unavailable NEYHART ALDRIDGE, CARA Referring Unavailable TRUMAN ARMAS Attending Unavailable NEYHART ALDRIDGE, CARA Referring Unavailable NEYHART ALDRIDGE, CARA Referring Unavailable NEYHART ALDRIDGE, CARA Attending Unavailable NEYHART ALDRIDGE, CARA Referring Unavailable MEREDITH HARDY (COMPLIANCE REVIEWER) Attending Unavailable KOFI ROMERO Attending Unavailable NEYHART [...] Attending Unavailable NEYHART ALDRIDGE, CARA Referring Unavailable GHAZALA ARNOLD (RESOURCE CONSERVATION SPECIALIST) Attending Unavailable Neyhart-Aldridge, Cara Attending Unavailable Neyhart-Aldridge, Cara Referring Unavailable Talampas, Joel Primary Care Unavailable Neyhart-Aldridge, Cara Attending Unavailable Talampas, Joel Primary Care Unavailable Neyhart-Aldridge, Cara Referring Unavailable Talampas, Joel Attending Unavailable Talampas, Joel Primary Care Unavailable ABIGAIL HARDY Consulting Unavailable Meredith Hardy MANAGER [employer]-C Consulting Unavailable Neyhart-Aldridge, Cara Admitting Unavailable Neyhart-Aldridge, Cara Attending Unavailable Talampas, Joel Primary Care Unavailable Neyhart-Aldridge, Cara Attending Unavailable Neyhart-Aldridge, Cara Referring Unavailable Talampas, Joel Primary Care Unavailable Neyhart-Aldridge, Cara Attending Unavailable Neyhart-Aldridge, Cara Referring Unavailable Talampas, Joel Primary Care Unavailable Talampas, Joel Primary Care Unavailable Neyhart-Aldridge, Cara Attending Unavailable Neyhart-Aldridge, Cara Referring Unavailable PROBLEMS PROBLEMS DATE TYPE CONDITION / CODE ATTENDING STATUS SOURCE 06/04/2018 Unknown R10.9 - Neyhart-McIntos Active [place] Unspecified h, Cara Community abdominal pain / Hospital R10.9(ICD-10) Repository 03/05/2018 Active Encounter for NA Active [facility] supervision of [facility] other normal Repository , second trimester / Z34.82(ICD-10) 03/05/2018 Active 27 weeks gestation NA Active [facility] of / [facility] Z3A.27(ICD-10) Repository 11/18/2017 Active Encounter for NA Active [facility] screening for Repository nuchal translucency / Z36.82(ICD-10) 10/18/2017 Active Encounter for NA Active [facility] supervision of [facility] other normal Repository , first trimester / Z34.81(ICD-10) 10/18/2017 Active Unknown / [place]LIN Active [facility] UNK(Unknown) ALDRIDGE, [facility] CARA Repository 09/30/2017 Active Hemorrhage in NA Active [facility] early , [facility] unspecified / Repository O20.9(ICD-10) PROCEDURES PROCEDURES No Procedure Records FoundRESULTS RESULTS OPERATIVE REPORT Observed: 06/11/2018 Status: F Source: [place] 12:56 AM [facility] REPOSITORY [facility] Medical Records Department [address] [place] [address] Operative Report 05/25/18 1056 MR#: [id number] Acct: [id number] Name: MELVINA LUCIO Rep #: [id number] : 1985 32 From: Cara Aldridge MD PCP: Joel Cruz MD Status: DIS IN Y [facility] ADDENDUM by Cara Wheeler MD on 06/11/18 at 0056 Code Visit repair of second degree perineal laceration performed without complications - repaired with 2-0 vicryl 06/11/18 0056 <Electronically signed by Cara Aldridge MD> Date Cara Wheeler MD cc: Cara Wheeler MD; Joel Cruz MD * Signed Vaginal Delivery Maternal Presentation: Medically Indicated Induction Method of Induction: Pitocin, Izaguirre Bulb Medical Reason for Induction: Preeclampsia, eclampsia Amniotic Membrane Rupture Type: Artificial Amniotic Fluid Description: Clear Final JASMIN: 05/29/18 Gestational age: 39 Weeks and 3 Days Date of Procedure: 05/25/18 Pre-Operative Diagnosis: Preeclampsia without severe features, term gestation Post-Operative Diagnosis: Same, live male infant Surgery/ Procedure Performed: Spontaneous Vaginal Delivery Type of Anesthesia: Epidural Description of Procedure: of live male born without complications- tight nucal x 1- delivered without reduction of nuchal. Infant vigorous at delivery, delayed cord clamping performed. Presentation: Vertex Placental Delivery Description: Spontaneous Placenta Disposition: [facility] Cord Vessel Description: 3 Vessels Nuchal Cord Compression: With compression Cord Entanglement: Around neck x 1, tight Drain: Izaguirre to straight drain Estimated Blood Loss: 250 A gender: Male (1 minute): 8 (5 minute): 9 Episiotomy Description: None Laceration: Perineal Extension/lac, 2nd degree Medications given after delivery: IV Pitocin Complications: None 05/25/18 1058 <Electronically signed by Cara Aldridge MD> Date Cara Wheeler MD CC: Cara Wheeler MD; Joel Cruz MD Signed PROGRESS Observed: 05/29/2018 Status: COMPLETED Source: [place] 10:03 AM [facility] REPOSITORY O ID: [id number] Author: Ghazala (Darrell Arnold Service: (none) Author Type: Nurse Practitioner Type: Progress Notes Filed: 05/29/2018 11:52 AM Note Text: Melvina Lucio is a 32 year old female who presents for problem visit Breast engorgement and swollen left foot. HPI: Concerned that feet are still swollen since delivery 5 days ago. left > right. Denies MURPHY, visual disturbances or epigastric pain. , thinks is getting a good latch but difficult due to positioning baby due to large breasts. Nursing every 2 hours for 10-15 minutes each breast. Not sure when breast milk came in. Never feels like she completely empties breast. PAST MEDICAL HISTORY Diagnosis Date - Abnormal Pap smear of cervix - goiter - Miscarriage 2016 - Miscarriage 2016 - Sleep apnea PAST SURGICAL HISTORY Procedure Laterality Date - DANDC (MISSED AB 1ST TRIMESTER) - IUD INSERTION (SUPERVISORY CBP OFFICER DEPT)_*FL 04/11/07 Braulio, removed - PAST SURGICAL [...] children: 1 Occupational History 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 [employer]* Social History Main Topics Smoking status: Former Smoker Packs/day: 0.50 Years: 10.00 Types: Cigarettes Quit date: 09/26/2017 Smokeless tobacco: Never Used Alcohol use: No Drug use: No Sexual activity: Yes Partners with: Male Social History Narrative Merged History Encounter Single, 1 child Weston, age 6 in 2015 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 PNV no.95/ferrous fum/folic ac ( ORAL) Take by mouth. promethazine (PHENERGAN) 12.5 mg tablet Take 1 tablet by mouth every 6 hours as needed. No current facility-administered medications for this visit. Allergies As of Date: 05/29/2018 (No Known Allergies) Fully Assessed 05/23/2018 REVIEW OF SYSTEMS Breast: No breast lumps,overlying skin changes, redness or skin retraction. both breasts engorged. Extremities: Bilateral 1+ pitting pedal edema, strong pedal pulses. Allergies and current medication updated:Yes EXAM: BP 116/82 Wt 263 lb (119.3kg) GENERAL: pleasant, female in no apparent distress BREAST: non-tender, symmetric, no dominant mass, normal nipple-areolar complex, no lymphadenopathy and bilateral engorgement CHEST: Normal inspiratory effort ASSESSMENT/PLAN: 1. Breast engorgement - ICD9: 611.79, ICD10: N64.59 (primary diagnosis) - CONSULT, Appointment made for today at 1115. Written order printed and given to pt to give to at [facility]. 2. Pedal edema - ICD9: 782.3, ICD10: R60.0 - Reassurance given. Encouraged to increase fluid intake and walk frequently. Follow-up at visit, earlier if needed. Ghazala Arnold APRN.RESOURCE CONSERVATION SPECIALIST PROGRESS Observed: 05/28/2018 Status: COMPLETED Source: [place] 3:34 PM [facility] REPOSITORY O ID: [id number] Author: Jayden Braxton LPN Service: (none) Author Type: (none) Type: Progress Notes Filed: 05/28/2018 3:38 PM Note Text: Pt delivered via at [facility] on 05/25/[address] Aldridge. See OB Outcome note. Jayden Braxton LPN HOSP Observed: 05/28/2018 Status: COMPLETED Source: [place] 12:[address] [facility] REPOSITORY Patient Update (WOOB) MELVINA LUCIO ([id number]) 1985 F Date Time Provider Department 05/28/18 CARA FELTON During your visit today, we recorded the following information about you: Jayden Braxton LPN 05/28/2018 3:38 PM Signed Pt delivered via at [facility] on 05/25/[address] Aldridge. See OB Outcome note. Jayden Braxton LPN Allergies As of Date: 05/28/2018 (No Known Allergies) Date Reviewed: 05/23/2018 Reviewed by: Joseline Cassidy Ma - Fully Assessed Prescriptions as of 05/28/2018 Sig: TUMS ORAL Take by mouth as needed. ORAL Take by mouth. PROMETHAZINE 12.5 MG TABLET Take 1 tablet by mouth every * Problem List As Of Date 05/28/2018 Noted Resolved SUPERVIS NORMAL 1ST PREG [Z34.00] [...] More... Obesity in [O99.210] INVALID FOR* More... Uterine size-date discrepancy, third trimester *INVALID FOR* More... Encounter Status:Closed by JAYDEN BRAXTON LPN on 05/28/18 DISCHARGE INSTRUCTION Observed: 05/27/2018 Status: F Source: [place] 8:36 AM [facility] REPOSITORY [facility] Medical Records Department [address] [place] [address] Instructions for Home/Discharge Instructions 05/27/18 0836 MR#: [id number] Acct: [id number] Name: MELVINA LUCIO Rep #: [id number] : 1985 32 From: Justin Aleman PCP: [...] Date Justin Aleman CC: Joel Cruz MD HISTORY AND PHYSICAL Observed: 05/24/2018 Status: F Source: [place] EXAM 8:22 PM [facility] REPOSITORY [facility] Medical Records Department [address] [place] [address] History and Physical 05/24/18 1847 MR#: [id number] Acct: [id number] Name: MELVINA LUCIO Rep #: [id number] : 1985 32 From: Cara Aldridge MD PCP: Joel Cruz MD Status: ADM IN Location: [id number] History Date of Admission: 05/24/18 Final JASMIN: 05/29/18 Final JASMIN Source: US <20 weeks Gestational age: 39 Weeks and 2 Days History of this : This is a 32 year-old, G 0V7337 @ 39.2 wks with preeclampsia without severe [...] GeLabor LenAnesthesiDelivery Provider FOB Date ght nder [facility] Location Labs: GBS neg, HEPB neg, HIV neg, Syphilis neg, RUB imm, Expected Infant Delivery Method: Spontaneous Vaginal Review of Systems Eyes: Denies: Blurred vision, Double vision HEENT: Denies: Head Aches Gastrointestinal: Denies: Abdominal Pain Physical Exam General: Alert, Oriented x3 Abdomen: Soft, Non Tender, Gravid Neurological: Cranial nerves II-XII grossly intact SUPERVISORY CBP OFFICER: Normal external genitalia Estimated gestational size: Appropriate [...] F Source: [place] NO DIFF 8:05 PM [facility] REPOSITORY TYPE CODE TESTS RESULT OUT [...] MPV 11.3 Performed By: #### L100.0500 #### [facility] Laboratory [address] [place], [place], [address] TYPE AND SCREEN Collected: 05/24/2018 Status: F Source: [place] 8:05 PM [facility] REPOSITORY Order Comment: Reason for Type AND Screen/Red Cells: ROUTINE TYPE CODE TESTS RESULT OUT OF RANGE REFERENCE UNITS LAB B10.0800 B Normal BLOOD TYPE GEL POSITIVE LAB B100.4000 Normal Antibody NEGATIVE Screen Performed By: #### B101.7450 #### [facility] Laboratory [address] [place], [place], [address] PROTEIN, URINE 24HR Collected: 05/24/2018 Status: F Source: [place] 12:50 PM [facility] REPOSITORY Order Comment: CALL WITH RESULTS [phone] TYPE CODE TESTS RESULT OUT OF RANGE REFERENCE UNITS LAB L501.1850 24.0 HOURS Normal UR COLLECT 24.0 TIME LAB L501.1875 mL Normal UR TOTAL 2950 VOLUME LAB L501.1900 <11.9 mg/dL High URINE PROTEIN 14.2 LAB L501.1925 <150 MG/24HR mg/24HR High 24hr UR 418.9 PROTEIN Performed By: #### L500.9000, L502.000 #### [facility] Laboratory [address] [place], [address] 24 HR URINE CREATININE Collected: 05/24/2018 Status: F Source: [place] 12:50 PM [facility] REPOSITORY Order Comment: CALL WITH RESULTS [phone] TYPE CODE TESTS RESULT OUT OF RANGE REFERENCE UNITS LAB L502.0100 24.0 HOURS Normal UR COLLECT 24.0 TIME LAB L502.0200 L Normal UR TOTAL 3.00 VOLUME LAB L502.0300 NO RANGE EST. mg/dL Normal URINE CREAT 71.30 LAB L502.0400 0.70-1.90 g/24 HR High UR.CREAT/24hr 2.10 Performed By: #### L500.9000, L502.000 #### [facility] Laboratory [address] [place], [address] PROTEIN+CREATININE Collected: Status: F Source: [place] W[place]URINE 05/23/2018 12:50 PM [facility] REPOSITORY TYPE CODE TESTS RESULT OUT OF RANGE REFERENCE UNITS LAB L501.1200 NO RANGE EST. mg/dL Normal UR CREAT 41.30 LAB L501.1930 <11.9 mg/dL High 13.5 PROTEIN,UR.R AN. LAB L501.1940 0-200 mg/g CRE High PROT:CRE 327 RATIO Performed By: #### L501.0900 #### [facility] Laboratory [address] [place], [address] CBC-COMPLETE BLOOD CNT Collected: 05/23/2018 Status: F Source: [place] NO DIFF 12:15 PM [facility] REPOSITORY TYPE CODE TESTS RESULT OUT [...] MPV 11.8 Performed By: #### L100.0500 #### [facility] Laboratory [address] [place], [place], [address] PROTHROMBIN TIME W/INR Collected: 05/23/2018 Status: F Source: [place] 12:15 PM [facility] REPOSITORY TYPE CODE TESTS RESULT OUT OF RANGE REFERENCE UNITS LAB L300.4150 11.7-14.9 SECONDS Normal PROTIME 13.0 LAB L300.4200 Normal INR 1.0 Performed By: #### L300.3900, L300.4310, L501.1105, L501.1400, L501.4100, L501.4405 #### [facility] Laboratory [address] [place], [place], [id number] PARTIAL THROMBOPLAST Collected: 05/23/2018 Status: F Source: [place] TIME 12:15 PM [facility] REPOSITORY TYPE CODE TESTS RESULT OUT OF RANGE REFERENCE UNITS LAB L300.4310 24.1-36.2 Seconds Normal PTT 28.6 Performed By: #### L300.3900, L300.4310, L501.1105, L501.1400, L501.4100, L501.4405 #### [facility] Laboratory [address] [place], [place], [id number] SERUM CREATININE AND Collected: 05/23/2018 Status: F Source: [place] GFR 12:15 PM [facility] REPOSITORY TYPE CODE TESTS RESULT OUT [...] L300.3900, L300.4310, L501.1105, L501.1400, L501.4100, L501.4405 #### [facility] Laboratory [address] [place], [address] URIC ACID Collected: 05/23/2018 Status: F Source: [place] 12:15 PM [facility] REPOSITORY TYPE CODE TESTS RESULT OUT OF RANGE REFERENCE UNITS LAB L501.1400 2.6-6.0 mg/dL Normal URIC 3.8 Result Comment: The drugs N-Acetylcysteine and Metamizole may falsely depress this assay. Performed By: #### L300.3900, L300.4310, L501.1105, L501.1400, L501.4100, L501.4405 #### [facility] Laboratory [address] [place], [address] AST(SGOT) Collected: 05/23/2018 Status: F Source: [place] 12:15 PM [facility] REPOSITORY TYPE CODE TESTS RESULT OUT OF RANGE REFERENCE UNITS LAB L501.4100 15-37 U/L Normal AST 26 Performed By: #### L300.3900, L300.4310, L501.1105, L501.1400, L501.4100, L501.4405 #### [facility] Laboratory [address] [place], [address] ALANINE AMINOTRANSFERAS Collected: 05/23/2018 Status: F Source: [place] (SGPT) 12:15 PM [facility] REPOSITORY TYPE CODE TESTS RESULT OUT OF RANGE REFERENCE UNITS LAB L501.4405 13-56 U/L Normal ALT 33 Performed By: #### L300.3900, L300.4310, L501.1105, L501.1400, L501.4100, L501.4405 #### [facility] Laboratory [address] [place], [address] PROGRESS Observed: 05/15/2018 Status: COMPLETED Source: [place] 4:[address] [facility] REPOSITORY HNO ID: [id number] Author: Kofi Romero Service: (none) Author Type: [...] STREP PCR Collected: 05/07/2018 Status: F Source: [place] 11:[address] [facility] REPOSITORY TYPE CODE TESTS RESULT OUT OF REFERENCE UNITS RANGE LAB GBPCRT Negative for GROUP Group B B STREP PCR Streptococcus by PCR. Performed By: #### GBPCR #### [facility] [address] [place], [place] [address] CBC-COMPLETE BLOOD CNT Collected: 05/06/2018 Status: F Source: [place] NO DIFF 11:05 AM [facility] REPOSITORY TYPE CODE TESTS RESULT OUT [...] By: #### L100.0500, L300.3900, L300.4310, L300.4700 #### [facility] Laboratory [address] [place], [place], [address] PROTHROMBIN TIME W/INR Collected: 05/06/2018 Status: F Source: [place] 11:05 AM [facility] REPOSITORY TYPE CODE TESTS RESULT OUT OF RANGE REFERENCE UNITS LAB L300.4150 11.7-14.9 SECONDS Normal PROTIME 13.0 LAB L300.4200 Normal INR 1.0 Performed By: #### L100.0500, L300.3900, L300.4310, L300.4700 #### [facility] Laboratory [address] [place], [place], [id number] PARTIAL THROMBOPLAST Collected: 05/06/2018 Status: F Source: [place] TIME 11:05 AM [facility] REPOSITORY TYPE CODE TESTS RESULT OUT OF RANGE REFERENCE UNITS LAB L300.4310 24.1-36.2 Seconds Normal PTT 27.1 Performed By: #### L100.0500, L300.3900, L300.4310, L300.4700 #### [facility] Laboratory [facility] [place], [place], [id number] FIBRINOGEN Collected: 05/06/2018 Status: F Source: [place] 11:05 AM [facility] REPOSITORY TYPE CODE TESTS RESULT OUT OF RANGE REFERENCE UNITS LAB L300.4700 203-444 mg/dl High FIB 663 Performed By: #### L100.0500, L300.3900, L300.4310, L300.4700 #### [facility] Laboratory [address] [place], [place], [address] EMERGENCY DEPARTMENT Observed: 05/06/2018 Status: F Source: [place] SUMMARY 9:58 AM [facility] REPOSITORY [facility] Medical Records Department [address] [place] [address] Emergency Department Summary 11/27/18 0953 MR#: [id number] Acct: [id number] Name: MELVINA LUCIO Rep #: [id number] : 1985 32 From: Mihai Mckeon MD [...] Department Course and Treatment: Examination, consultation with nurse orthopaedic, Dr. Aldridge and discharge to L AND D for monitoring Treatment Plan: To L AND D for monitoring Disposition: Discharge to L AND D Impression: Abdominal pain/uterine pain third trimester secondary to trauma This note was generated with Simple[employer] dictation software. It may contain incorrect words, [...] problems, contact your Primary Care Provider. Call [facility] Registry ([phone]) or report to the closest Emergency Room. Call 911 if necessary. 05/06/18 0958 <Electronically signed by Mihai Mckeon MD> Date Mihai Mckeon MD Cosigner Signature (If Indicated): Date CC: Joel Cruz MD PROGRESS Observed: 04/16/2018 Status: COMPLETED Source: [place] 1:[address] [facility] REPOSITORY HNO ID: [id number] Author: Joseline Cassidy Ma Service: (none) Author Type: (none) [...] severely ill: Yes Patient denies history of Guillain-Alto Syndrome (a severe paralytic illness): Yes Tdap Adacel injection was given without incident. See immunizations for details of immunizations administered today. VIS sheet provided: Yes Provider Angelique was present in office at time of injection. Joseline Cassidy Ma PROGRESS Observed: 03/20/2018 Status: COMPLETED Source: [place] 10:[address] [facility] REPOSITORY HNO ID: [id number] Author: Kofi Romero Service: (none) Author Type: [...] AND DIFFERENTIAL Collected: 03/05/2018 Status: F Source: [place] 3:[address] [facility] REPOSITORY TYPE CODE TESTS RESULT OUT [...] k/uL Abs Lymph 1.39 LAB AMONO % Ashe% 7.0 LAB AAMONO <0.87 k/uL Abs Ashe 0.65 LAB AEOS % Eosin% 1.7 LAB AAEOS <0.46 k/uL Abs Eosin 0.16 LAB ABASO % Baso% 0.2 LAB AABASO <0.11 k/uL Abs Baso <0.03 LAB AUNRBC 0 /100 WBC NRBCs 0.0 LAB ABNRBC <0.01 k/uL Absolute nRBC <0.01 LAB DTYP DTYPE Auto Diff Performed By: #### CBCDIF #### [facility] [address] [place], [place] [address] 50G, 1HR GEST. Collected: 03/05/2018 Status: F [facility] TYPE CODE TESTS RESULT OUT OF REFERENCE UNITS RANGE LAB GLUP 74-134 mg/dL Glucose 117 Screen, Preg Result Comment: [place] [employer] of [employer]stetricians and Gynecologists (Yolanda/Adriana) guidelines state a gestational diabetes mellitus positive screen is made, in women not previously diagnosed with overt diabetes, when the 1 hr plasma glucose level is equal to or above 140 mg/dL. The [facility] [employer] [facility] [place] recommends a 135 mg/dL cutoff. Performed By: #### GLTGST #### [facility] [address] [place], [place] [address] PROGRESS Observed: 03/05/2018 Status: COMPLETED Source: [place] 2:01 PM [facility] REPOSITORY HNO ID: [id number] Author: Joseline Cassidy Ma Service: (none) Author Type: (none) Type: Progress Notes Filed: 03/05/2018 2:50 PM Note Text: 32 year old female here for INACTIVATED INFLUENZA VACCINE. 5717-5478 Season Patient is identified by name and date of : Yes [] CONTRAINDICATIONS color enhanced section Age less than 6 months? No Allergy to eggs, chicken, chicken feathers, or chicken dander? No Allergy to thimerosal (a preservative) or formaldehyde, gelatin? No History of severe reaction to any vaccine component or a previous dose of influenza vaccination? No History of Guillain-Alto Syndrome within 6 weeks after a previous [...] sheet given? Yes See immunization activity in [facility] for details of immunizations adminstered today. Patient age: [age] year old For The 4118-6878 Flu Season 6-35 months old: Fluzone 0.25 [...] time. CNCO Observed: 03/05/2018 Status: COMPLETED Source: [place] 12:[address] [facility] REPOSITORY Letter Text [facility] [address] [place] [id number] 03/05/2018 To Whom It May Concern: This is to confirm that Melvinarip Lucio had an appointment and was seen at the [facility] in the Department of MARINE HABITAT RESOURCE SPECIALIST by Cara Aldridge MD on 03/05/2018 and was accompanied by Sandrita Lucio. Sincerely, Cara Aldridge MD PROGRESS Observed: 01/13/2018 Status: COMPLETED Source: [place] 9:[address] [facility] REPOSITORY HNO ID: [id number] Author: Kofi Romero Service: (none) Author Type: [...] indicated PROGRESS Observed: 12/30/2017 Status: COMPLETED Source: [place] 10:03 AM [facility] MAIN CAMPUS REPOSITORY [facility] ID: [id number] Author: Meredith Hardy (Cns) Service: (none) Author [...] . She had sleep study completed at [facility] on December 19, 2017, report per Dr. Shama rojas and recommended CPAP. She's been continuing to [...] (MISSED AB 1ST TRIMESTER) - IUD INSERTION (SUPERVISORY CBP OFFICER DEPT)_*FL 04/11/07 Braulio, marybeth - PAST SURGICAL HISTORY OF IANDD OF [...] Peak Flow Date and Time PF Resp 12/30/17938 -- 16 General appearance: Well appearing, alert, [...] the need for systemic opioids methotrexate suppressed COMPLIANCE REVIEWER and respiratory function should be used.-(Up to [...] and agreed with the plan. Meredith Hardy APRN.COMPLIANCE REVIEWER CNOV Observed: 12/30/2017 Status: COMPLETED Source: [place] 9:[address] [facility] REPOSITORY Office Visit (INTMWS) MELVINA LUCIO ([id number]) 1985 F Date Time Provider Department 12/30/17 9:40 AM MEREDITH HARDY (SHANTEL) INTMWS During your visit today, we recorded [...] . She had sleep study completed at [facility] on December 19, 2017, report per Dr. Shama rojas and recommended CPAP. She's been continuing to [...] (MISSED AB 1ST TRIMESTER) - IUD INSERTION (SUPERVISORY CBP OFFICER DEPT)_*FL 04/11/07 marybeth Ramsey - PAST SURGICAL HISTORY OF IANDD OF [...] Peak Flow Date and Time PF Resp 12/30/17938 -- 16 General appearance: Well appearing, alert, [...] setting of 14 cm H2O using a [employer] FFMof medium size, EPR of 3, heated [...] the need for systemic opioids methotrexate suppressed COMPLIANCE REVIEWER and respiratory function should be used.-(Up to [...] and agreed with the plan. Meredith Hardy APRN.COMPLIANCE REVIEWER Referring Provider: SELF [[id number]] Allergies As of Date: 12/30/2017 (No Known Allergies) Date Reviewed: 12/30/2017 Reviewed by: Cecily Mcnair LPN - Fully Assessed Reason for Visit: Results - Sleep Study [3564] Primary Visit Diagnosis:ABHINAV (obstructive sleep apnea) [G47.33] Other Visit Diagnosis:16 weeks gestation of [Z3A.16] Order(s):CONSULT TO SLEEP MEDICINE - ADULT [5569760] Order #: [id number]: 1 Prescriptions as of 12/30/2017 Sig: PROMETHAZINE 12.5 MG TABLET Take 1 tablet by mouth every * ORAL Take by mouth. Problem List As Of Date 12/30/2017 Noted Resolved SUPERVIS NORMAL 1ST PREG [Z34.00] [facility] [O09.899] INVALID FOR*06/16/2007 PAP [...] SCRN SECOND Collected: 12/17/2017 Status: F Source: [facility] PATIENTS ONLY 9:46 AM CLINIC MAIN CAMPUS [...] Dn Snyd LAB SE2STS SE2 Scr Rsk 1:71002 Trsmy 13 LAB SE2STR SE2 Scr Rsk <1:88982 Trsmy18 LAB SE2SON SE2 Scr Rsk 1:7600 ONTD LAB SE2RS View Seq Scrn results in Second Trim Scanned Documents link when available. LAB SEQLRV SEQ Staff Reviewed by Review Phong Cutler MD, PhD ([id number]) Performed By: #### SEQL2 #### [facility] [address], [place] [address] SEQUENT SCRN FIRST Collected: 11/18/2017 Status: F Source: [place] [facility] PATIENTS ONLY 10:19 AM [facility] MAIN [facility] REPOSITORY TYPE CODE TESTS RESULT OUT OF REFERENCE UNITS RANGE LAB SE1PAP MoM 0.56 SE1 IVY A LAB SE1HCG MoM 1.26 SE1 hCG LAB SE1INT Final result pending second Final trimester SE1 result pending sample Interp second trimester sample LAB SE1SDN SE1 Scrn 1:1100 Rsk Dn Synd LAB SE1ADN 1:310 SE1 Age Rsk Dn Synd LAB SE1STR SE1 Scr <1:27982 Rsk Trsmy18 LAB SE1ATR SE1 Age 1:1400 Rsk Trsmy18 LAB SE1RS View Seq Scrn results in First Trim Scanned Documents link when available. LAB SEQLRV SEQ Staff Reviewed by Review Phong Cutler MD, PhD ([id number]) Performed By: #### SEQL1 #### [facility] [address], [place] [address] PROGRESS Observed: 11/18/2017 Status: COMPLETED Source: [place] 9:49 AM [facility] MAIN CAMP[facility] REPOSITORY HNO ID: [id number] Author: Truman Armas Service: (none) Author Type: Physician Type: Progress Notes Filed: 11/18/2017 9:51 AM Note Text: Please see ultrasound report for details of this visit. Truman Armas M.D. PROGRESS Observed: 11/01/2017 Status: COMPLETED Source: [place] 1:01 PM CLINIC MAIN CAMPUS REPOSITORY HNO ID: [id number] Author: Joel Cruz Service: (none) Author Type: [...] (MISSED AB 1ST TRIMESTER) - IUD INSERTION (SUPERVISORY CBP OFFICER DEPT)_*FL 04/11/07 Mirena, removed - PAST SURGICAL [...] children: 1 Occupational History 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 [employer]* Social History Main Topics Smoking status: Former Smoker Packs/day: 0.50 Years: 10.00 Types: Cigarettes Quit date: 09/26/2017 Smokeless tobacco: Never Used Alcohol use: No Drug use: No Sexual activity: Yes Partners with: Male Social History Narrative Merged History Encounter Single, 1 child Weston, age 6 in 2015 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 32 year old lady here to [...] counseling and/or coordinating care for the patient. Xeei-un-rsan time was 30 minutes. Joel Cruz MD CNOV Observed: 11/01/2017 Status: COMPLETED Source: [place] 11:40 AM CLINIC MAIN CAMPUS REPOSITORY Office Visit (INTMWS) MELVINA LUCIO ([id number]) 1985 F Date Time Provider Department 11/01/17 11:40 AM JOEL CRUZ INTMWS During your visit today, we recorded the following information about you: Pulse Respiration Blood pressure Weight 100/minute 12/minute 124/64 103 kg Joel Cruz MD 11/12/2017 8:07 AM Signed HISTORY Melvina Lucio is a 32 year [...] (MISSED AB 1ST TRIMESTER) - IUD INSERTION (SUPERVISORY CBP OFFICER DEPT)_*FL 04/11/07 Mirena, removed - PAST SURGICAL [...] children: 1 Occupational History 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 [employer]* Social History Main Topics Smoking status: Former Smoker Packs/day: 0.50 Years: 10.00 Types: Cigarettes Quit date: 09/26/2017 Smokeless tobacco: Never Used Alcohol use: No Drug use: No Sexual activity: Yes Partners with: Male Social History Narrative Merged History Encounter Single, 1 child Wseton, age 6 in 2015 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 32 year old lady here to [...] counseling and/or coordinating care for the patient. Djru-yv-mbsi time was 30 minutes. Joel [place] MD Referring Provider: JUSTIN ALEMAN [[id number]] Allergies As of Date: 11/01/2017 (No Known [...] 11/12/17 PROGRESS Observed: 10/30/2017 Status: COMPLETED Source: [place] 4:09 PM [facility] MAIN CAMPUS REPOSITORY HNO ID: [id number] Author: Bebe Cuevas) Tasha Service: (none) Author Type: Nurse Practitioner Type: Progress Notes Filed: 10/30/2017 4:36 PM Note Text: Rda offered: Patient declines. Melvina Lucio is a [...] (MISSED AB 1ST TRIMESTER) - IUD INSERTION (SUPERVISORY CBP OFFICER DEPT)_*FL 04/11/07 Mirena, removed - PAST SURGICAL [...] children: 1 Occupational History 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 [employer]* Social History Main Topics Smoking status: Former Smoker Packs/day: 0.50 Years: 10.00 Types: Cigarettes Quit date: 09/26/2017 Smokeless tobacco: Never Used Alcohol use: No Drug use: No Sexual activity: Yes Partners with: Male Social History Narrative Merged History Encounter Single, 1 child Weston, age 6 in 2014 Getting 5-15 Works at [employer] on [employer], [facility] Current Outpatient Prescriptions: promethazine (PHENERGAN) 12.5 mg [...] external genitalia normal, normal Bartholin's glands, urethra, Hallowell's glands, no cervical lesions, good vaginal support, [...] painful or large call office. Bebe Cordova APRN.CNP CNOV Observed: 10/30/2017 Status: COMPLETED Source: [place] 4:[address] [facility] REPOSITORY Office Visit (WOOB) MELVINA LUCIO ([id number]) 1985 F Date Time Provider Department 10/30/17 4:00 PM BEBE CORDOVA (CARMENCITA) WOOB During your visit today, we recorded the following information about you: Blood pressure Weight 100/68 104.3 kg Bebe Cordova APRN.CNP 10/30/2017 4:36 PM Signed Rda offered: Patient declines. Melvina Lucio is a [...] (MISSED AB 1ST TRIMESTER) - IUD INSERTION (SUPERVISORY CBP OFFICER DEPT)_*FL 04/11/07 Braulio, removed - PAST SURGICAL [...] children: 1 Occupational History 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 [employer]* Social History Main Topics Smoking status: Former Smoker Packs/day: 0.50 Years: 10.00 Types: Cigarettes Quit date: 09/26/2017 Smokeless tobacco: Never Used Alcohol use: No Drug use: No Sexual activity: Yes Partners with: Male Social History Narrative Merged History Encounter Single, 1 child Weston, age 6 in 2014 Getting 5-15 Works at [employer] on [employer] Current Outpatient Prescriptions: promethazine (PHENERGAN) 12.5 mg [...] external genitalia normal, normal Bartholin's glands, urethra, Hallowell's glands, no cervical lesions, good vaginal support, [...] painful or large call office. Bebe Cordova, CLIF.CARMENCITA Referring Provider: SELF [200] Allergies As of Date: 10/30/2017 (No Known Allergies) Date Reviewed: 10/30/2017 Reviewed by: Bebe Cuevas) Tasha - Fully Assessed Reason for Visit: Vaginal Problem [117] Primary Visit Diagnosis:Vaginal irritation [N89.8] Order(s):HSV 1,2/VZV AMP MOLECULAR DETECT [SQHSVVZV] Order #: [id number] Prescriptions as of 10/30/2017 Sig: PROMETHAZINE 12.5 MG TABLET Take 1 tablet by mouth every * ORAL Take by mouth. Problem List As Of Date 10/30/2017 Noted Resolved SUPERVIS NORMAL 1ST PREG [Z34.00] INVALID [facility]*06[facility]16[facility] [O09.899] INVALID FOR*06/16/2007 PAP [...] [O99.210] INVALID FOR* More... Encounter Status:Closed by TASHABEBE Marina on 10/30/17 HSV1,2/VZV AMPLIF Collected: 10/30/2017 Status: F Source: [place] 4:[address] [facility] REPOSITORY TYPE CODE TESTS RESULT OUT [...] Molecular Detection. Performed By: #### HSVVZV #### [facility] [address] [place] [address] TOXICOLOGY SCREEN,UR Collected: 10/18/2017 Status: F Source: [place] 2:[address] [facility] REPOSITORY TYPE CODE TESTS RESULT OUT [...] the same speci men through Client Services ([phone]) if contacted within 48 hours of initial testing. [1]Substance Abuse and Mental Health Services Administration (2012). Clinical Drug Testing in Primary Care Technical Assistance Publication Series 32. Department of Health and Human Services, [place], p.10. These tests were developed and their performance characteristics determined by [facility]'s [facility] [place] ([facility]). They have not been cleared or a pproved by the FDA. [facility] is regulated under CLIA as qualified to perform high complexity testing. These tests are used for clinical purposes. They should not be regarded as investigational or for research. Performed By: #### UTOX2 #### [address] [place] [address] Observed: 10/18/2017 Status: F Source: [place] URINE CULTURE 2:[address] [facility] REPOSITORY Sp. Request/Comment: - Specimen received in preservative Culture Result - <10,000 CFU/ml Normal urogenital dewey Performed By: #### URCUL #### [place] [address] CBC Collected: 10/18/2017 Status: F Source: [place] 11:[address] [facility] REPOSITORY TYPE CODE TESTS RESULT OUT [...] #### CBC, RUBIGG, SYPHGX, HBSAG, HIV12C #### [address] [place], [place] [address] RUBELLA IGG ANTIBODY Collected: 10/18/2017 Status: F Source: [place] 11:[address] [facility] REPOSITORY TYPE CODE TESTS RESULT OUT [...] #### CBC, RUBIGG, SYPHGX, HBSAG, HIV12C #### [place] [address] SYPHILIS IGG WITH Collected: 10/18/2017 Status: F Source: [facility] 11:[address] [facility] REPOSITORY TYPE CODE TESTS RESULT OUT [...] #### CBC, RUBIGG, SYPHGX, HBSAG, HIV12C #### [place] [address] HEPATITIS B SURF. AG Collected: 10/18/2017 Status: F Source: [place] 11:[address] [facility] REPOSITORY TYPE CODE TESTS RESULT OUT OF REFERENCE UNITS RANGE LAB HBSAG Negative Hepatitis B Negative Surf. Ag Performed By: #### CBC, RUBIGG, SYPHGX, HBSAG, HIV12C #### [place] [address] HIV 12 COMBO (AG/AB) Collected: 10/18/2017 Status: F Source: [place] 11:[address] [facility] REPOSITORY TYPE CODE TESTS RESULT OUT OF REFERENCE UNITS RANGE LAB HVAGAB Non Reactive HIV Non Reactive 12 Ag/Ab Result Comment: (NOTE) HIV Information: [place] Rev. Code 3701.243(E): This information has been [...] #### CBC, RUBIGG, SYPHGX, HBSAG, HIV12C #### [facility] [address] [address] 50G, 1HR GEST. Collected: 10/18/2017 Status: F Source: [place] GSCRN 11:[address] [facility] REPOSITORY TYPE CODE TESTS RESULT OUT OF REFERENCE UNITS RANGE LAB GLUP 74-134 mg/dL Low Glucose 73 Screen, Preg Result Comment: [place] Congress of Obstetricians and Gynecologists (Guerrero/Coustan) guidelines state a gestational diabetes mellitus positive screen is made, in women not previously diagnosed with overt diabetes, when the 1 hr plasma glucose level is equal to or above 140 mg/dL. The [facility] [employer] [facility] [place] recommends a 135 mg/dL cutoff. Performed By: #### GLTGST #### [address] [address] TYPE AND SCR,PRENATL Collected: 10/18/2017 Status: F Source: [place] 11:[address] [facility] REPOSITORY TYPE CODE TESTS RESULT OUT OF REFERENCE UNITS RANGE LAB %ABR B ABO/RH(D) POSITIVE LAB % Antibody NEG Screen Performed By: #### TSPN #### [address] [address] HGB EVAL CASCADE Collected: 10/18/2017 Status: F Source: [place] 11:[address] [facility] REPOSITORY TYPE CODE TESTS RESULT OUT [...] Staff Review Reviewed by Suzanne Francisco MD ([id number]) LAB RBC 3.90-5. m/uL 20 RBC 4.25 LAB HGB 11.5-15 g/dL .5 Hemoglobin 13.7 LAB HCT 36.0-46 % .0 Hematocrit 39.9 LAB MCV 80.0-10 fL 0.0 MCV 93.9 LAB MCH 26.0-34 pG .0 MCH 32.2 LAB MCHC 30.5-36 g/dL .0 MCHC 34.3 LAB RDWCV 11.5-15 % .0 RDW-CV 11.9 Performed By: #### HBEVAL #### [address] [address] GC/CHLAMYDIA AMPLIF Collected: 10/18/2017 Status: F Source: [place] 10:[address] [facility] REPOSITORY TYPE CODE TESTS RESULT OUT OF REFERENCE UNITS RANGE LAB GCCTSR GC/Chlam Amp Cervix Source LAB GCAMPL GC Negative Amplification for Neisseria gonorrhoeae by amplification. LAB CLAMPL Chlamydia Negative Amplif for Chlamydia trachomatis by amplification. Performed By: #### GCCT #### [address] [id number] PROGRESS Observed: 10/18/2017 Status: COMPLETED Source: [place] 10:[address] [facility] REPOSITORY HNO ID: [id number] Author: Cara Felton Service: (none) Author Type: [...] No Multivitamin with Folic acid: Yes Occupation: [employer] Bahai or heritage: No Would refuse blood transfusion if medically necessary: No No weight on file for this encounter. Patient BMI over 30? Yes, Consult to [facility] Well Moms ordered Marital Status: Partner: Name: Sandrita Lucio Age: 39 Occupation: [employer] Gender: male History of STDs: None PAST MEDICAL HISTORY Diagnosis Date - Abnormal Pap smear of cervix - goiter - Miscarriage 2016 - Miscarriage 2015 - Sleep apnea PAST SURGICAL HISTORY Procedure Laterality Date - DANDC (MISSED AB 1ST TRIMESTER) - IUD INSERTION (SUPERVISORY CBP OFFICER DEPT)_*FL 04/11/07 Mirena, removed - PAST SURGICAL [...] MD PROGRESS Observed: 10/03/2017 Status: COMPLETED Source: [place] 4:[address] [facility] REPOSITORY HNO ID: [id number] Author: Dayan Schilling RN Service: (none) Author [...] None CNNURSE Observed: 10/03/2017 Status: COMPLETED Source: [place] 3:[address] [facility] REPOSITORY Nurse Visit (WOOB) MELVINA LUCIO ([id number]) 1985 F Date Time Provider Department 10/03/17 3:00 PM NURSE BEBETO [facility] During your visit today, we recorded the following information about you: Last Period 08/22/17 Dayan Schilling RN 10/03/2017 3:32 PM Signed SEQUENTIAL SCREENINGS The [facility] offers sequential screenings for women who are [...] It will require an appointment with our radiochemical technician. This is not an ultrasound performed [...] the above symptoms, contact our office at [phone] and ask to speak with a nurse. After hours, you can call doctors registry at [phone] OR call [facility] at [phone] and ask to have the doctor utilization reviewer paged. If you consider this an emergency, dial or go to your nearest emergency department. Cord-Blood Banking Up until recently, the umbilical cord--along with the blood that remained in it after a baby was born and the cord cut--was simply discarded by the hospital. Then, in the late 1980s, researchers discovered that cord blood possessed unusual [...] treatment is particularly effective in young patients-the [facility] Cord Blood Bank reports a 70 [...] issues. What do the experts say? The [place] [employer] encourages philanthropic blood banking [...] baby needs at the moment. The nurse, psychologist research assistant, or physician will then label the samples, [...] AHEAD OF TIME! Public cord-blood lucia--DONATION: [employer] [phone] [facility]'s Placental Blood Program, [facility] Umbilical Cord Blood Bank, Private cord-blood lucia--SAVING FOR YOUR OWN USE: Cryo[employer]Cell [employer], (I think this is the least expensive) [employer] [phone] [employer], ([phone]) [employer] [place] Cord Blood Bank, [phone] Cells, [phone] [place] Cryobank, Cord Blood Registry, (002) CORDBLPrinceton [facility] Cent[facility]d, An Internet search may provide you with [...] requested diagnostic testing [Z01.89] Order(s):DOUG PT ED MARINE HABITAT RESOURCE SPECIALIST [[id number]] Order #: [id number]: 1 FUTURE DOUG PT ED MARINE HABITAT RESOURCE SPECIALIST [[id number]] Order #: [id number]. #:[id number]: [id number] Prescriptions as of 10/03/2017 Sig: ORAL [...] instructions from your clinician: SEQUENTIAL SCREENINGS The [facility] offers sequential screenings for women who are [...] It will require an appointment with our radiochemical technician. This is not an ultrasound performed [...] the above symptoms, contact our office at [phone] and ask to speak with a nurse. After hours, you can call doctors [facility] at [phone] OR call [facility] at [phone] and ask to have the doctor utilization reviewer paged. If you consider this an emergency, dial 9-1-1 or go to your nearest emergency department. Cord-Blood Banking Up until recently, the umbilical cord--along with the blood that remained in it after a baby was born and the cord cut--was simply discarded by the hospital. Then, in the late 1980s, researchers discovered that cord blood possessed unusual [...] is particularly effective in young patients- the [facility] Cord Blood Bank reports a 70 [...] issues. What do the experts say? The [place] [employer] encourages philanthropic blood banking [...] baby needs at the moment. The nurse, psychologist research assistant, or physician will then label the samples, [...] AHEAD OF TIME! Public cord-blood lucia--DONATION: [employer] [phone] [facility]'s Placental Blood Program, [facility] Umbilical Cord Blood Bank, Private cord-blood lucia--SAVING FOR YOUR OWN USE: [employer]Cell [employer], (I think this is the least expensive) [employer] [phone] [employer], ([phone]) [employer] [place] Cord Blood Bank, [phone] Cells, [phone] [place] Cryobank, Cord Blood Registry, (838) CORDBLOOD [facility], An Internet search may provide you with additional listings. Disposition: Return in about 2 weeks (around 10/18/2017) for New OB with Dr Aldridge. Follow-up and Disposition History Recorded Encounter Status:Closed by DAYAN SCHILLING RN on 10/03/17 MARY Observed: 10/03/2017 Status: COMPLETED Source: [place] 9:[address] [facility] REPOSITORY Office Visit (WOOB) MELVINA LUCIO ([id number]) 1985 F Date Time Provider Department 10/03/17 [...] HISTORY Procedure Laterality Date - IUD INSERTION (SUPERVISORY CBP OFFICER DEPT)_*FL 04/11/07 Mirena, removed - PAST SURGICAL [...] children: 1 Occupational History 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 [employer]* Social History Main Topics Smoking status: Current Every Day Smoker Packs/day: 0.50 Years: 10.00 Types: Cigarettes Smokeless status: Never Used Alcohol use: No Drug use: No Sexual activity: Yes Partners with: Male Social History Narrative Merged History Encounter Single, 1 child Weston, age 6 in 2014 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, 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 [...] 10/03/17 PROGRESS Observed: 10/03/2017 Status: COMPLETED Source: [place] 8:50 AM [facility] REPOSITORY HNO ID: [id number] Author: Justin Aleman Service: (none) Author Type: [...] HISTORY Procedure Laterality Date - IUD INSERTION (SUPERVISORY CBP OFFICER DEPT)_*FL 04/11/07 Mirena, removed - PAST SURGICAL [...] 1 Occupational History 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 [employer]* [employer]* Social History Main Topics Smoking status: Current Every Day Smoker Packs/day: 0.50 Years: 10.00 Types: Cigarettes Smokeless status: Never Used Alcohol use: No Drug use: No Sexual activity: Yes Partners with: Male Social History Narrative Merged History Encounter Single, 1 child Weston, age 6 in 2014 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 REPOSITORY TYPE CODE TESTS RESULT OUT OF REFERENCE UNITS RANGE LAB HCGQT <5.0 mU/mL HCG, High Quantitative Bl 22311.0 Result Comment: QUANTITATIVE HCG NORMAL RANGES Weeks of Gestation (Weeks Since LMP) 3 Weeks (5.8-71.2 mIU/mL) 4 Weeks (9.5-750 mIU/mL) 5 Weeks (217-7138 mIU/mL) 6 Weeks (158-35116 mIU/mL) 7 Weeks (3697-603105 mIU/mL) 8 Weeks (03501-071187 mIU/mL) 9 Weeks (69505-577225 mIU/mL) 10 Weeks (92877-884346 mIU/mL) 12 Weeks (40000-668940 mIU/mL) Referenced to 4th IS of [facility] Performed By: #### HCGQT #### [facility] [address] [place], [place] [address] HCG, QUANTITATIVE BL Collected: 09/30/2017 Status: F Source: [place] 4:[address] [facility] REPOSITORY TYPE CODE TESTS RESULT OUT OF REFERENCE UNITS RANGE LAB HCGQT <5.0 mU/mL HCG, [place] 90423.0 Result Comment: QUANTITATIVE HCG NORMAL RANGES Weeks of Gestation (Weeks Since LMP) 3 Weeks (5.8-71.2 mIU/mL) 4 Weeks (9.5-750 mIU/mL) 5 Weeks (217-7138 mIU/mL) 6 Weeks (158-35815 mIU/mL) 7 Weeks (3697-477473 mIU/mL) 8 Weeks (18694-425311 mIU/mL) 9 Weeks (76250-942059 mIU/mL) 10 Weeks (11968-546812 mIU/mL) 12 Weeks (53466-282528 mIU/mL) Referenced to 4th IS of [employer] Performed By: #### HCGQT #### [facility] [address] [address] ALLERGIES ALLERGIES DATE TYPE / CODE NAME / CODE REACTION SEVERITY SOURCE 05/24/2018 Drug No Known Unknown [facility] Allergy/416 Allergies/F14588 Hospital 132683(SNOM 0388(RXNORM) Repository ED CT) Drug NO KNOWN [facility] Class/61721 ALLERGIES Main Chambers 1003(SNOMED Repository CT) ENCOUNTERS ENCOUNTERS ADMIT/DISCHARGE ACCOUNT ADMITTING ENCOUNTER LOCATION SOURCE NUMBER CLASS 06/11/2018/06/11/19 [id number] Ambulatory [place] ing:WPOUTRoom Repository : WPOLRM 05/29/2018/05/29/20 [id number] Ambulatory [address] ing:WPOUTRoom Repository : WPOL 05/29/2018/06/05/20 [id number] Ambulatory [address] Repository 05/24/2018/05/27/20 [id number] [facility] Inpatient [place] [address], [facility] ing:WPRoom: Repository [id number]: 1 05/24/2018 [id number] [facility] ing:LABSPEC Repository 05/23/2018/05/23/20 [id number] Ambulatory [address] ing:WPOUTRoom Repository : WP014 05/23/2018/05/27/20 [id number] Ambulatory [address] Repository 05/19/2018/05/20/20 [id number] Ambulatory [address] Repository 05/15/2018/05/16/20 [id number] Ambulatory [address] Repository 05/12/2018/05/13/20 [id number] Ambulatory [address] Repository 05/07/2018/05/09/20 [id number] Ambulatory [address] Repository 05/06/2018/05/06/20 [id number] Ambulatory [place] ing:WPOUTRoom Repository : WP011 04/29/2018/04/30/20 [id number] Ambulatory [place] [address] [facility] [address] [facility] Repository 04/16/2018/04/18/20 [id number] Ambulatory [place] [address] [facility] Repository 04/02/2018/04/03/20 [id number] Ambulatory [facility] Repository 03/19/2018/03/20/20 [id number] Ambulatory [facility] Repository 03/19/2018/03/21/20 [id number] Ambulatory [place] Repository 03/05/2018/03/05/20 [id number] Ambulatory [place] Repository 03/05/2018/03/06/20 [id number] Ambulatory [facility] Repository 02/12/2018/02/15/20 [id number] Ambulatory [facility] Repository 01/13/2018/01/15/20 [id number] Ambulatory [place] Repository 01/13/2018/01/15/20 [id number] Ambulatory [place] Repository 12/30/2017/01/01/20 [id number] Ambulatory [place] [facility] Repository 12/19/2017 [id number] Ambulatory [facility] ing:SL Repository 12/17/2017/12/18/19 [id number] Ambulatory [place] [facility] Repository 12/17/2017/12/19/19 [id number] Ambulatory [place] Repository 11/18/2017 [id number] Ambulatory [facility] Repository 11/18/2017/11/21/19 [id number] Ambulatory [place] Repository 11/18/2017/11/21/19 [id number] Ambulatory [place] [facility] Repository 11/01/2017/11/13/19 [id number] Ambulatory [place] Repository 10/30/2017/11/02/19 [id number] Ambulatory [place] Repository 10/18/2017/10/19/19 [id number] Ambulatory [place] Repository 10/18/2017/10/23/19 [id number] Ambulatory [place] [facility] Repository 10/03/2017/10/08/19 [id number] Ambulatory [address] Repository 10/03/2017/10/08/19 [id number] Ambulatory [address] Repository 10/02/2017 [id number] Ambulatory [facility] Repository 09/30/2017 [id number] [facility] Repository PAYERS PAYERS ENCOUNTER GUARANTOR PAYER SUBSCRIBER SOURCE 06/11/2018 MELVINA A [id number] Primary MELVINA A [place] Insurance:MEDICAL REEDDOB: [facility] [id number] [address]Lla: (330) Number: Repository [phone] () [id number] Date:[id number] [address]ZJ: 06/11/2018 Secondary NOT GIVENUNK [place] Insurance:SELF PAY [facility] Number: Effective Repository Date:2018-06-11 05/29/2018 MELVINA A [id number] Primary MELVINA A [place] Insurance:MEDICAL REEDDOB: [facility] [id number] Hospital [address]Xcp: (330) Number: Repository [phone] () [id number] Date:[id number] [address]TU: 05/29/2018 Secondary NOT GIVENUNK [place] Insurance:SELF PAY [facility] Number: Effective Repository Date:2018-05-29 05/24/2018 MELVINA A [id number] Primary MELVINA A [place] Insurance:MEDICAL REEDDOB: [facility] [id number] [facility] [address]Pew: (330) Number: Repository [phone] () [id number] Date:[id number] [address]MB: 05/24/2018 Secondary NOT GIVENUNK [place] Insurance:SELF PAY [facility] Number: Effective Repository Date:2018-05-24 05/24/2018 MELVINA A [id number] Primary MELVINA A [place] Insurance:MEDICAL REEDDOB: [facility] [id number] Hospital [address]Cvt: 330) Number: Repository [phone] () [id number] Date:[id number] [address] [address]AN: 05/24/2018 Secondary NOT GIVENUNK [place] Insurance:SELF PAY [facility] Number: Effective Repository Date:2018-05-24 05/23/2018 MELVINA A [id number] Primary MELVINA A [place] Insurance:MEDICAL REEDDOB: [facility] [id number] Hospital [address]Amn: (330) Number: Repository [phone] () [id number] Date:[id number] [address]RK: 05/23/2018 Secondary NOT GIVENUNK [place] Insurance:SELF PAY [facility] Number: Effective Repository Date:2018-05-23 05/06/2018 MELVINA A [id number] Primary Insurance:[facility] MELVINA A [place] [address] [place] [facility] REEDDOB: [facility] Number: [id number] [facility] [address]Jhx: ([phone]) [id number] Repository [phone] () Date:8809-58-31NNMAGH [address], [place] [address]NG: 05/06/2018 Secondary MELVINA A [place] Insurance:MEDICAL REEDDOB: [facility] [id number] Hospital Number: Repository [id number] Date:7767-01-75[place] [id number]: 05/06/2018 Tertiary NOT GIVENUNK [place] Insurance:SELF PAY [facility] Number: Effective Repository Date:2018-05-06 12/19/2017 MELVINA A [id number] Primary MELVINA A [place] [address] [place] Insurance:MEDICAL REEDDOB: [facility] [id number] Hospital [address]Xix: (330) Number: Repository [phone] ) [id number] Date:5014-92-14[address] [address]CW: 12/19/2017 Secondary NOT GIVENUNK Sherin Insurance:SELF PAY [facility] Number: Effective Repository Date:2017-11-21
== END 2018-05-23 14:52 | disposition home or self-care (01) ==
LOC: WPOUT 11:35 → WP 11:35
PROVIDERS: Family Provider Internal Medicine; PCP Internal Medicine; Referring Provider Obstetrics & Gynecology; Visit Provider Obstetrics & Gynecology
DX: O26.93 Pregnancy related conditions, unspecified, third trimester (principal); R03.0 Elevated blood-pressure reading, without diagnosis of hypertension; Z3A.39 39 weeks gestation of pregnancy; R51 Headache
CPT/HCPCS: 36415; 59050; 82565; 82570; 84156; 84450; 84460; 84550; 85027; 85610; 85730; 99218; G0378

== ENCOUNTER → 2018-05-24 14:17 | Outpatient (CLI) | payer OTHER, SELFPAY ==
[2018-05-23 12:25] VITALS: BMI 42.0
[2018-05-24 14:38] LABS: 24 Hour Urine Protein 418.9 mg/24HR (<150 MG/24HR); 24HR. UA Prot. Total Volume 2950 mL; Urine Protein (24 Hour) 14.2 mg/dL (<11.9)
--- OUTSIDE RECORDS SUMMARY | 2018-08-27 11:02 | XMS RPT_ITS ---
:1985 Author Organization OHIP Support Name Relationship Address Phone BUEMI Unavailable [address] + [place] [address] KHADIJAH, SANDRITA Unavailable [address] + [place] [address] LUDY, NOMI Unavailable [address] [place] [address] BUEMI Unavailable [address] + [place] [address] KHADIJAH, SANDRITA Unavailable [address] + [place] [address] LUDY, NOMI Unavailable [address] [place] [address] BUEMI Unavailable [address] + [place] [address] KHADIJAH, SANDRITA Unavailable [address] + [place] [address] LUDY, NOMI Unavailable [address] [place] [address] BUEMI Unavailable [address] + [place] [address] KHADIJAH, SANDRITA Unavailable [address] + [place] [address] LUDY, NOMI Unavailable [address] [place] [address] BUEMI Unavailable [address] + [place] [address] KHADIJAH, SANDRITA Unavailable [address] + [place] [address] LUDY, NOMI Unavailable [address] [place] [address] BUEMI Unavailable [address] + [place] [address] KHADIJAH, SANDRITA Unavailable [address] + [place] [address] LUDY, NOMI Unavailable [address] [place] [address] BUEMI Unavailable [address] + [place] [address] KHADIJAH, SANDRITA Unavailable [address] + [place] [address] LUDY, NOMI Unavailable [address] [place] [address] Care Team Providers Name Role Phone NEYHART ALDRIDGE, CARA Referring Unavailable NEYHART ALDRIDGE, CARA Referring Unavailable JUSTIN ALEMAN Attending Unavailable NEYHART ALDRIDGE, CARA Attending Unavailable NEYHART ALDRIDGE, CARA Referring Unavailable BEBE CORDOVA (SAP PPM CONSULTANT) Attending Unavailable JOEL CRUZ Attending Unavailable JUSTIN ALEMAN Referring Unavailable NEYHART ALDRIDGE, CAAR Attending Unavailable NEYHART ALDRIDGE, CARA Referring Unavailable TRUMAN ARMAS Attending Unavailable NEYHART ALDRIDGE, CARA Referring Unavailable NEYHART ALDRIDGE, CARA Referring Unavailable NEYHART ALDRIDGE, CARA Attending Unavailable NEYHART ALDRIDGE, CARA Referring Unavailable MEREDITH HARDY (OPERATING ENGINEER) Attending Unavailable KOFI ROMERO Attending Unavailable NEYHART [...] NEYHART ALDRIDGE, CARA Referring Unavailable GHAZALA ARNOLD (SAP PPM CONSULTANT) Attending Unavailable Neyhart-Aldridge, Cara Attending Unavailable Talampas, Joel [...] ABIGAIL HARDY Consulting Unavailable Meredith Hardy TRUST ACCOUNTS SUPERVISOR-C Consulting Unavailable Neyhart-Aldridge, Cara Attending Unavailable Neyhart-Aldridge, Cara Referring Unavailable Talampas, Joel Primary Care Unavailable Neyhart-Aldridge, Cara Attending Unavailable Neyhart-Aldridge, Cara Referring Unavailable Talampas, Joel Primary Care Unavailable PROBLEMS PROBLEMS DATE TYPE CONDITION / CODE ATTENDING STATUS SOURCE 06/04/2018 Unknown R10.9 - Neyhart-McIntos Active [place] Unspecified h, Cara Community abdominal pain / Hospital R10.9(ICD-10) Repository 03/05/2018 Active Encounter for NA Active [facility] supervision of [facility] other normal Repository , second trimester / Z34.82(ICD-10) 03/05/2018 Active 27 weeks gestation NA Active [facility] of / [facility] Z3A.27(ICD-10) Repository 11/18/2017 Active Encounter for NA Active [facility] screening for Repository nuchal translucency / Z36.82(ICD-10) 10/18/2017 Active Encounter for NA Active [facility] supervision of [facility] other normal Repository , first trimester / Z34.81(ICD-10) 10/18/2017 Active Unknown / FRANKLIN Active [facility] UNK(Unknown) ALDRIDGE, [facility] CARA Repository 09/30/2017 Active Hemorrhage in NA Active [facility] early , [facility] unspecified / Repository O20.9(ICD-10) PROCEDURES PROCEDURES No Procedure Records FoundRESULTS RESULTS OPERATIVE REPORT Observed: 06/11/2018 Status: F Source: [place] 12:56 AM [facility] [place] [facility] Medical Records Department [address] [place] [address] Operative Report 05/25/18 1056 MR#: [id number] Acct: [id number] Name: MELVINA LUCIO Rep #: [id number] : 1985 32 From: Cara Aldridge MD PCP: Joel Cruz MD Status: DIS IN Y [facility] ADDENDUM by Cara Wheeler MD on 06/11/18 [...] Signed PROGRESS Observed: 05/29/2018 Status: COMPLETED Source: [place] 10:03 AM [facility] REPOSITORY O ID: [id number] Author: Ghazala (Darrell Arnold Service: (none) Author [...] (MISSED AB 1ST TRIMESTER) - IUD INSERTION (COMPENSATION ADJUSTER DEPT)_*[place] 04/11/07 Braulio, removed - PAST SURGICAL [...] children: 1 Occupational History 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 [employer]* Social History Main Topics Smoking status: Former Smoker Packs/day: 0.50 Years: 10.00 Types: Cigarettes Quit date: 09/26/2017 Smokeless tobacco: Never Used Alcohol use: No Drug use: No Sexual activity: Yes Partners with: Male Social History Narrative Merged History Encounter Single, 1 child Weston, age 6 in 2015 Getting 5-15 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, [place] Current Outpatient Prescriptions: calcium carbonate (TUMS ORAL) [...] given to pt to give to at [facility]. 2. Pedal edema - ICD9: 782.3, ICD10: R60.0 - Reassurance given. Encouraged to increase fluid intake and walk frequently. Follow-up at visit, earlier if needed. Ghazala Arnold APRN.SAP PPM CONSULTANT PROGRESS Observed: 05/28/2018 Status: COMPLETED Source: [place] 3:34 PM [facility] REPOSITORY O ID: [id number] Author: Jayden Braxton LPN Service: (none) Author Type: (none) Type: Progress Notes Filed: 05/28/2018 3:38 PM Note Text: Pt delivered via at [facility] on 05/25/[address] Aldridge. See OB Outcome note. Jayden Braxton LPN HOSP Observed: 05/28/2018 Status: COMPLETED Source: [place] 12:00 AM [facility] REPOSITORY Patient Update (WOOB) MELVINA LUCIO ([id number]) 1985 F Date Time Provider Department 05/28/18 CARA FELTON During your visit today, we recorded the following information about you: Jayden Braxton LPN 05/28/2018 3:38 PM Signed Pt delivered via at [facility] on 05/25/[address] Aldridge. See OB [...] DISCHARGE INSTRUCTION Observed: 05/27/2018 Status: F Source: [place] 8:36 AM [facility] [place] [facility] Medical Records Department [address] [place] [address] Instructions for Home/Discharge Instructions 05/27/18 0836 MR#: [id number] Acct: [id number] Name: MELVINA LUCIO Rep #: [id number] : 1985 32 From: Justin Aleman PCP: [...] AND PHYSICAL Observed: 05/24/2018 Status: F Source: [place] EXAM 8:22 PM [facility] [place] [facility] Medical Records Department [address] [place] [address] History and Physical 05/24/18 1847 MR#: [id number] Acct: [id number] Name: MELVINA LUCIO Rep #: [id number] : 1985 32 From: Cara Aldridge MD PCP: Joel Cruz MD Status: ADM IN Location: [id number] History Date of Admission: 05/24/18 Final JASMIN: 05/29/18 Final JASMIN Source: US <20 weeks Gestational age: 39 Weeks and 2 Days History of this : This is a 32 year-old, G 1V8419 @ 39.2 wks with preeclampsia without severe [...] GeLabor LenAnesthesiDelivery Provider FOB Date ght nder [facility] a Location Labs: GBS neg, HEPB neg, HIV neg, Syphilis neg, RUB imm, Expected Infant Delivery Method: Spontaneous Vaginal Review of Systems Eyes: Denies: Blurred vision, Double vision HEENT: Denies: Head Aches Gastrointestinal: Denies: Abdominal Pain Physical Exam General: Alert, Oriented x3 Abdomen: Soft, Non Tender, Gravid Neurological: Cranial nerves II-XII grossly intact COMPENSATION ADJUSTER: Normal external genitalia Estimated gestational size: Appropriate [...] F Source: [place] NO DIFF 8:05 PM [facility] [place] TYPE CODE TESTS RESULT OUT OF [...] MPV 11.3 Performed By: #### L100.0500 #### [facility] [address] [facility] [place], [place], [address] TYPE AND SCREEN Collected: 05/24/2018 Status: F Source: [place] 8:05 PM [facility] [place] Order Comment: Reason for Type AND Screen/Red Cells: ROUTINE TYPE CODE TESTS RESULT OUT OF RANGE REFERENCE UNITS LAB B10.0800 B Normal BLOOD TYPE GEL POSITIVE LAB B100.4000 Normal Antibody NEGATIVE Screen Performed By: #### B101.7450 #### [facility] [address] [facility] [place], [place], [address] PROTEIN, URINE 24HR Collected: 05/24/2018 Status: F Source: [place] 12:50 PM [facility] [place] Order Comment: CALL WITH RESULTS [phone] TYPE CODE TESTS RESULT OUT OF RANGE REFERENCE UNITS LAB L501.1850 24.0 HOURS Normal UR COLLECT 24.0 TIME LAB L501.1875 mL Normal UR TOTAL 2950 VOLUME LAB L501.1900 <11.9 mg/dL High URINE PROTEIN 14.2 LAB L501.1925 <150 MG/24HR mg/24HR High 24hr UR 418.9 PROTEIN Performed By: #### L500.9000, L502.000 #### [facility] [address] [place], [address] 24 HR URINE CREATININE Collected: 05/24/2018 Status: F Source: [place] 12:50 PM [facility] [place] Order Comment: CALL WITH RESULTS [phone] TYPE CODE TESTS RESULT OUT OF RANGE REFERENCE UNITS LAB L502.0100 24.0 HOURS Normal UR COLLECT 24.0 TIME LAB L502.0200 L Normal UR TOTAL 3.00 VOLUME LAB L502.0300 NO RANGE EST. mg/dL Normal URINE CREAT 71.30 LAB L502.0400 0.70-1.90 g/24 HR High UR.CREAT/24hr 2.10 Performed By: #### L500.9000, L502.000 #### [facility] [address] [place], [address] PROTEIN+CREATININE Collected: Status: F Source: [place] WALLURINE 05/23/2018 12:50 PM [facility] [place] TYPE CODE TESTS RESULT OUT OF RANGE REFERENCE UNITS LAB L501.1200 NO RANGE EST. mg/dL Normal UR CREAT 41.30 LAB L501.1930 <11.9 mg/dL High 13.5 PROTEIN,UR.R AN. LAB L501.1940 0-200 mg/g CRE High PROT:CRE 327 RATIO Performed By: #### L501.0900 #### [facility] [address] [place], [address] CBC-COMPLETE BLOOD CNT Collected: 05/23/2018 Status: F Source: [place] NO DIFF 12:15 PM [facility] [place] TYPE CODE TESTS RESULT OUT OF [...] MPV 11.8 Performed By: #### L100.0500 #### [facility] [address] [place], [place], [address] PROTHROMBIN TIME W/INR Collected: 05/23/2018 Status: F Source: [place] 12:15 PM [facility] [place] TYPE CODE TESTS RESULT OUT OF RANGE REFERENCE UNITS LAB L300.4150 11.7-14.9 SECONDS Normal PROTIME 13.0 LAB L300.4200 Normal INR 1.0 Performed By: #### L300.3900, L300.4310, L501.1105, L501.1400, L501.4100, L501.4405 #### [facility] [address] [place], [place], [address] PARTIAL THROMBOPLAST Collected: 05/23/2018 Status: F Source: [place] TIME 12:15 PM [facility] [place] TYPE CODE TESTS RESULT OUT OF RANGE REFERENCE UNITS LAB L300.4310 24.1-36.2 Seconds Normal PTT 28.6 Performed By: #### L300.3900, L300.4310, L501.1105, L501.1400, L501.4100, L501.4405 #### [facility] [address] [place], [place], [id number] SERUM CREATININE AND Collected: 05/23/2018 Status: F Source: [place] GFR 12:15 PM [facility] [place] TYPE CODE TESTS RESULT OUT OF [...] L300.3900, L300.4310, L501.1105, L501.1400, L501.4100, L501.4405 #### [facility] [address] [place], [address] URIC ACID Collected: 05/23/2018 Status: F Source: [place] 12:15 PM [facility] [place] TYPE CODE TESTS RESULT OUT OF RANGE REFERENCE UNITS LAB L501.1400 2.6-6.0 mg/dL Normal URIC 3.8 Result Comment: The drugs N-Acetylcysteine and Metamizole may falsely depress this assay. Performed By: #### L300.3900, L300.4310, L501.1105, L501.1400, L501.4100, L501.4405 #### [facility] [address] [place], [address] AST(SGOT) Collected: 05/23/2018 Status: F Source: [place] 12:15 PM [facility] [place] TYPE CODE TESTS RESULT OUT OF RANGE REFERENCE UNITS LAB L501.4100 15-37 U/L Normal AST 26 Performed By: #### L300.3900, L300.4310, L501.1105, L501.1400, L501.4100, L501.4405 #### [facility] [address] [place], [address] ALANINE AMINOTRANSFERAS Collected: 05/23/2018 Status: F Source: [place] (SGPT) 12:15 PM [facility] [place] TYPE CODE TESTS RESULT OUT OF RANGE REFERENCE UNITS LAB L501.4405 13-56 U/L Normal ALT 33 Performed By: #### L300.3900, L300.4310, L501.1105, L501.1400, L501.4100, L501.4405 #### [facility] [address] [place], [address] PROGRESS Observed: 05/15/2018 Status: COMPLETED Source: [place] 4:58 PM [facility] REPOSITORY HNO ID: [id number] Author: Kofi Romero Service: (none) Author Type: [...] STREP PCR Collected: 05/07/2018 Status: F Source: [place] 11:41 PM [facility] REPOSITORY TYPE CODE TESTS RESULT OUT OF REFERENCE UNITS RANGE LAB GBPCRT Negative for GROUP Group B B STREP PCR Streptococcus by PCR. Performed By: #### GBPCR #### [facility] Laboratories [address] [place], [place] [address] CBC-COMPLETE BLOOD CNT Collected: 05/06/2018 Status: F Source: [place] NO DIFF 11:05 AM [facility] [place] TYPE CODE TESTS RESULT OUT OF [...] By: #### L100.0500, L300.3900, L300.4310, L300.4700 #### [facility] [address] [place], [place], [address] PROTHROMBIN TIME W/INR Collected: 05/06/2018 Status: F Source: [place] 11:05 AM [facility] [place] TYPE CODE TESTS RESULT OUT OF RANGE REFERENCE UNITS LAB L300.4150 11.7-14.9 SECONDS Normal PROTIME 13.0 LAB L300.4200 Normal INR 1.0 Performed By: #### L100.0500, L300.3900, L300.4310, L300.4700 #### [facility] [address] [facility] [address] [place], [place], [id number] PARTIAL THROMBOPLAST Collected: 05/06/2018 Status: F Source: [place] TIME 11:05 AM [facility] [place] TYPE CODE TESTS RESULT OUT OF RANGE REFERENCE UNITS LAB L300.4310 24.1-36.2 Seconds Normal PTT 27.1 Performed By: #### L100.0500, L300.3900, L300.4310, L300.4700 #### [facility] [facility] [place], [place], [id number] FIBRINOGEN Collected: 05/06/2018 Status: F Source: [place] 11:05 AM [facility] [place] TYPE CODE TESTS RESULT OUT OF RANGE REFERENCE UNITS LAB L300.4700 203-444 mg/dl High FIB 663 Performed By: #### L100.0500, L300.3900, L300.4310, L300.4700 #### [facility] [address] [place], [place], [address] EMERGENCY DEPARTMENT Observed: 05/06/2018 Status: F Source: [place] SUMMARY 9:58 AM [facility] [place] [facility] Medical Records Department [address] [facility] [place] [address] Emergency Department Summary 11/27/18 0953 MR#: [id number] Acct: [id number] Name: MELVINA LUCIO Rep #: [id number] : 1985 32 From: Mihai Mckeon MD [...] Department Course and Treatment: Examination, consultation with substation designer, Dr. Aldridge and discharge to L AND D for monitoring Treatment Plan: To L AND D for monitoring Disposition: Discharge to L AND D Impression: Abdominal pain/uterine pain third trimester secondary to trauma This note was generated with [employer] dictation software. It may contain incorrect words, [...] problems, contact your Primary Care Provider. Call [facility] ([phone]) or report to the closest Emergency Room. Call 911 if necessary. 05/06/18 0958 <Electronically signed by Mihai Mckeon MD> Date Mihai Mckeon MD Cosigner Signature (If Indicated): Date CC: Joel Cruz MD PROGRESS Observed: 04/16/2018 Status: COMPLETED Source: [place] 1:26 PM [facility] REPOSITORY HNO ID: [id number] Author: Joseline Cassidy Ma Service: (none) Author [...] severely ill: Yes Patient denies history of Guillain-W[place] Syndrome (a severe paralytic illness): Yes Tdap Adacel injection was given without incident. See immunizations for details of immunizations administered today. VIS sheet provided: Yes Provider Angelique was present in office at time of injection. Joseline Cassidy Ma PROGRESS Observed: 03/20/2018 Status: COMPLETED Source: [place] 10:14 AM [facility] REPOSITORY HNO ID: [id number] Author: Kofi Romero Service: (none) Author Type: [...] AND DIFFERENTIAL Collected: 03/05/2018 Status: F Source: [place] 3:06 PM [facility] REPOSITORY TYPE CODE TESTS RESULT OUT [...] k/uL Abs Lymph 1.39 LAB AMONO % [place]% 7.0 LAB AAMONO <0.87 k/uL Abs [place] 0.65 LAB AEOS % Eosin% 1.7 LAB AAEOS <0.46 k/uL Abs Eosin 0.16 LAB ABASO % Baso% 0.2 LAB AABASO <0.11 k/uL Abs Baso <0.03 LAB AUNRBC 0 /100 WBC NRBCs 0.0 LAB ABNRBC <0.01 k/uL Absolute nRBC <0.01 LAB DTYP DTYPE Auto Diff Performed By: #### CBCDIF #### [facility] Laboratories [address] [place], [place] [address] 50G, 1HR GEST. Collected: 03/05/2018 Status: F [facility] TYPE CODE TESTS RESULT OUT OF REFERENCE UNITS RANGE LAB GLUP 74-134 mg/dL Glucose 117 Screen, Preg Result Comment: [place] Congress of Obstetricians and Gynecologists (Yolanda/Adriana) guidelines state a gestational diabetes mellitus positive screen is made, in women not previously diagnosed with overt diabetes, when the 1 hr plasma glucose level is equal to or above 140 mg/dL. The [facility] Bottle Cleaner and [facility] [place] recommends a 135 mg/dL cutoff. Performed By: #### GLTGST #### [facility] Laboratories [address] [place], [place] [address] PROGRESS Observed: 03/05/2018 Status: COMPLETED Source: [place] 2:01 PM [facility] REPOSITORY HNO ID: [id number] Author: [place]eline Cassidy Ma Service: (none) Author Type: (none) Type: Progress Notes Filed: 03/05/2018 2:50 PM Note Text: 32 year old female here for INACTIVATED INFLUENZA VACCINE. 3632-6466 Season Patient is identified by name and date of : Yes [] CONTRAINDICATIONS color enhanced section Age less than 6 months? No Allergy to eggs, chicken, chicken feathers, or chicken dander? No Allergy to thimerosal (a preservative) or formaldehyde, gelatin? No History of severe reaction to any vaccine component or a previous dose of influenza vaccination? No History of Guillain-Waukes[place] Syndrome within 6 weeks after a previous [...] sheet given? Yes See immunization activity in [facility] for details of immunizations adminstered today. Patient age: [age] year old For The 9573-0741 Flu Season 6-35 months old: Fluzone 0.25 [...] time. 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 Sincerely, Cara Aldridge MD PROGRESS Observed: 01/13/2018 Status: COMPLETED Source: [place] 9:37 AM [facility] REPOSITORY HNO ID: [id number] Author: Kofi Romero Service: (none) Author Type: [...] indicated PROGRESS Observed: 12/30/2017 Status: COMPLETED Source: [place] 10:03 AM [facility] REPOSITORY [facility] ID: [id number] Author: Meredith Hardy (Cns) Service: (none) Author [...] . She had sleep study completed at [facility] on December 19, 2017, report per [...] (MISSED AB 1ST TRIMESTER) - IUD INSERTION (COMPENSATION ADJUSTER DEPT)_*[place] 04/11/07 Braulio, marybeth - PAST SURGICAL [...] the need for systemic opioids methotrexate suppressed OPERATING ENGINEER and respiratory function should be used.-(Up to [...] and agreed with the plan. Meredith Hardy APRN.OPERATING ENGINEER CNOV Observed: 12/30/2017 Status: COMPLETED Source: [place] 9:40 AM [facility] REPOSITORY Office Visit (INTMWS) MELVINA LUCIO ([id number]) 1985 F Date Time Provider Department 12/30/17 [...] . She had sleep study completed at [facility] on December 19, 2017, report per [...] (MISSED AB 1ST TRIMESTER) - IUD INSERTION (COMPENSATION ADJUSTER DEPT)_*FL 04/11/07 marybeth Ramsey - PAST SURGICAL [...] setting of 14 cm H2O using a [employer] FFMof medium size, EPR of 3, heated [...] the need for systemic opioids methotrexate suppressed OPERATING ENGINEER and respiratory function should be used.-(Up to [...] and agreed with the plan. Meredith Hardy APRN.OPERATING ENGINEER Referring Provider: SELF [200] Allergies As of Date: 12/30/2017 (No Known Allergies) Date Reviewed: 12/30/2017 Reviewed by: Cecily Mcnair LPN - Fully Assessed Reason for Visit: Results - Sleep Study [3564] Primary Visit Diagnosis:ABHINAV (obstructive sleep apnea) [G47.33] Other Visit Diagnosis:16 weeks gestation of [Z3A.16] Order(s):CONSULT TO SLEEP MEDICINE - ADULT [1480524] Order #: [id number]: 1 Prescriptions as of 12/30/2017 Sig: PROMETHAZINE 12.5 MG TABLET Take 1 tablet by mouth every * ORAL Take by mouth. Problem List As Of Date 12/30/2017 Noted Resolved SUPERVIS NORMAL 1ST PREG [Z34.00] INVALID [facility] [O09.899] INVALID FOR*06/16/2007 PAP [...] SCRN SECOND Collected: 12/17/2017 Status: F Source: [facility] PATIENTS ONLY 9:46 AM [facility] [...] Dn Snyd LAB SE2STS SE2 Scr Rsk 1:70385 Trsmy 13 LAB SE2STR SE2 Scr Rsk <1:25492 Trsmy18 LAB SE2SON SE2 Scr Rsk 1:7600 ONTD LAB SE2RS View Seq Scrn results in Second Trim Scanned Documents link when available. LAB SEQLRV SEQ Staff Reviewed by Review Phong Cutler MD, PhD ([id number]) Performed By: #### SEQL2 #### [facility] [employer] [address] [place], [place] [address] SEQUENT SCRN FIRST Collected: 11/18/2017 Status: F Source: [place] [facility] PATIENTS ONLY 10:19 AM [facility] [place] REPOSITORY TYPE CODE TESTS RESULT OUT OF REFERENCE UNITS RANGE LAB SE1PAP MoM 0.56 SE1 IVY A LAB SE1HCG MoM 1.26 SE1 hCG LAB SE1INT Final result pending second Final trimester SE1 result pending sample Interp second trimester sample LAB SE1SDN SE1 Scrn 1:1100 Rsk Dn Synd LAB SE1ADN 1:310 SE1 Age Rsk Dn Synd LAB SE1STR SE1 Scr <1:88400 Rsk Trsmy18 LAB SE1ATR SE1 Age 1:1400 Rsk Trsmy18 LAB SE1RS View Seq Scrn results in First Trim Scanned Documents link when available. LAB SEQLRV SEQ Staff Reviewed by Review Phong Cutler MD, PhD ([id number]) Performed By: #### SEQL1 #### [facility] [employer] [address] [place], [place] [address] PROGRESS Observed: 11/18/2017 Status: COMPLETED Source: [place] 9:49 AM [facility] REPOSITORY HNO ID: [id number] Author: Truman Armas Service: (none) Author Type: Physician Type: Progress Notes Filed: 11/18/2017 9:51 AM Note Text: Please see ultrasound report for details of this visit. Truman Armas M.D. PROGRESS Observed: 11/01/2017 Status: COMPLETED Source: [facility] 1:01 PM [facility] REPOSITORY HNO ID: [id number] Author: Joel Cruz Service: (none) Author Type: [...] (MISSED AB 1ST TRIMESTER) - IUD INSERTION (COMPENSATION ADJUSTER DEPT)_*FL 04/11/07 Mirena, removed - PAST SURGICAL [...] children: 1 Occupational History 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 [employer]* Social History Main Topics Smoking status: Former Smoker Packs/day: 0.50 Years: 10.00 Types: Cigarettes Quit date: 09/26/2017 Smokeless tobacco: Never Used Alcohol use: No Drug use: No Sexual activity: Yes Partners with: Male Social History Narrative Merged History Encounter Single, 1 child Weston, age 6 in 2015 Getting 5-15 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 32 year old lady here to be [...] counseling and/or coordinating care for the patient. Padp-is-mwbc time was 30 minutes. 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 32 year old lady here to be [...] counseling and/or coordinating care for the patient. Sfkg-hm-eqxr time was 30 minutes. Joel Cruz MD Referring Provider: JUSTIN ALEMAN [[id number]] Allergies As of Date: 11/01/2017 (No Known [...] 11/12/17 PROGRESS Observed: 10/30/2017 Status: COMPLETED Source: [facility] 4:09 PM [facility] REPOSITORY HNO ID: [id number] Author: Bebe Cuevas) Tasha Service: (none) Author Type: Nurse Practitioner Type: Progress Notes Filed: 10/30/2017 4:36 PM Note Text: Operating Engineer offered: Patient declines. Melvina Lucio is [...] (MISSED AB 1ST TRIMESTER) - IUD INSERTION (COMPENSATION ADJUSTER DEPT)_*FL 04/11/07 Mirena, removed - PAST SURGICAL [...] children: 1 Occupational History 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 [employer]* Social History Main Topics Smoking status: Former Smoker Packs/day: 0.50 Years: 10.00 Types: Cigarettes Quit date: 09/26/2017 Smokeless tobacco: Never Used Alcohol use: No Drug use: No Sexual activity: Yes Partners with: Male Social History Narrative Merged History Encounter Single, 1 child Weston, age 6 in 2014 Getting 5-15 Works at [employer] on [employer], [facility] Current Outpatient Prescriptions: promethazine (PHENERGAN) 12.5 mg [...] external genitalia normal, normal Bartholin's glands, urethra, [place]'s glands, no cervical lesions, good vaginal support, [...] APRN.CNP CNOV Observed: 10/30/2017 Status: COMPLETED Source: [place] 4:00 PM [facility] REPOSITORY Office Visit (WOOB) MELVINA LUCIO ([id number]) 1985 F Date Time Provider Department 10/30/17 4:00 PM BEBE CORDOVA (CARMENCITA) WOOB During your visit today, we recorded the following information about you: Blood pressure Weight 100/68 104.3 kg Bebe Cordova APRN.CNP 10/30/2017 4:36 PM Signed Operating Engineer offered: Patient declines. 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 Topics Smoking status: Former Smoker Packs/day: 0.50 Years: 10.00 Types: Cigarettes Quit date: 09/26/2017 Smokeless tobacco: Never Used Alcohol use: No Drug use: No Sexual activity: Yes Partners with: Male Social History Narrative Merged History Encounter Single, 1 child Weston, age 6 in 2014 Getting 5-15 Works at [employer] on [employer] Current Outpatient Prescriptions: promethazine (PHENERGAN) 12.5 mg [...] external genitalia normal, normal Bartholin's glands, urethra, [place]'s glands, no cervical lesions, good vaginal support, [...] 1,2/VZV AMP MOLECULAR DETECT [SQHSVVZV] Order #: [id number] Prescriptions as of 10/30/2017 Sig: PROMETHAZINE 12.5 MG TABLET Take 1 tablet by mouth every * ORAL Take by mouth. Problem List As Of Date 10/30/2017 Noted Resolved SUPERVIS NORMAL 1ST PREG [Z34.00] INVALID FOR*[facility]16/[facility] [O09.899] INVALID FOR*06/16/2007 PAP [...] HSV1,2/VZV AMPLIF Collected: 10/30/2017 Status: F Source: [facility] 4:17 AM [facility] REPOSITORY TYPE CODE TESTS RESULT OUT [...] Molecular Detection. Performed By: #### HSVVZV #### [facility] [address] [address] TOXICOLOGY SCREEN,UR Collected: 10/18/2017 Status: F Source: [facility] 2:45 PM [facility] REPOSITORY TYPE CODE TESTS RESULT OUT [...] the same speci men through Client Services ([phone]) if contacted within 48 hours of initial testing. [1]Substance Abuse and Mental Health Services Administration (2012). Clinical Drug Testing in Primary Care Technical Assistance Publication Series 32. Department of Health and Human Services, [place], p.10. These tests were developed and their performance characteristics determined by [facility]'s [facility] [place] (RT PLMI). They have not been cleared or a pproved by the FDA. [facility] is regulated under CLIA as qualified to perform high complexity testing. These tests are used for clinical purposes. They should not be regarded as investigational or for research. Performed By: #### UTOX2 #### [address] [place] [place] [address] Observed: 10/18/2017 Status: F Source: [place] URINE CULTURE 2:45 PM [facility] REPOSITORY Sp. Request/Comment: - Specimen received in preservative Culture Result - <10,000 CFU/ml Normal urogenital dewey Performed By: #### URCUL #### [address] [address] CBC Collected: 10/18/2017 Status: F Source: [facility] 11:25 AM [facility] REPOSITORY TYPE CODE TESTS RESULT OUT [...] #### CBC, RUBIGG, SYPHGX, HBSAG, HIV12C #### [address] [place], [place] [address] RUBELLA IGG ANTIBODY Collected: 10/18/2017 Status: F Source: [facility] 11:25 AM [facility] REPOSITORY TYPE CODE TESTS RESULT OUT [...] #### CBC, RUBIGG, SYPHGX, HBSAG, HIV12C #### [address] [address] SYPHILIS IGG WITH Collected: 10/18/2017 Status: F Source: [facility] 11:25 AM [facility] REPOSITORY TYPE CODE TESTS RESULT OUT [...] #### CBC, RUBIGG, SYPHGX, HBSAG, HIV12C #### [address] [address] HEPATITIS B SURF. AG Collected: 10/18/2017 Status: F Source: [facility] 11:25 AM [facility] REPOSITORY TYPE CODE TESTS RESULT OUT OF REFERENCE UNITS RANGE LAB HBSAG Negative Hepatitis B Negative Surf. Ag Performed By: #### CBC, RUBIGG, SYPHGX, HBSAG, HIV12C #### [address] [place] [address] HIV 12 COMBO (AG/AB) Collected: 10/18/2017 Status: F Source: [facility] 11:25 AM [facility] REPOSITORY TYPE CODE TESTS RESULT OUT OF REFERENCE UNITS RANGE LAB HVAGAB Non Reactive HIV Non Reactive 12 Ag/Ab Result Comment: (NOTE) HIV Information: [place] Rev. Code 3701.243(E): This information has been [...] #### CBC, RUBIGG, SYPHGX, HBSAG, HIV12C #### [facility] [employer] [address] [address] 50G, 1HR GEST. Collected: 10/18/2017 Status: F Source: [place] GSCRN 11:25 AM [facility] REPOSITORY TYPE CODE TESTS RESULT OUT OF REFERENCE UNITS RANGE LAB GLUP 74-134 mg/dL Low Glucose 73 Screen, Preg Result Comment: [place] Congress of Obstetricians and Gynecologists (Guerrero/Coustan) guidelines state a gestational diabetes mellitus positive screen is made, in women not previously diagnosed with overt diabetes, when the 1 hr plasma glucose level is equal to or above 140 mg/dL. The [facility] Bottle Cleaner and [facility] [place] recommends a 135 mg/dL cutoff. Performed By: #### GLTGST #### [address] [address] TYPE AND SCR,PRENATL Collected: 10/18/2017 Status: F Source: [place] 11:25 AM [facility] REPOSITORY TYPE CODE TESTS RESULT OUT OF REFERENCE UNITS RANGE LAB %ABR B ABO/RH(D) POSITIVE LAB % Antibody NEG Screen Performed By: #### TSPN #### [address] [address] HGB EVAL CASCADE Collected: 10/18/2017 Status: F Source: [place] 11:25 AM [facility] REPOSITORY TYPE CODE TESTS RESULT OUT [...] Staff Review Reviewed by Suzanne Francisco [place] ([id number]) LAB RBC 3.90-5. m/uL 20 RBC 4.25 LAB HGB 11.5-15 g/dL .5 Hemoglobin 13.7 LAB HCT 36.0-46 % .0 Hematocrit 39.9 LAB MCV 80.0-10 fL 0.0 MCV 93.9 LAB MCH 26.0-34 pG .0 MCH 32.2 LAB MCHC 30.5-36 g/dL .0 MCHC 34.3 LAB RDWCV 11.5-15 % .0 RDW-CV 11.9 Performed By: #### HBEVAL #### [address] [address] GC/CHLAMYDIA AMPLIF Collected: 10/18/2017 Status: F Source: [facility] 10:30 AM [facility] REPOSITORY TYPE CODE TESTS RESULT OUT OF REFERENCE UNITS RANGE LAB GCCTSR GC/Chlam Amp Cervix Source LAB GCAMPL GC Negative Amplification for Neisseria gonorrhoeae by amplification. LAB CLAMPL Chlamydia Negative Amplif for Chlamydia trachomatis by amplification. Performed By: #### GCCT #### [address] [id number] PROGRESS Observed: 10/18/2017 Status: COMPLETED Source: [facility] 10:09 AM [facility] REPOSITORY HNO ID: [id number] Author: Cara Felton Service: (none) Author Type: [...] No Multivitamin with Folic acid: Yes Occupation: [employer] or heritage: No Would refuse blood transfusion if medically necessary: No No weight on file for this encounter. Patient BMI over 30? Yes, Consult to [facility] Well Moms ordered Marital Status: Partner: Name: Sandrita Lucio Age: 39 Occupation: [employer] Gender: male History of STDs: None PAST MEDICAL HISTORY Diagnosis Date - Abnormal Pap smear of cervix - goiter - Miscarriage 2016 - Miscarriage 2015 - Sleep apnea PAST SURGICAL HISTORY Procedure Laterality Date - DANDC (MISSED AB 1ST TRIMESTER) - IUD INSERTION (COMPENSATION ADJUSTER DEPT)_*FL 04/11/07 Mirena, removed - PAST SURGICAL [...] MD PROGRESS Observed: 10/03/2017 Status: COMPLETED Source: [facility] 4:45 PM [facility] REPOSITORY HNO ID: [id number] Author: Dayan Schilling RN Service: (none) Author [...] None CNNURSE Observed: 10/03/2017 Status: COMPLETED Source: [facility] 3:00 PM [facility] REPOSITORY Nurse Visit (WOOB) MELVINA LUCIO ([id number]) 1985 F Date Time Provider Department 10/03/17 3:00 PM NURSE BEBEOT [facility] GILDA SON During your visit today, we recorded the following information about you: Last Period 08/22/17 Dayan Schilling RN 10/03/2017 3:32 PM Signed SEQUENTIAL SCREENINGS The [facility] offers sequential screenings for women who are [...] It will require an appointment with our trace evidence technician. This is not an ultrasound performed [...] the above symptoms, contact our office at [phone] and ask to speak with a nurse. After hours, you can call doctors registry at [phone] OR call [facility] at [phone] and ask to have the doctor questioned documents examiner paged. If you consider this an emergency, [...] treatment is particularly effective in young patients-the [facility] Cord Blood Bank reports a 70 percent [...] issues. What do the experts say? The [place] Academy [employer] encourages philanthropic blood banking [...] baby needs at the moment. The nurse, log processor operator, or physician will then label the samples, [...] AHEAD OF TIME! Public cord-blood lucia--DONATION: [employer] [phone] [facility]'s Placental Blood Program, [facility] Umbilical Cord Blood Bank, Private cord-blood lucia--SAVING FOR YOUR OWN USE: Cryo[employer]Cell thereNow, (I think this is the least expensive) [employer] [phone] [employer], (700) LIF[employer]ANK [place] Cord Blood Bank, [phone] 700-CORD Cells, [phone] [place] Cryobank, Cord Blood Registry, (517) [facility]ORDBLSpring[facility] Medical Centerrd, An Internet search may provide [...] requested diagnostic testing [Z01.89] Order(s):DOUG PT ED BEAUTY CULTURE TEACHER [[id number]] Order #: [id number]: 1 FUTURE DOUG PT ED BEAUTY CULTURE TEACHER [[id number]] Order #: [id number]. #:[id number] Prescriptions as of 10/03/2017 Sig: ORAL [...] instructions from your clinician: SEQUENTIAL SCREENINGS The [facility] offers sequential screenings for women who are [...] It will require an appointment with our trace evidence technician. This is not an ultrasound performed [...] the above symptoms, contact our office at [phone] and ask to speak with a nurse. After hours, you can call doctors [facility] at [phone] OR call [facility] at [phone] and ask to have the doctor questioned documents examiner paged. If you consider this an emergency, [...] is particularly effective in young patients- the [facility] Cord Blood Bank reports a 70 percent [...] issues. What do the experts say? The [place] Academy of Pediatrics encourages philanthropic blood banking [...] baby needs at the moment. The nurse, log processor operator, or physician will then label the samples, [...] AHEAD OF TIME! Public cord-blood lucia--DONATION: [employer] [phone] [facility]'s Placental Blood Program, [facility] Umbilical Cord Blood Bank, Private cord-blood lucia--SAVING FOR YOUR OWN USE: Cryo[employer]Cell thereNow, (I think this is the least expensive) [employer] [phone] [employer], (775) [employer] [place] Cord Blood Bank, [phone] 700-CORD Cells, [phone] [place] Cryobank, Cord Blood Registry, (196) CORDBLOOD [facility], An Internet search may provide you with additional listings. Disposition: Return in about 2 weeks (around 10/18/2017) for New OB with Dr Aldridge. Follow-up and Disposition History Recorded Encounter Status:Closed by DAYAN SCHILLING RN on 10/03/17 MARY Observed: 10/03/2017 Status: COMPLETED Source: [facility] 9:00 AM [facility] REPOSITORY Office Visit (WOOB) MELVINA LUCIO ([id number]) 1985 F Date Time Provider Department 10/03/17 [...] HISTORY Procedure Laterality Date - IUD INSERTION (COMPENSATION ADJUSTER DEPT)_*FL 04/11/07 Mirena, removed - PAST SURGICAL [...] children: 1 Occupational History 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 [employer]* Social History Main Topics Smoking status: Current Every Day Smoker Packs/day: 0.50 Years: 10.00 Types: Cigarettes Smokeless status: Never Used Alcohol use: No Drug use: No Sexual activity: Yes Partners with: Male Social History Narrative Merged History Encounter Single, 1 child Weston, age 6 in 2014 Getting 5-15 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, 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 [...] 10/03/17 PROGRESS Observed: 10/03/2017 Status: COMPLETED Source: [facility] 8:50 AM [facility] [place] REPOSITORY HNO ID: [id number] Author: Justin Aleman Service: (none) Author Type: [...] HISTORY Procedure Laterality Date - IUD INSERTION (COMPENSATION ADJUSTER DEPT)_*FL 04/11/07 Mirena, removed - PAST SURGICAL [...] 1 Occupational History 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 [employer]* [employer]* Social History Main Topics Smoking status: Current Every Day Smoker Packs/day: 0.50 Years: 10.00 Types: Cigarettes Smokeless status: Never Used Alcohol use: No Drug use: No Sexual activity: Yes Partners with: Male Social History Narrative Merged History Encounter Single, 1 child Weston, age 6 in 2014 Getting 5-15 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, 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 [...] QUANTITATIVE BL Collected: 10/02/2017 Status: F Source: [facility] 4:46 PM [facility] REPOSITORY TYPE CODE TESTS RESULT OUT OF REFERENCE UNITS RANGE LAB HCGQT <5.0 mU/mL HCG, High Quantitative Bl 413[address].0 Result Comment: QUANTITATIVE HCG NORMAL RANGES Weeks of Gestation (Weeks Since LMP) 3 Weeks (5.8-71.2 mIU/mL) 4 Weeks (9.5-750 mIU/mL) 5 Weeks (217-7138 mIU/mL) 6 Weeks (158-02356 mIU/mL) 7 Weeks (3697-942075 mIU/mL) 8 Weeks (61829-763955 mIU/mL) 9 Weeks (16702-396646 mIU/mL) 10 Weeks (25218-264518 mIU/mL) 12 Weeks (66215-324378 mIU/mL) Referenced to 4th IS of [facility] Performed By: #### HCGQT #### [facility] Laboratories [address] [place], [place] [address] HCG, QUANTITATIVE BL Collected: 09/30/2017 Status: F Source: [place] 4:46 PM [facility] REPOSITORY TYPE CODE TESTS RESULT OUT OF REFERENCE UNITS RANGE LAB HCGQT <5.0 mU/mL HCG, High Quantitative Bl 08053.0 Result Comment: QUANTITATIVE HCG NORMAL RANGES Weeks of Gestation (Weeks Since LMP) 3 Weeks (5.8-71.2 mIU/mL) 4 Weeks (9.5-750 mIU/mL) 5 Weeks (217-7138 mIU/mL) 6 Weeks (158-83049 mIU/mL) 7 Weeks (3697-823241 mIU/mL) 8 Weeks (20251-792465 mIU/mL) 9 Weeks (95060-620592 mIU/mL) 10 Weeks (41355-421869 mIU/mL) 12 Weeks (61289-756754 mIU/mL) Referenced to 4th IS of [employer] Performed By: #### HCGQT #### [facility] [address] [address] ALLERGIES ALLERGIES DATE TYPE / CODE NAME / CODE REACTION SEVERITY SOURCE 05/24/2018 Drug No Known Unknown [facility] Allergy/416 Allergies/L64331 Hospital 418229(SNOM 0388(RXNORM) Repository ED CT) Drug NO KNOWN [facility] Class/15093 ALLERGIES [place] 1003(SNOMED Repository CT) ENCOUNTERS ENCOUNTERS ADMIT/DISCHARGE ACCOUNT ADMITTING ENCOUNTER LOCATION SOURCE NUMBER CLASS 06/11/2018/06/11/19 [id number] Ambulatory [place] ing:WPOUTRoom Repository : WPOLRM 05/29/2018/05/29/20 [id number] Ambulatory [address] ing:WPOUTRoom Repository : WPOL 05/29/2018/06/05/20 [id number] Ambulatory [address] Repository 05/24/2018/05/27/20 [id number] [facility] Inpatient [place] 18 o[address], [facility] ing:WPRoom: Repository QP418Loo: 1 05/24/2018 [id number] [facility] ing:LABSPEC Repository 05/23/2018/05/23/20 [id number] Ambulatory [address] ing:WPOUTRoom Repository : [id number] 05/23/2018/05/27/20 [id number] Ambulatory [address] Repository 05/19/2018/05/20/20 [id number] Ambulatory [address] Repository 05/15/2018/05/16/20 [id number] Ambulatory [address] Repository 05/12/2018/05/13/20 [id number] Ambulatory [address] Repository 05/07/2018/05/09/20 [id number] Ambulatory [address] Repository 05/06/2018/05/06/20 [id number] Ambulatory [place] ing:WPOUTRoom Repository : WP011 04/29/2018/04/30/20 [id number] Ambulatory [place] [facility] [address] [place] Repository 04/16/2018/04/18/20 [id number] Ambulatory [place] [facility] [address] [place] Repository 04/02/2018/04/03/20 [id number] Ambulatory [place] [facility] [address] [place] Repository 03/19/2018/03/20/20 [id number] Ambulatory [place] [facility] [address] [place] Repository 03/19/2018/03/21/20 [id number] Ambulatory [place] [facility] [address] [place] Repository 03/05/2018/03/05/20 [id number] Ambulatory [place] [facility] [address] [place] Repository 03/05/2018/03/06/20 [id number] Ambulatory [place] [facility] [address] [place] Repository 02/12/2018/02/15/20 [id number] Ambulatory [place] [facility] [address] [place] Repository 01/13/2018/01/15/20 [id number] Ambulatory [place] [facility] [address] [place] Repository 01/13/2018/01/15/20 [id number] Ambulatory [place] [facility] [address] [place] Repository 12/30/2017/01/01/20 [id number] Ambulatory [place] [facility] [address] [place] Repository 12/19/2017 [id number] Ambulatory [facility] ing:SL Repository 12/17/2017/12/18/19 [id number] Ambulatory [place] [facility] [address] [place] Repository 12/17/2017/12/19/19 [id number] Ambulatory [place] [facility] [address] [place] Repository 11/18/2017 [id number] Ambulatory [facility] [place] Repository 11/18/2017/11/21/19 [id number] Ambulatory [place] [facility] [address] [place] Repository 11/18/2017/11/21/19 [id number] Ambulatory [place] [facility] [address] [place] Repository 11/01/2017/11/13/19 [id number] Ambulatory [place] [facility] [address] [place] Repository 10/30/2017/11/02/19 [id number] Ambulatory [place] [facility] [address] [place] Repository 10/18/2017/10/19/19 [id number] Ambulatory [place] [facility] [address] [place] Repository 10/18/2017/10/23/19 [id number] Ambulatory [place] [facility] [address] [place] Repository 10/03/2017/10/08/19 [id number] Ambulatory [address] Repository 10/03/2017/10/08/19 [id number] Ambulatory [address] Repository 10/02/2017 [id number] Ambulatory [facility] Repository 09/30/2017 [id number] [facility] Repository PAYERS PAYERS ENCOUNTER GUARANTOR PAYER SUBSCRIBER SOURCE 06/11/2018 MELVINA A [id number] Primary MELVINA A [place] Insurance[place] [id number] [address]Spt: (330) Number: Repository [phone] () [id number] Date:8212-03-34NC[address] [address]HT: 06/11/2018 Secondary NOT GIVENUNK [place] Insurance:SELF PAY [facility] Number: Effective Repository Date:2018-06-11 05/29/2018 MELVINA A [id number] Primary MELVINA A [place] [address] [place] Insurance:MEDICAL REEDDOB[place] [facility] [id number] [address]Gsz: (330) Number: Repository [phone] () [id number] Date:[id number] [address]AA: 05/29/2018 Secondary NOT GIVENUNK [place] Insurance:SELF PAY [facility] Number: Effective Repository Date:2018-05-29 05/24/2018 MELVINA A [id number] Primary MELVINA A [place] Insurance:MEDICAL REEDDOB[place] [facility] [id number] [address]Jqt: (330) Number: Repository [phone] () [id number] Date:[id number] [address]RI: 05/24/2018 Secondary NOT GIVENUNK [place] Insurance:SELF PAY [facility] Number: Effective Repository Date:2018-05-24 05/24/2018 MELVINA A [id number] Primary MELVINA A [place] Insurance:MEDICAL REEDDOB[place] [facility] [id number] [address]Nar: 330) Number: Repository [phone] () [id number] Date:1499-51-63PW [address] [address]YY: 05/24/2018 Secondary NOT GIVENUNK [place] Insurance:SELF PAY [facility] Number: Effective Repository Date:2018-05-24 05/23/2018 MELVINA A [id number] Primary MELVINA A [place] Insurance:MEDICAL REEDDOB[place] [facility] [id number] [address]Ufn: (330) Number: Repository [phone] () [id number] Date:[id number] [address]RH: 05/23/2018 Secondary NOT GIVENUNK [place] Insurance:SELF PAY [facility] Number: Effective Repository Date:2018-05-23 05/06/2018 MELVINA A [id number] Primary Insurance:[facility] MELVINA A Sherin [address] [place] [facility] REEDDOB: [facility] Number: [id number] [address]Pmf: (238) [id number] Repository [phone] () Date:6561-49-86TYVADV [address], [place] [address]YW: 05/06/2018 Secondary MELVINA A Sherin Insurance:MEDICAL REEDDOB: [facility] [id number] Hospital Number: Repository [id number] Date:9717-23-11[place] [id number]: 05/06/2018 Tertiary NOT GIVENUNK Sherin Insurance:SELF PAY [facility] Number: Effective Repository Date:2018-05-06 12/19/2017 MELVINA A [id number] Primary MELVINA A [place] [address] Insurance:[place] [facility] [id number] [facility] [id number]: ([phone]) Number: Repository [phone] [id number] Date:6535-22-41[address] [id number]: 12/19/2017 Secondary NOT GIVENUNK Sherin Insurance:SELF PAY [facility] Number: Effective Repository Date:2017-11-21
== END ==
PROVIDERS: Family Provider Internal Medicine; PCP Internal Medicine; Referring Provider Obstetrics & Gynecology; Visit Provider Obstetrics & Gynecology
DX: O26.93 Pregnancy related conditions, unspecified, third trimester (principal); R03.0 Elevated blood-pressure reading, without diagnosis of hypertension; Z3A.39 39 weeks gestation of pregnancy
CPT/HCPCS: 82570; 84156

== ENCOUNTER 2018-05-24 18:35 | Inpatient (IN) | payer OTHER, SELFPAY ==
[2018-05-23 12:25] VITALS: BMI 42.0
--- NOTE | 2018-05-24 18:47 | PCM.HP.OB ---
History Date of Admission: 05/24/18 Final JASMIN: 05/29/18 Final JASMIN Source: US <20 weeks Gestational age: 39 Weeks and 2 Days History of this : This is a 32 year-old, G [id number] @ 39.2 wks with preeclampsia without severe features- had elevated BP in office yesterday x 1 sent to L&D for evaluation- normal labs and BP normal range- 24hr urine results elevated protein 418mg. pt was called and set up for IOL today for PreE. pt at this time is asymptomatic Allergies No Known Allergies Allergy (Verified 05/23/18 12:27) Home Medications: Home Medications Vits96/Iron Fum/Folic [ Tablet] 1 each PO DAILY 05/06/18 Acetaminophen [Tylenol Extra Strength] 500 - 1,000 mg PO Q6H PRN PRN 05/23/18 Calcium Carbonate [Tums] 500 mg PO BIDCM 05/23/18 proMETHazine tablet [Phenergan tablet] 25 mg PO Q6H PRN PRN 05/23/18 Smoking Status: Former smoker Alcohol: None Number of Fetus(es): 1 History Past Pregnancies: Past Pregnancies Delivery Date Name GA/Weeks Outcome Route Weight Infant Gender Labor Length Anesthesia Delivery Location Provider FOB Labs: GBS neg, HEPB neg, HIV neg, Syphilis neg, RUB imm, Expected Delivery Method: Spontaneous Vaginal Review of Systems Eyes: Denies: Blurred vision, Double vision HEENT: Denies: Head Aches Gastrointestinal: Denies: Abdominal Pain Physical Exam General: Alert, Oriented x3 Abdomen: Soft, Non Tender, Gravid Neurological: Cranial nerves II-XII grossly intact FLOOR STEWARD/STEWARDESS: Normal external genitalia Estimated gestational size: Appropriate for gestational size Presentation: Cephalic Cervix Dilation (cm): 3 Station: -3 Effacement (%): 70 Assessment/Plan This is a 32 year-old, G 4P1 @ 39.2 wks, pre Eclampsia w/o severe features 1) admit to L&D 2) monitor fhr/toco 3) monitor VS 4) Labs done yesterday- will not repeat today 5) LIANG/PIT for IOL- liang bulb placed- 6) epidural if requested for pain mgmt
--- NOTE | 2018-05-24 18:51 | HP.PCM_ITS ---
History Date of Admission: 05/24/18 Final JASMIN: 05/29/18 Final JASMIN Source: US <20 weeks Gestational age: 39 Weeks and 2 Days History of this : This is a 32 year-old, G [id number] @ 39.2 wks with preeclampsia without severe features- had elevated BP in office yesterday x 1 sent to L&D for evaluation- normal labs and BP normal range- 24hr urine results elevated protein 418mg. pt was called and set up for IOL today for PreE. pt at this time is asymptomatic Allergies No Known Allergies Allergy (Verified 05/23/18 12:27) Home Medications: Home Medications Vits96/Iron Fum/Folic [ Tablet] 1 each PO DAILY 05/06/18 Acetaminophen [Tylenol Extra Strength] 500 - 1,000 mg PO Q6H PRN PRN 05/23/18 Calcium Carbonate [Tums] 500 mg PO BIDCM 05/23/18 proMETHazine tablet [Phenergan tablet] 25 mg PO Q6H PRN PRN 05/23/18 Smoking Status: Former smoker Alcohol: None Number of Fetus(es): 1 History Past Pregnancies: Past Pregnancies Delivery Date Name GA/Weeks Outcome Route Weight Infant Gender Labor Length Anesthesia Delivery Location Provider FOB Labs: GBS neg, HEPB neg, HIV neg, Syphilis neg, RUB imm, Expected Delivery Method: Spontaneous Vaginal Review of Systems Eyes: Denies: Blurred vision, Double vision HEENT: Denies: Head Aches Gastrointestinal: Denies: Abdominal Pain Physical Exam General: Alert, Oriented x3 Abdomen: Soft, Non Tender, Gravid Neurological: Cranial nerves II-XII grossly intact SMALL ORDER CUTTER: Normal external genitalia Estimated gestational size: Appropriate for gestational size Presentation: Cephalic Cervix Dilation (cm): 3 Station: -3 Effacement (%): 70 Assessment/Plan This is a 32 year-old, G 4P1 @ 39.2 wks, pre Eclampsia w/o severe features 1) admit to L&D 2) monitor fhr/toco 3) monitor VS 4) Labs done yesterday- will not repeat today 5) LIANG/PIT for IOL- liang bulb placed- 6) epidural if requested for pain mgmt
[2018-05-24 19:38] VITALS: BMI 42.1
[2018-05-24] MEDS: Lactated Ringers 1,000 ML 50 ML IV (20:02)
[2018-05-24] MEDS: 0.9% Normal Saline 100 ML IV.SOLN. INTRA-UTER (20:11)
[2018-05-24 20:24] LABS: Hematocrit 41.2 % (37-47); Hemoglobin 14.1 g/dl (12.0-15.0); Mean Corp Hgb Conc 34.2 g/gl (32-36); Mean Corpuscular Hgb 31.5 pg (27.0-32.0); Mean Corpuscular Volume 92.2 fL (81-99); Mean Platelet Vol. 11.3 fl (6.2-12.0); Platelet Count 238 K/mm3 (150-450); RBC Distribution Width CV 12.9 % (11.6-14.6); RBC Distribution Width SD 43.6 fl (35.1-43.9); Red Blood Count 4.47 M/mm3 (4.2-5.4); Scan Indicated on CBC? Y/N NO; White Blood Count 9.4 K/mm3 (4.4-11.0)
[2018-05-24] MEDS: Oxytocin 30 units/NS 500 ml 30 UNITS/500 ML IV.SOLN IV (20:51)
[2018-05-25] MEDS: Lactated Ringers 1,000 ML 50 ML IV ×2 (01:04→06:03)
--- NOTE | 2018-05-25 05:09 | PCM.PN.BLA ---
Progress Note pt seen at bedside- VE: /-2 AROM performed- clear fluid. epidural if requested. continue pitocin.
[2018-05-25] MEDS: Nalbuphine 10 MG/ML Ampul IV (05:12)
[2018-05-25] MEDS: Ondansetron 4 MG/2 ML Vial IV (06:36)
[2018-05-25] MEDS: fentaNYL-bupivacaine (epidural) 100 ML BAG EPIDURAL (07:40)
[2018-05-25] MEDS: proMETHazine 25 MG/ML Syringe IV (08:02)
[2018-05-25] MEDS: Oxytocin 30 units/NS 500 ml 30 UNITS/500 ML IV.SOLN 334 UNITS IV (10:46)
--- NOTE | 2018-05-25 10:56 | PCM.OB.VAG ---
Vaginal Delivery Maternal Presentation: Medically Indicated Induction Method of Induction: Pitocin, Serra Bulb Medical Reason for Induction: Preeclampsia, eclampsia Amniotic Membrane Rupture Type: Artificial Amniotic Fluid Description: Clear Final JASMIN: 05/29/18 Gestational age: 39 Weeks and 3 Days Date of Procedure: 05/25/18 Pre-Operative Diagnosis: Preeclampsia without severe features, term gestation Post-Operative Diagnosis: Same, live male infant Surgery/ Procedure Performed: Spontaneous Vaginal Delivery Type of Anesthesia: Epidural Description of Procedure: of live male born without complications- tight nucal x 1- delivered without reduction of nuchal. Infant vigorous at delivery, delayed cord clamping performed. Presentation: Vertex Placental Delivery Description: Spontaneous Placenta Disposition: [facility] Cord Vessel Description: 3 Vessels Nuchal Cord Compression: With compression Cord Entanglement: Around neck x 1, tight Drain: Serra to straight drain Estimated Blood Loss: 250 A gender: Male (1 minute): 8 (5 minute): 9 Episiotomy Description: None Laceration: Perineal Extension/lac, 2nd degree Medications given after delivery: IV Pitocin Complications: None
[2018-05-25] MEDS: Oxytocin 30 units/NS 500 ml 30 UNITS/500 ML IV.SOLN 167 UNITS IV (11:16)
[2018-05-25 13:50] VITALS: BP 123/77; PULSE 110; RESP 20; TEMP 36.9; O2SAT 98
[2018-05-25 16:20] VITALS: BP 136/70; PULSE 112; RESP 18; TEMP 36.2; O2SAT 96
[2018-05-25 20:00] VITALS: BP 105/69; PULSE 105; RESP 18; TEMP 37; O2SAT 97
[2018-05-25] MEDS: Acetaminophen 500 MG Tablet 1000 MG PO (21:07)
[2018-05-26 01:00] VITALS: BP 105/64; PULSE 90; RESP 16; TEMP 36.6; O2SAT 94
[2018-05-26] MEDS: Ibuprofen 600 MG Tablet PO ×2 (02:35→20:04)
[2018-05-26 04:35] VITALS: BP 97/60; PULSE 80; RESP 16; TEMP 36.6; O2SAT 98
[2018-05-26 10:00] VITALS: BP 115/69; PULSE 91; RESP 16; TEMP 36.2
[2018-05-26] MEDS: Acetaminophen 500 MG Tablet 1000 MG PO (11:03)
[2018-05-26] MEDS: Senna/Docusate Sodium 1 Tablet PO (11:05)
[2018-05-26 14:30] VITALS: BP 120/78; PULSE 97; RESP 16; TEMP 36.9; O2SAT 97
--- NOTE | 2018-05-26 17:18 | PCM.PN.OB ---
Subjective: Doing well. Ambulating and taking PO without difficulty. Voiding and passing flatus. Denies headache,visual changes, chest pain, SOB, leg pain, increased vaginal bleeding or clots. . Pain controlled. Planning D/C home tomorrow. - Physical Exam General: Alert, Oriented x3 HEENT: Atraumatic, Normocephalic Lungs: Clear to auscultation, Normal air movement, No rhonchi, No wheeze Cardiovascular: Regular rate, Regular Rhythm, No murmurs Abdomen: Soft, - - Fundus firm 2 below U. Extremities: No edema, - - Sven's negative Psych/Mental Status: Normal Affect, Appropriate Vital Signs Temp Pulse Resp BP Pulse Ox 98.4 F 97 16 120/78 97 05/26/18 14:30 05/26/18 14:30 05/26/18 14:30 05/26/18 14:30 05/26/18 14:30 Oxygen Delivery Method Room Air Weight: 277 lb 3.2 oz Body Mass Index (BMI) 42.1 Intake and Output for Last 24 Hours 05/24/18 05/25/18 05/26/18 23:59 23:59 23:59 Intake Total 4064 / 4064 Output Total 2900 / 2900 Balance 1164 / 1164 Medical Necessity - Tobacco Use Smoking Status: Former smoker Assessment/Plan A:PPD #1 P: 1) Routine care 2) Pain controlled 3) 4) D/C home tomorrow.
[2018-05-26 19:52] VITALS: BP 140/86; PULSE 99; RESP 16; TEMP 36.3; O2SAT 100
[2018-05-27 01:09] VITALS: BP 117/57; PULSE 89; RESP 16; TEMP 36.3; O2SAT 96
[2018-05-27 08:15] VITALS: BP 110/79; PULSE 93; RESP 20; TEMP 36.3; O2SAT 96
--- NOTE | 2018-05-27 08:36 | DCINST_ITS ---
Discharge Diet: No Restrictions Discharge Activity: May Drive, May Shower May resume sexual activity in: 4-6 weeks Weight Bearing Status: Weight bearing as tolerated Additional Instructions: If you experience any of the following, contact your healthcare provider. * Bleeding that soaks a pad every hour for 2 hours * Fever 100.4 or higher * Unrelieved incision or abdominal pain * Swelling, redness, discharge or bleeding from your incision or episiotomy site * Your incision begins to separate * Problems urinating (including inability to urinate or burning while urinating). * Visual changes * Severe headache * Flu-like symptoms * Pain or redness in one of both of your breasts * Pain, warmth, tenderness or swelling in your legs, especially the calf area * Frequent nausea and vomiting * Symptoms of depression or anxiety If you experience any of the following, call 911 or go to the nearest Emergency Room. * Chest pain * Problems breathing * Seizure activity * Partial or complete paralysis of a body part, slurred speech, weakness or drooping of the face, or a sudden inability to walk or hold your balance Allergies/Adverse Reactions: Allergies No Known Allergies Allergy (Verified 05/24/18 19:36) Medications to take at Discharge Vits96/Iron Fum/Folic [ Tablet] 1 each PO DAILY 05/06/18 Acetaminophen [Tylenol] 500 - 1,000 mg PO Q6H PRN PRN 05/23/18 Calcium Carbonate [Tums] 500 mg PO BIDCM 05/23/18 Primary Care Physician: Shital Cruz MD [Primary Care Provider] - Test Results: Test results from this visit will be discussed in further detail at your follow- up appointment, if applicable.
--- NOTE | 2018-05-27 08:36 | PCM.DCVAG ---
Discharge Diet: No Restrictions Discharge Activity: May Drive, May Shower May resume sexual activity in: 4-6 weeks Weight Bearing Status: Weight bearing as tolerated Additional Instructions: If you experience any of the following, contact your healthcare provider. Bleeding that soaks a pad every hour for 2 hours Fever 100.4 or higher Unrelieved incision or abdominal pain Swelling, redness, discharge or bleeding from your incision or episiotomy site Your incision begins to separate Problems urinating (including inability to urinate or burning while urinating). Visual changes Severe headache Flu-like symptoms Pain or redness in one of both of your breasts Pain, warmth, tenderness or swelling in your legs, especially the calf area Frequent nausea and vomiting Symptoms of depression or anxiety If you experience any of the following, call 911 or go to the nearest Emergency Room. Chest pain Problems breathing Seizure activity Partial or complete paralysis of a body part, slurred speech, weakness or drooping of the face, or a sudden inability to walk or hold your balance Allergies/Adverse Reactions: Allergies No Known Allergies Allergy (Verified 05/24/18 19:36) Medications to take at Discharge Vits96/Iron Fum/Folic [ Tablet] 1 each PO DAILY 05/06/18 Acetaminophen [Tylenol] 500 - 1,000 mg PO Q6H PRN PRN 05/23/18 Calcium Carbonate [Tums] 500 mg PO BIDCM 05/23/18 Primary Care Physician: Shital Cruz MD [Primary Care Provider] - Test Results: Test results from this visit will be discussed in further detail at your follow-up appointment, if applicable.
--- NOTE | 2018-05-27 08:36 | PCM.PN.OB ---
Subjective: No complaints - Physical Exam General: Alert, Oriented x3 Abdomen: Soft, Non Tender, Non-Distended - ff mid & below umb Extremities: No Calf Tenderness Vital Signs Temp Pulse Resp BP Pulse Ox 97.4 F L 89 16 117/57 L 96 05/27/18 01:09 05/27/18 01:09 05/27/18 01:09 05/27/18 01:09 05/27/18 01:09 Oxygen Delivery Method Room Air Weight: 277 lb 3.2 oz Body Mass Index (BMI) 42.1 Intake and Output for Last 24 Hours 05/25/18 05/26/18 05/27/18 23:59 23:59 23:59 Intake Total 4064 / 4064 Output Total 2900 / 2900 Balance 1164 / 1164 Medical Necessity - Tobacco Use Smoking Status: Former smoker Assessment/Plan PPD#2 D/c home
[2018-05-27] MEDS: Acetaminophen 500 MG Tablet 1000 MG PO (11:23)
[2018-05-27 13:50] VITALS: BP 137/97; PULSE 92; RESP 18; TEMP 36.3; O2SAT 97
--- OUTSIDE RECORDS SUMMARY | 2018-08-27 12:24 | XMS RPT_ITS ---
:1985 Author Organization OHIP Support Name Relationship Address Phone BUEMI Unavailable [address] + [place] [address] KHADIJAH, SANDRITA Unavailable [address] + [place] [address] LUDY, NOMI Unavailable [address] [place] [address] BUEMI Unavailable [address] + [place] [address] KHADIJAH, SANDRITA Unavailable [address] + [place] [address] LUDY, NOMI Unavailable [address] [place] [address] BUEMI Unavailable [address] + [place] [address] KHADIJAH, SANDRITA Unavailable [address] + [place] [address] LUDY, NOMI Unavailable [address] [place] [address] BUEMI Unavailable [address] + [place] [address] KHADIJAH, SANDRITA Unavailable [address] + [place] [address] LUDY, ONMI Unavailable [address] [place] [address] BUEMI Unavailable [address] + [place] [address] HKADIJAH, SANDRITA Unavailable [address] + [place] [address] LUDY, NOMI Unavailable [address] + [address] [place] [address] BUEMI Unavailable [address] + [place] [address] KHADIJAH, SANDRITA Unavailable [address] + [place] [address] LUDY, NOMI Unavailable [address] [place] [address] BUEMI Unavailable [address] + [place] [address] KHADIJAH, SANDRITA Unavailable [address] + [place] [address] LUDY, NOMI Unavailable [address] [place] [address] Care Team Providers Name Role Phone NEYHART ALDRIDGE, CARA Referring Unavailable NEYHART ALDRIDGE, CARA Referring Unavailable JUSTIN ALEMAN Attending Unavailable NEYHART ALDRIDGE, CARA Attending Unavailable NEYHART ALDRIDGE, CARA Referring Unavailable BEBE CORDOVA (GATE WATCHMAN) Attending Unavailable JOEL CRUZ Attending Unavailable JUSTIN ALEMAN Referring Unavailable NEYHART ALDRIDGE, CARA Attending Unavailable NEYHART ALDRIDGE, CARA Referring Unavailable TRUMAN ARMAS Attending Unavailable NEYHART ALDRIDGE, CARA Referring Unavailable NEYHART ALDRIDGE, CARA Referring Unavailable NEYHART ALDRIDGE, CARA Attending Unavailable NEYHART ALDRIDGE, CARA Referring Unavailable MEREDITH HARDY (SOLID GLASS ROD DOWEL MACHINE OPERATOR) Attending Unavailable KOFI ROMERO Attending Unavailable NEYHART [...] NEYHART ALDRIDGE, CARA Referring Unavailable GHAZALA ARNOLD (GATE WATCHMAN) Attending Unavailable Neyhart-Aldridge, Cara Attending Unavailable Neyhart-Aldridge, Cara Referring Unavailable Talampas, Joel Primary Care Unavailable Neyhart-Aldridge, Cara Attending Unavailable Talampas, Joel Primary Care Unavailable Neyhart-Aldridge, Cara Referring Unavailable Talampas, Joel Attending Unavailable Talampas, Joel Primary Care Unavailable ABIGAIL HARDY Consulting Unavailable Meredith Hardy TRANSFER MAN-C Consulting Unavailable Neyhart-Aldridge, Cara Admitting Unavailable Neyhart-Aldridge, [...] Repository 03/05/2018 Active Encounter for NA Active [facility] supervision of [facility] other normal Repository , second trimester / Z34.82(ICD-10) 03/05/2018 Active 27 weeks gestation NA Active [facility] of / [facility] Z3A.27(ICD-10) Repository 11/18/2017 Active Encounter for NA Active [facility] screening for Repository nuchal translucency / Z36.82(ICD-10) 10/18/2017 Active Encounter for NA Active [facility] supervision of [facility] other normal Repository , first trimester / Z34.81(ICD-10) 10/18/2017 Active Unknown / [place] Active [facility] UNK(Unknown) ALDRIDGE, [facility] CARA Repository 09/30/2017 Active Hemorrhage in NA Active [facility] early , [facility] unspecified / Repository O20.9(ICD-10) PROCEDURES PROCEDURES No Procedure Records FoundRESULTS RESULTS OPERATIVE REPORT Observed: 06/11/2018 Status: F Source: [place] 12:56 AM [facility] [place] [facility] Medical Records Department [address] [place] [address] Operative Report 05/25/18 1056 MR#: [id number] Acct: [id number] Name: MELVINA LUCIO Rep #: [id number] : 1985 32 From: Cara Aldridge MD PCP: Joel Cruz MD Status: DIS IN Y [facility] ADDENDUM by Cara Wheeler MD on 06/11/18 [...] Signed PROGRESS Observed: 05/29/2018 Status: COMPLETED Source: [place] 10:03 AM [facility] REPOSITORY O ID: [id number] Author: Ghazala (Darrell Arnold Service: (none) Author [...] (MISSED AB 1ST TRIMESTER) - IUD INSERTION (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 DEPT)_*FL 04/11/07 Braulio, removed - PAST SURGICAL [...] children: 1 Occupational History 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 [employer]* Social History Main Topics Smoking status: Former Smoker Packs/day: 0.50 Years: 10.00 Types: Cigarettes Quit date: 09/26/2017 Smokeless tobacco: Never Used Alcohol use: No Drug use: No Sexual activity: Yes Partners with: Male Social History Narrative Merged History Encounter Single, 1 child Weston, age 6 in 2015 Getting 5-15 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, [employer] Current Outpatient Prescriptions: calcium carbonate (TUMS ORAL) [...] given to pt to give to at [facility]. 2. Pedal edema - ICD9: 782.3, ICD10: R60.0 - Reassurance given. Encouraged to increase fluid intake and walk frequently. Follow-up at visit, earlier if needed. Ghazala Arnold APRN.GATE WATCHMAN PROGRESS Observed: 05/28/2018 Status: COMPLETED Source: [place] 3:34 PM [facility] RE[facility]IT[facility] O ID: [id number] Author: Jayden Braxton LPN Service: (none) Author Type: (none) Type: Progress Notes Filed: 05/28/2018 3:38 PM Note Text: Pt delivered via at [facility] on 05/25/[address] Aldridge. See OB Outcome note. Jayden Braxton LPN HOSP Observed: 05/28/2018 Status: COMPLETED Source: [place] 12:00 AM [facility] REPOSITORY Patient Update (WOOB) MELVINA LUCIO ([id number]) 1985 F Date Time Provider Department 05/28/18 CARA FELTON During your visit today, we recorded the following information about you: Jayden Braxton LPN 05/28/2018 3:38 PM Signed Pt delivered via at [facility] on 05/25/[address] Aldridge. [...] DISCHARGE INSTRUCTION Observed: 05/27/2018 Status: F Source: [place] 8:36 AM [facility] [place] [facility] Medical Records Department [address] [place] [address] Instructions for Home/Discharge Instructions 05/27/18 0836 MR#: [id number] Acct: [id number] Name: MELVINA LUCIO Rep #: [id number] : 1985 32 From: Justin Aleman PCP: [...] AND PHYSICAL Observed: 05/24/2018 Status: F Source: [place] EXAM 8:22 PM [facility] [place] [facility] Medical Records Department [address] [place] [address] History and Physical 05/24/18 1847 MR#: [id number] Acct: [id number] Name: MELVINA LUCIO Rep #: [id number] : 1985 32 From: Cara Aldridge MD PCP: Joel Cruz MD Status: ADM IN Location: [id number] History Date of Admission: 05/24/18 Final JASMIN: 05/29/18 Final JASMIN Source: US <20 weeks Gestational age: 39 Weeks and 2 Days History of this : This is a 32 year-old, G 0T5757 @ 39.2 wks with preeclampsia without severe [...] GeLabor LenAnesthesiDelivery Provider FOB Date ght nder [facility] a Location Labs: GBS neg, HEPB neg, HIV neg, Syphilis neg, RUB imm, Expected Infant Delivery Method: Spontaneous Vaginal Review of Systems Eyes: Denies: Blurred vision, Double vision HEENT: Denies: Head Aches Gastrointestinal: Denies: Abdominal Pain Physical Exam General: Alert, Oriented x3 Abdomen: Soft, Non Tender, Gravid Neurological: Cranial nerves II-XII grossly intact 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: Normal external genitalia Estimated gestational size: Appropriate [...] MPV 11.3 Performed By: #### L100.0500 #### [facility] [address] [place], [place], [address] TYPE AND SCREEN Collected: 05/24/2018 Status: F Source: [place] 8:05 PM [facility] [place] Order Comment: Reason for Type AND Screen/Red Cells: ROUTINE TYPE CODE TESTS RESULT OUT OF RANGE REFERENCE UNITS LAB B10.0800 B Normal BLOOD TYPE GEL POSITIVE LAB B100.4000 Normal Antibody NEGATIVE Screen Performed By: #### B101.7450 #### [facility] [address] [place], [place], [address] PROTEIN, URINE 24HR Collected: 05/24/2018 Status: F Source: [place] 12:50 PM [facility] [place] Order Comment: CALL WITH RESULTS [phone] TYPE CODE TESTS RESULT OUT OF RANGE REFERENCE UNITS LAB L501.1850 24.0 HOURS Normal UR COLLECT 24.0 TIME LAB L501.1875 mL Normal UR TOTAL 2950 VOLUME LAB L501.1900 <11.9 mg/dL High URINE PROTEIN 14.2 LAB L501.1925 <150 MG/24HR mg/24HR High 24hr UR 418.9 PROTEIN Performed By: #### L500.9000, L502.000 #### [facility] [address] [place], [address] 24 HR URINE CREATININE Collected: 05/24/2018 Status: F Source: [place] 12:50 PM [facility] [place] Order Comment: CALL WITH RESULTS [phone] TYPE CODE TESTS RESULT OUT OF RANGE REFERENCE UNITS LAB L502.0100 24.0 HOURS Normal UR COLLECT 24.0 TIME LAB L502.0200 L Normal UR TOTAL 3.00 VOLUME LAB L502.0300 NO RANGE EST. mg/dL Normal URINE CREAT 71.30 LAB L502.0400 0.70-1.90 g/24 HR High UR.CREAT/24hr 2.10 Performed By: #### L500.9000, L502.000 #### [facility] [address] [place], [address] PROTEIN+CREATININE Collected: Status: F Source: [place] 05/23/2018 12:50 PM [facility] [place] TYPE CODE TESTS RESULT OUT OF RANGE REFERENCE UNITS LAB L501.1200 NO RANGE EST. mg/dL Normal UR CREAT 41.30 LAB L501.1930 <11.9 mg/dL High 13.5 PROTEIN,UR.R AN. LAB L501.1940 0-200 mg/g CRE High PROT:CRE 327 RATIO Performed By: #### L501.0900 #### [facility] [address] [place], [address] CBC-COMPLETE BLOOD CNT Collected: 05/23/2018 Status: F [...] MPV 11.8 Performed By: #### L100.0500 #### [facility] [address] [place], [place], [address] PROTHROMBIN TIME W/INR Collected: 05/23/2018 Status: F Source: [place] 12:15 PM [facility] [place] TYPE CODE TESTS RESULT OUT OF RANGE REFERENCE UNITS LAB L300.4150 11.7-14.9 SECONDS Normal PROTIME 13.0 LAB L300.4200 Normal INR 1.0 Performed By: #### L300.3900, L300.4310, L501.1105, L501.1400, L501.4100, L501.4405 #### [facility] [address] [place], [place], [address] PARTIAL THROMBOPLAST Collected: 05/23/2018 Status: F Source: [place] TIME 12:15 PM [facility] [place] TYPE CODE TESTS RESULT OUT OF RANGE REFERENCE UNITS LAB L300.4310 24.1-36.2 Seconds Normal PTT 28.6 Performed By: #### L300.3900, L300.4310, L501.1105, L501.1400, L501.4100, L501.4405 #### [facility] [address] [place], [place], [address] SERUM CREATININE AND Collected: 05/23/2018 Status: F Source: [place] GFR 12:15 PM [facility] [...] L300.3900, L300.4310, L501.1105, L501.1400, L501.4100, L501.4405 #### [facility] [address] [place], [address] URIC ACID Collected: 05/23/2018 Status: F Source: [place] 12:15 PM [facility] [place] TYPE CODE TESTS RESULT OUT OF RANGE REFERENCE UNITS LAB L501.1400 2.6-6.0 mg/dL Normal URIC 3.8 Result Comment: The drugs N-Acetylcysteine and Metamizole may falsely depress this assay. Performed By: #### L300.3900, L300.4310, L501.1105, L501.1400, L501.4100, L501.4405 #### [facility] [address] [place], [address] AST(SGOT) Collected: 05/23/2018 Status: F Source: [place] 12:15 PM [facility] [place] TYPE CODE TESTS RESULT OUT OF RANGE REFERENCE UNITS LAB L501.4100 15-37 U/L Normal AST 26 Performed By: #### L300.3900, L300.4310, L501.1105, L501.1400, L501.4100, L501.4405 #### [facility] [address] [place], [address] ALANINE AMINOTRANSFERAS Collected: 05/23/2018 Status: F Source: [place] (SGPT) 12:15 PM [facility] [place] TYPE CODE TESTS RESULT OUT OF RANGE REFERENCE UNITS LAB L501.4405 13-56 U/L Normal ALT 33 Performed By: #### L300.3900, L300.4310, L501.1105, L501.1400, L501.4100, L501.4405 #### [facility] [address] [place], [address] PROGRESS Observed: 05/15/2018 Status: COMPLETED Source: [place] 4:58 PM [facility] REPOSITORY HNO ID: [id number] Author: Kofi Romero Service: (none) Author Type: [...] STREP PCR Collected: 05/07/2018 Status: F Source: [place] 11:41 PM [facility] REPOSITORY TYPE CODE TESTS RESULT OUT OF REFERENCE UNITS RANGE LAB GBPCRT Negative for GROUP Group B B STREP PCR Streptococcus by PCR. Performed By: #### GBPCR #### [facility] [address] [place], [place] [address] CBC-COMPLETE BLOOD CNT Collected: 05/06/2018 Status: F [...] By: #### L100.0500, L300.3900, L300.4310, L300.4700 #### [facility] [address] [place], [place], [address] PROTHROMBIN TIME W/INR Collected: 05/06/2018 Status: F Source: [place] 11:05 AM [facility] [place] TYPE CODE TESTS RESULT OUT OF RANGE REFERENCE UNITS LAB L300.4150 11.7-14.9 SECONDS Normal PROTIME 13.0 LAB L300.4200 Normal INR 1.0 Performed By: #### L100.0500, L300.3900, L300.4310, L300.4700 #### [facility] [address] [place], [place], [address] PARTIAL THROMBOPLAST Collected: 05/06/2018 Status: F Source: [place] TIME 11:05 AM [facility] [place] TYPE CODE TESTS RESULT OUT OF RANGE REFERENCE UNITS LAB L300.4310 24.1-36.2 Seconds Normal PTT 27.1 Performed By: #### L100.0500, L300.3900, L300.4310, L300.4700 #### [facility] [place], [place], [address] FIBRINOGEN Collected: 05/06/2018 Status: F Source: [place] 11:05 AM [facility] [place] TYPE CODE TESTS RESULT OUT OF RANGE REFERENCE UNITS LAB L300.4700 203-444 mg/dl High FIB 663 Performed By: #### L100.0500, L300.3900, L300.4310, L300.4700 #### [facility] [address] [place], [place], [address] EMERGENCY DEPARTMENT Observed: 05/06/2018 Status: F Source: [place] SUMMARY 9:58 AM [facility] [place] [facility] Medical Records Department [address] [place] [address] Emergency Department Summary 11/27/18 0953 MR#: [id number] Acct: [id number] Name: MELVINA LUCIO Rep #: [id number] : 1985 32 From: Mihai Mckeon MD [...] Department Course and Treatment: Examination, consultation with visual display manager, Dr. Aldridge and discharge to L AND D for monitoring Treatment Plan: To L AND D for monitoring Disposition: Discharge to L AND D Impression: Abdominal pain/uterine pain third trimester secondary to trauma This note was generated with Invisible Sentinel dictation software. It may contain incorrect words, [...] problems, contact your Primary Care Provider. Call [facility] ([phone]) or report to the closest Emergency Room. Call 911 if necessary. 05/06/18 0958 <Electronically signed by Mihai Mckeon MD> Date Mihai Mckeon MD Cosigner Signature (If Indicated): Date CC: Joel Cruz MD PROGRESS Observed: 04/16/2018 Status: COMPLETED Source: [place] 1:26 PM [facility] REPOSITORY HNO ID: [id number] Author: Joseline Cassidy Ma Service: (none) Author [...] severely ill: Yes Patient denies history of Guillain-Troy Syndrome (a severe paralytic illness): Yes Tdap Adacel injection was given without incident. See immunizations for details of immunizations administered today. VIS sheet provided: Yes Provider Angelique was present in office at time of injection. Joseline Cassidy Ma PROGRESS Observed: 03/20/2018 Status: COMPLETED Source: [place] 10:14 AM [facility] REPOSITORY HNO ID: [id number] Author: Kofi Romero Service: (none) Author Type: [...] AND DIFFERENTIAL Collected: 03/05/2018 Status: F Source: [place] 3:06 PM [facility] REPOSITORY TYPE CODE TESTS RESULT OUT OF [...] k/uL Abs Lymph 1.39 LAB AMONO % Kimble% 7.0 LAB AAMONO <0.87 k/uL Abs Kimble 0.65 LAB AEOS % Eosin% 1.7 LAB AAEOS <0.46 k/uL Abs Eosin 0.16 LAB ABASO % Baso% 0.2 LAB AABASO <0.11 k/uL Abs Baso <0.03 LAB AUNRBC 0 /100 WBC NRBCs 0.0 LAB ABNRBC <0.01 k/uL Absolute nRBC <0.01 LAB DTYP DTYPE Auto Diff Performed By: #### CBCDIF #### [facility] [address] [place], [place] [address] 50G, 1HR GEST. Collected: 03/05/2018 Status: F [facility] TYPE CODE TESTS RESULT OUT OF REFERENCE UNITS RANGE LAB GLUP 74-134 mg/dL Glucose 117 Screen, Preg Result Comment: [place] Congress of Obstetricians and Gynec[employer] (Yolanda/Adriana) guidelines state a gestational diabetes mellitus positive screen is made, in women not previously diagnosed with overt diabetes, when the 1 hr plasma glucose level is equal to or above 140 mg/dL. The [facility] [employer] Worker and [facility] recommends a 135 mg/dL cutoff. Performed By: #### GLTGST #### [facility] [address] [place], [place] [address] PROGRESS Observed: 03/05/2018 Status: COMPLETED Source: [place] 2:01 PM [facility] REPOSITORY HNO ID: [id number] Author: Joseline Cassidy Ma Service: (none) Author Type: (none) Type: Progress Notes Filed: 03/05/2018 2:50 PM Note Text: 32 year old female here for INACTIVATED INFLUENZA VACCINE. 0736-4090 Season Patient is identified by name and date of : Yes [] CONTRAINDICATIONS color enhanced section Age less than 6 months? No Allergy to eggs, chicken, chicken feathers, or chicken dander? No Allergy to thimerosal (a preservative) or formaldehyde, gelatin? No History of severe reaction to any vaccine component or a previous dose of influenza vaccination? No History of Guillain-Troy Syndrome within 6 weeks after a previous [...] sheet given? Yes See immunization activity in [facility] for details of immunizations adminstered today. Patient age: [age] year old For The 5629-6919 Flu Season 6-35 months old: Fluzone 0.25 [...] time. CNCO Observed: 03/05/2018 Status: COMPLETED Source: [place] 12:00 AM [facility] REPOSITORY Letter Text [facility] [address] [place] [phone] 03/05/2018 To Whom It May Concern: This is to confirm that Melvinarip Lucio had an appointment and was seen at the [facility] in the Department of TUNNEL ELASTIC OPERATOR LOCKSTITCH by Cara Aldridge MD on 03/05/2018 and was accompanied by Sandrita Lucio. Sincerely, Cara Aldridge MD PROGRESS Observed: 01/13/2018 Status: COMPLETED Source: [place] 9:37 AM [facility] REPOSITORY HNO ID: [id number] Author: Kofi Romero Service: (none) Author Type: [...] indicated PROGRESS Observed: 12/30/2017 Status: COMPLETED Source: [place] 10:03 AM [facility] REPOSITORY [facility] ID: [id number] Author: Meredith Hardy (Cns) Service: (none) Author [...] . She had sleep study completed at [facility] on December 19, 2017, report per Dr. [...] (MISSED AB 1ST TRIMESTER) - IUD INSERTION (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 DEPT)_*FL 04/11/07 Braluio, marybeth - PAST SURGICAL HISTORY OF IANDD [...] the need for systemic opioids methotrexate suppressed SOLID GLASS ROD DOWEL MACHINE OPERATOR and respiratory function should be used.-(Up to [...] and agreed with the plan. Meredith Hardy APRN.SOLID GLASS ROD DOWEL MACHINE OPERATOR CNOV Observed: 12/30/2017 Status: COMPLETED Source: [place] 9:40 AM [facility] REPOSITORY Office Visit (INTMWS) MELVINA LUCIO ([id number]) 1985 F Date Time Provider Department 12/30/17 [...] . She had sleep study completed at [facility] on December 19, 2017, report per Dr. [...] (MISSED AB 1ST TRIMESTER) - IUD INSERTION (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 DEPT)_*FL 04/11/07 marybeth Ramsey - PAST SURGICAL [...] setting of 14 cm H2O using a [employer]su[employer] FFMof medium size, EPR of 3, heated [...] the need for systemic opioids methotrexate suppressed SOLID GLASS ROD DOWEL MACHINE OPERATOR and respiratory function should be used.-(Up to [...] and agreed with the plan. Meredith Hardy APRN.SOLID GLASS ROD DOWEL MACHINE OPERATOR Referring Provider: SELF [200] Allergies As of Date: 12/30/2017 (No Known Allergies) Date Reviewed: 12/30/2017 Reviewed by: Cecily Mcnair LPN - Fully Assessed Reason for Visit: Results - Sleep Study [3564] Primary Visit Diagnosis:ABHINAV (obstructive sleep apnea) [G47.33] Other Visit Diagnosis:16 weeks gestation of [Z3A.16] Order(s):CONSULT TO SLEEP MEDICINE - ADULT [6933380] Order #: [id number]: 1 Prescriptions as of 12/30/2017 Sig: PROMETHAZINE 12.5 MG TABLET Take 1 tablet by mouth every * ORAL Take by mouth. Problem List As Of Date 12/30/2017 Noted Resolved SUPERVIS NORMAL 1ST PREG [Z34.00] [facility] [O09.899] INVALID [...] Dn Snyd LAB SE2STS SE2 Scr Rsk 1:39618 Trsmy 13 LAB SE2STR SE2 Scr Rsk <1:13480 Trsmy18 LAB SE2SON SE2 Scr Rsk 1:7600 ONTD LAB SE2RS View Seq Scrn results in Second Trim Scanned Documents link when available. LAB SEQLRV SEQ Staff Reviewed by Review Phong Cutler MD, PhD ([id number]) Performed By: #### SEQL2 #### [facility] [employer] [address] [place], [place] [address] SEQUENT SCRN FIRST Collected: 11/18/2017 Status: F Source: [place] [facility] PATIENTS ONLY 10:19 AM [facility] REPOSITORY TYPE CODE TESTS RESULT OUT OF REFERENCE UNITS RANGE LAB SE1PAP MoM 0.56 SE1 IVY A LAB SE1HCG MoM 1.26 SE1 hCG LAB SE1INT Final result pending second Final trimester SE1 result pending sample Interp second trimester sample LAB SE1SDN SE1 Scrn 1:1100 Rsk Dn Synd LAB SE1ADN 1:310 SE1 Age Rsk Dn Synd LAB SE1STR SE1 Scr <1:47458 Rsk Trsmy18 LAB SE1ATR SE1 Age 1:1400 Rsk Trsmy18 LAB SE1RS View Seq Scrn results in First Trim Scanned Documents link when available. LAB SEQLRV SEQ Staff Reviewed by Review Phong Cutler MD, PhD ([id number]) Performed By: #### SEQL1 #### [facility] [employer] [address] [place], [place] [address] PROGRESS Observed: 11/18/2017 Status: COMPLETED Source: [place] 9:49 AM [facility] REPOSITORY HNO ID: [id number] Author: Truman Armas Service: (none) Author Type: Physician Type: Progress Notes Filed: 11/18/2017 9:51 AM Note Text: Please see ultrasound report for details of this visit. Truman Armas M.D. PROGRESS Observed: 11/01/2017 Status: COMPLETED Source: [place] 1:01 PM [facility] REPOSITORY HNO ID: [id number] Author: Joel Cruz Service: (none) Author Type: [...] (MISSED AB 1ST TRIMESTER) - IUD INSERTION (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 DEPT)_*FL 04/11/07 Mirena, removed - PAST SURGICAL [...] children: 1 Occupational History 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 [employer]* Social History Main Topics Smoking status: Former Smoker Packs/day: 0.50 Years: 10.00 Types: Cigarettes Quit date: 09/26/2017 Smokeless tobacco: Never Used Alcohol use: No Drug use: No Sexual activity: Yes Partners with: Male Social History Narrative Merged History Encounter Single, 1 child Weston, age 6 in 2015 Getting 5-15 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 32 year old lady here [...] counseling and/or coordinating care for the patient. Cvvc-pb-zryu time was 30 minutes. Joel Cruz MD CNOV Observed: 11/01/2017 Status: COMPLETED Source: [place] 11:40 AM [facility] REPOSITORY Office Visit (INTMWS) MELVINA LUCIO ([id number]) 1985 F Date Time Provider Department 11/01/17 [...] (MISSED AB 1ST TRIMESTER) - IUD INSERTION (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 DEPT)_*FL 04/11/07 Mirena, removed - PAST SURGICAL [...] children: 1 Occupational History 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 [employer]* Social History Main Topics Smoking status: Former Smoker Packs/day: 0.50 Years: 10.00 Types: Cigarettes Quit date: 09/26/2017 Smokeless tobacco: Never Used Alcohol use: No Drug use: No Sexual activity: Yes Partners with: Male Social History Narrative Merged History Encounter Single, 1 child Weston, age 6 in 2015 Getting 5-15 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 32 year old lady here [...] counseling and/or coordinating care for the patient. Qmfy-tl-garp time was 30 minutes. Joel Cruz MD Referring Provider: JUSTIN ALEMAN [[id number]] Allergies As of Date: 11/01/2017 (No Known [...] 11/12/17 PROGRESS Observed: 10/30/2017 Status: COMPLETED Source: [place] 4:09 PM [facility] REPOSITORY HNO ID: [id number] Author: Bebe Cuevas) Tasha Service: (none) Author Type: Nurse Practitioner Type: Progress Notes Filed: 10/30/2017 4:36 PM Note Text: Project Consultant offered: Patient declines. 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 DEPT)_*FL 04/11/07 Mirena, removed - PAST SURGICAL [...] children: 1 Occupational History 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 [employer]* Social History Main Topics Smoking status: Former Smoker Packs/day: 0.50 Years: 10.00 Types: Cigarettes Quit date: 09/26/2017 Smokeless tobacco: Never Used Alcohol use: No Drug use: No Sexual activity: Yes Partners with: Male Social History Narrative Merged History Encounter Single, 1 child Weston, age 6 in 2014 Getting 5-15 Works at [employer] on [employer], [facility] Current Outpatient Prescriptions: promethazine (PHENERGAN) 12.5 [...] external genitalia normal, normal Bartholin's glands, urethra, Picayune's glands, no cervical lesions, good vaginal support, [...] APRN.CNP CNOV Observed: 10/30/2017 Status: COMPLETED Source: [place] 4:00 PM [facility] REPOSIT[facility] Office Visit (WOOB) MELVINA LUCIO ([id number]) 1985 F Date Time Provider Department 10/30/17 4:00 PM BEBE CORDOVA (CARMENCITA) WOOB During your visit today, we recorded the following information about you: Blood pressure Weight 100/68 104.3 kg Bebe Cordova APRN.CNP 10/30/2017 4:36 PM Signed Project Consultant offered: Patient declines. 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 DEPT)_*FL 04/11/07 Braulio, removed - PAST SURGICAL [...] children: 1 Occupational History 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 [employer]* Social History Main Topics Smoking status: Former Smoker Packs/day: 0.50 Years: 10.00 Types: Cigarettes Quit date: 09/26/2017 Smokeless tobacco: Never Used Alcohol use: No Drug use: No Sexual activity: Yes Partners with: Male Social History Narrative Merged History Encounter Single, 1 child Weston, age 6 in 2014 Getting 5-15 Works at [employer] on [address] Current Outpatient Prescriptions: promethazine (PHENERGAN) 12.5 mg [...] external genitalia normal, normal Bartholin's glands, urethra, Picayune's glands, no cervical lesions, good vaginal support, [...] 1,2/VZV AMP MOLECULAR DETECT [SQHSVVZV] Order #: [id number] Prescriptions as of 10/30/2017 Sig: PROMETHAZINE 12.5 MG TABLET Take 1 tablet by mouth every * ORAL Take by mouth. Problem List As Of Date 10/30/2017 Noted Resolved SUPERVIS NORMAL 1ST PREG [Z34.00] INVALID [facility] [O09.899] INVALID [...] HSV1,2/VZV AMPLIF Collected: 10/30/2017 Status: F Source: [place] 4:17 AM [facility] REPOSIT[facility] TYPE CODE TESTS RESULT OUT OF [...] Molecular Detection. Performed By: #### HSVVZV #### [facility] [address] [address] TOXICOLOGY SCREEN,UR Collected: 10/18/2017 Status: F Source: [place] 2:45 PM [facility] [place] REPOSITORY TYPE CODE TESTS RESULT OUT OF [...] the same speci men through Client Services ([phone]) if contacted within 48 hours of initial testing. [1]Substance Abuse and Mental Health Services Administration (2012). Clinical Drug Testing in Primary Care Technical Assistance Publication Series 32. Department of Health and Human Services, [place], p.10. These tests were developed and their performance characteristics determined by [facility]'s [facility] [place] ([facility]). They have not been cleared or a pproved by the FDA. [facility] is regulated under CLIA as qualified to perform high complexity testing. These tests are used for clinical purposes. They should not be regarded as investigational or for research. Performed By: #### UTOX2 #### [address] [place] [address] Observed: 10/18/2017 Status: F Source: [place] URINE CULTURE 2:45 PM [facility] REPOSITORY Sp. Request/Comment: - Specimen received in preservative Culture Result - <10,000 CFU/ml Normal urogenital dewey Performed By: #### URCUL #### [address] [address] CBC Collected: 10/18/2017 Status: F Source: [place] 11:25 AM [facility] REPOSITORY TYPE CODE TESTS RESULT OUT OF [...] #### CBC, RUBIGG, SYPHGX, HBSAG, HIV12C #### [address] [place], [place] [address] RUBELLA IGG ANTIBODY Collected: 10/18/2017 Status: F Source: [place] 11:25 AM [facility] [place] REPOSITORY TYPE CODE TESTS RESULT OUT OF [...] #### CBC, RUBIGG, SYPHGX, HBSAG, HIV12C #### [address] [address] SYPHILIS IGG WITH Collected: 10/18/2017 Status: F Source: [facility] 11:25 AM [facility] [place] REPOSITORY TYPE CODE TESTS RESULT OUT OF [...] #### CBC, RUBIGG, SYPHGX, HBSAG, HIV12C #### [address] [place] [address] HEPATITIS B SURF. AG Collected: 10/18/2017 Status: F Source: [place] 11:25 AM [facility] [place] REPOSITORY TYPE CODE TESTS RESULT OUT OF REFERENCE UNITS RANGE LAB HBSAG Negative Hepatitis B Negative Surf. Ag Performed By: #### CBC, RUBIGG, SYPHGX, HBSAG, HIV12C #### [address] [address] HIV 12 COMBO (AG/AB) Collected: 10/18/2017 Status: F Source: [place] 11:25 AM [facility] REPOSITORY TYPE CODE TESTS RESULT OUT OF REFERENCE UNITS RANGE LAB HVAGAB Non Reactive HIV Non Reactive 12 Ag/Ab Result Comment: (NOTE) HIV Information: [place] Rev. Code 3701.243(E): This information has been [...] #### CBC, RUBIGG, SYPHGX, HBSAG, HIV12C #### [facility] [employer] [address] [address] 50G, 1HR GEST. Collected: 10/18/2017 Status: F Source: [place] GSCRN 11:25 AM [facility] [place] REPOSITORY TYPE CODE TESTS RESULT OUT OF REFERENCE UNITS RANGE LAB GLUP 74-134 mg/dL Low Glucose 73 Screen, Preg Result Comment: [place] Congress of Obstetricians and Gynecologists (Guerrero/Coustan) guidelines state a gestational diabetes mellitus positive screen is made, in women not previously diagnosed with overt diabetes, when the 1 hr plasma glucose level is equal to or above 140 mg/dL. The [facility] [employer] Work[facility] [place] recommends a 135 mg/dL cutoff. Performed By: #### GLTGST #### [address] [address] TYPE AND SCR,PRENATL Collected: 10/18/2017 Status: F Source: [place] 11:25 AM [facility] REPOSITORY TYPE CODE TESTS RESULT OUT OF REFERENCE UNITS RANGE LAB %ABR B ABO/RH(D) POSITIVE LAB % Antibody NEG Screen Performed By: #### TSPN #### [address] [address] HGB EVAL CASCADE Collected: 10/18/2017 Status: F Source: [place] 11:25 AM [facility] REPOSITORY TYPE CODE TESTS RESULT OUT OF [...] Staff Review Reviewed by Suzanne Francisco MD ([id number]) LAB RBC 3.90-5. m/uL 20 RBC 4.25 LAB HGB 11.5-15 g/dL .5 Hemoglobin 13.7 LAB HCT 36.0-46 % .0 Hematocrit 39.9 LAB MCV 80.0-10 fL 0.0 MCV 93.9 LAB MCH 26.0-34 pG .0 MCH 32.2 LAB MCHC 30.5-36 g/dL .0 MCHC 34.3 LAB RDWCV 11.5-15 % .0 RDW-CV 11.9 Performed By: #### HBEVAL #### [address] [address] GC/CHLAMYDIA AMPLIF Collected: 10/18/2017 Status: F Source: [place] 10:30 AM [facility] REPOSITORY TYPE CODE TESTS RESULT OUT OF REFERENCE UNITS RANGE LAB GCCTSR GC/Chlam Amp [facility] Source LAB GCAMPL GC Negative Amplification for Neisseria gonorrhoeae by amplification. LAB CLAMPL Chlamydia Negative Amplif for Chlamydia trachomatis by amplification. Performed By: #### GCCT #### [address] [id number] PROGRESS Observed: 10/18/2017 Status: COMPLETED Source: [place] 10:09 AM [facility] REPOSIT[facility] HNO ID: [id number] Author: Cara Felton Service: (none) Author Type: [...] No Multivitamin with Folic acid: Yes Occupation: [employer] Judaism or heritage: No Would refuse blood transfusion if medically necessary: No No weight on file for this encounter. Patient BMI over 30? 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 DEPT)_*FL 04/11/07 Mirena, removed - PAST SURGICAL [...] MD PROGRESS Observed: 10/03/2017 Status: COMPLETED Source: [place] 4:45 PM [facility] REPOSIT[facility] HNO ID: [id number] Author: Dayan Schilling RN Service: (none) Author [...] None CNNURSE Observed: 10/03/2017 Status: COMPLETED Source: [place] 3:00 PM [facility] RE[facility] Nurse Visit (WOOB) MELVINA LUCIO ([id number]) 1985 F Date Time Provider Department 10/03/17 3:00 PM NURSE BEBETO [facility] GILDA SON During your visit today, we recorded the following information about you: Last Period 08/22/17 Dayan Schilling RN 10/03/2017 3:32 PM Signed SEQUENTIAL SCREENINGS The [facility] offers sequential screenings for women [...] It will require an appointment with our gate technician. This is not an ultrasound performed [...] the above symptoms, contact our office at [phone] and ask to speak with a nurse. After hours, you can call doctors registry at [phone] OR call [facility] at [phone] and ask to have the doctor abalone sheller paged. If you consider this an emergency, [...] treatment is particularly effective in young patients-the [facility] Cord Blood Bank reports a 70 percent [...] issues. What do the experts say? The [place] [employer] encourages philanthropic blood banking [...] baby needs at the moment. The nurse, pre school manager, or physician will then label the [...] AHEAD OF TIME! Public cord-blood lucia--DONATION: [employer] [phone] [facility]'s Placental Blood Program, [facility] Umbilical Cord Blood Bank, Private cord-blood lucia--SAVING FOR YOUR OWN USE: Cry[employer]Cell Constant Contact, (I think this is the least expensive) [employer] [phone] [employer], [phone]) [employer] [place] Cord Blood Bank, [phone] Cells, [phone] [place] Cryobank, Cord Blood Registry, ([phone]) CORDBLDecatur Morgan Hospital-Park[facility] Campusrd, An Internet search may provide you with [...] requested diagnostic testing [Z01.89] Order(s):DOUG PT ED TUNNEL ELASTIC OPERATOR LOCKSTITCH [[id number]] Order #: [id number]: 1 FUTURE DOUG PT ED TUNNEL ELASTIC OPERATOR LOCKSTITCH [[id number]] Order #: [id number]. #:[id number]: 1 Prescriptions as of 10/03/2017 Sig: ORAL [...] instructions from your clinician: SEQUENTIAL SCREENINGS The [facility] offers sequential screenings for women [...] It will require an appointment with our gate technician. This is not an ultrasound performed [...] the above symptoms, contact our office at [phone] and ask to speak with a nurse. After hours, you can call doctors [facility] at [phone] OR call [facility] at [phone] and ask to have the doctor abalone sheller paged. If you consider this an emergency, [...] is particularly effective in young patients- the [facility] Cord Blood Bank reports a 70 percent [...] issues. What do the experts say? The [place] [employer] Pediatric[employer] encourages philanthropic blood banking [...] baby needs at the moment. The nurse, pre school manager, or physician will then label the [...] AHEAD OF TIME! Public cord-blood lucia--DONATION: [employer] [phone] [facility] Placental Blood Program, [facility] Umbilical Cord Blood Bank, Private cord-blood lucia--SAVING FOR YOUR OWN USE: [employer]Cell Constant Contact, (I think this is the least expensive) [employer] [phone] [employer], ([phone]) [employer] [place] Cord Blood Bank, [phone] Cells, [phone] [place] Cryobank, Cord Blood Registry, [phone]) CORDBLOOD [facility], An Internet search may provide you with additional listings. Disposition: Return in about 2 weeks (around 10/18/2017) for New OB with Dr Aldridge. 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)_*FL 04/11/07 Mirena, removed - PAST SURGICAL [...] children: 1 Occupational History 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* Social History Main Topics Smoking status: Current Every Day Smoker Packs/day: 0.50 Years: 10.00 Types: Cigarettes Smokeless status: Never Used Alcohol use: No Drug use: No Sexual activity: Yes Partners with: Male Social History Narrative Merged History Encounter Single, 1 child Weston, age 6 in 2014 Getting 5-15 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, 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 [...] 10/03/17 PROGRESS Observed: 10/03/2017 Status: COMPLETED Source: [place] 8:50 AM [facility] REPOSITORY HNO ID: [id number] Author: Justin Aleman Service: (none) Author Type: [...] HISTORY Procedure Laterality Date - IUD INSERTION (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 DEPT)_*FL 04/11/07 Mirena, removed - PAST SURGICAL [...] 1 Occupational History 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 [employer]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* Social History Main Topics Smoking status: Current Every Day Smoker Packs/day: 0.50 Years: 10.00 Types: Cigarettes Smokeless status: Never Used Alcohol use: No Drug use: No Sexual activity: Yes Partners with: Male Social History Narrative Merged History Encounter Single, 1 child Weston, age 6 in 2014 Getting 5-15 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, 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 [...] QUANTITATIVE BL Collected: 10/02/2017 Status: F Source: [place] 4:46 PM [facility] REPOSITORY TYPE CODE TESTS RESULT OUT OF REFERENCE UNITS RANGE LAB HCGQT <5.0 mU/mL HCG, [place] [address].0 Result Comment: QUANTITATIVE HCG NORMAL RANGES Weeks of Gestation (Weeks Since LMP) 3 Weeks (5.8-71.2 mIU/mL) 4 Weeks (9.5-750 mIU/mL) 5 Weeks (217-7138 mIU/mL) 6 Weeks (158-96305 mIU/mL) 7 Weeks (3697-397664 mIU/mL) 8 Weeks (02468-062029 mIU/mL) 9 Weeks (17111-444950 mIU/mL) 10 Weeks (39285-500370 mIU/mL) 12 Weeks (10186-170560 mIU/mL) Referenced to 4th IS of [facility] Performed By: #### HCGQT #### [facility] [address] [place], [place] [address] HCG, QUANTITATIVE BL Collected: 09/30/2017 Status: F Source: [place] 4:46 PM [facility] REPOSITORY TYPE CODE TESTS RESULT OUT OF REFERENCE UNITS RANGE LAB HCGQT <5.0 mU/mL HCG, [place] 99394.0 Result Comment: QUANTITATIVE HCG NORMAL RANGES Weeks of Gestation (Weeks Since LMP) 3 Weeks (5.8-71.2 mIU/mL) 4 Weeks (9.5-750 mIU/mL) 5 Weeks (217-7138 mIU/mL) 6 Weeks (158-09605 mIU/mL) 7 Weeks (3697-960509 mIU/mL) 8 Weeks (43668-404151 mIU/mL) 9 Weeks (10491-352814 mIU/mL) 10 Weeks (46824-477568 mIU/mL) 12 Weeks (98961-056119 mIU/mL) Referenced to 4th IS of NIBS Performed By: #### HCGQT #### [facility] [address] [address] ALLERGIES ALLERGIES DATE TYPE / CODE NAME / CODE REACTION SEVERITY SOURCE 05/24/2018 Drug No Known Unknown [facility] Allergy/416 Allergies/H65286 Hospital 911958(SNOM 0388(RXNORM) Repository ED CT) Drug NO KNOWN [facility] Class/75885 ALLERGIES [address] [place] [address](SNOMED Repository CT) ENCOUNTERS ENCOUNTERS ADMIT/DISCHARGE ACCOUNT ADMITTING ENCOUNTER LOCATION SOURCE NUMBER CLASS 06/11/2018/06/11/19 [id number] Ambulatory [place] ing:WPOUTRoom Repository : WPOLRM 05/29/2018/05/29/20 [id number] Ambulatory [address] ing:WPOUTRoom Repository : WPOL 05/29/2018/06/05/20 [id number] Ambulatory [address] Repository 05/24/2018/05/27/20 [id number] [facility] Inpatient [place] [address], [facility] ing:WPRoom: Repository OA013Hcs: 1 05/24/2018 [id number] [facility] ing:LABSPEC Repository 05/23/2018/05/23/20 [id number] Ambulatory [address] ing:WPOUTRoom Repository : WP014 05/23/2018/05/27/20 [id number] Ambulatory [address] Repository 05/19/2018/05/20/20 [id number] Ambulatory [address] Repository 05/15/2018/05/16/20 [id number] Ambulatory [address] Repository 05/12/2018/05/13/20 [id number] Ambulatory [address] Repository 05/07/2018/05/09/20 [id number] Ambulatory [address] Repository 05/06/2018/05/06/20 [id number] Ambulatory [place] ing:WPOUTRoom Repository : WP011 04/29/2018/04/30/20 [id number] Ambulatory [place] [facility] [address] [place] Repository 04/16/2018/04/18/20 [id number] Ambulatory [place] [facility] [address] [place] Repository 04/02/2018/04/03/20 [id number] Ambulatory [place] [facility] [address] [place] Repository 03/19/2018/03/20/20 [id number] Ambulatory [place] [facility] [address] [place] Repository 03/19/2018/03/21/20 [id number] Ambulatory [place] [facility] [address] [place] Repository 03/05/2018/03/05/20 [id number] Ambulatory [place] [facility] [address] [place] Repository 03/05/2018/03/06/20 [id number] Ambulatory [place] [facility] [address] [place] Repository 02/12/2018/02/15/20 [id number] Ambulatory [place] [facility] [address] [place] Repository 01/13/2018/01/15/20 [id number] Ambulatory [place] [facility] [address] [place] Repository 01/13/2018/01/15/20 [id number] Ambulatory [place] [facility] [address] [place] Repository 12/30/2017/01/01/20 [id number] Ambulatory [place] [facility] [address] [place] Repository 12/19/2017 [id number] Ambulatory [facility] ing:SL Repository 12/17/2017/12/18/19 [id number] Ambulatory [place] [facility] [address] [place] Repository 12/17/2017/12/19/19 [id number] Ambulatory [place] [facility] [address] [place] Repository 11/18/2017 [id number] [facility] [place] Repository 11/18/2017/11/21/19 [id number] Ambulatory [place] [address] [place] Repository 11/18/2017/11/21/19 [id number] Ambulatory [place] [facility] [address] [place] Repository 11/01/2017/11/13/19 [id number] Ambulatory [place] [address] [place] Repository 10/30/2017/11/02/19 [id number] Ambulatory [place] [facility] [address] [place] Repository 10/18/2017/10/19/19 [id number] Ambulatory [place] [facility] [address] [place] Repository 10/18/2017/10/23/19 [id number] Ambulatory [place] [facility] [address] [place] Repository 10/03/2017/10/08/19 [id number] Ambulatory [address] Repository 10/03/2017/10/08/19 [id number] Ambulatory [address] Repository 10/02/2017 [id number] Ambulatory [facility] Repository 09/30/2017 [id number] [facility] Repository PAYERS PAYERS ENCOUNTER GUARANTOR PAYER SUBSCRIBER SOURCE 06/11/2018 MELVINA A [id number] Primary MELVINA A [place] [address] Insurance:MEDICAL REEDD[place] [facility] [id number] [address]Vuv: (330) Number: Repository [phone] () [id number] Date:[id number] [address]RA: 06/11/2018 Secondary NOT GIVENUNK [place] Insurance:SELF PAY [facility] Number: Effective Repository Date:2018-06-11 05/29/2018 MELVINA A [id number] Primary MELVINA A [place] [address] Insurance:MEDICAL REEDDOB: [facility] [id number] [address]Kap: (330) Number: Repository [phone] () [id number] Date:[id number] [address]NV: 05/29/2018 Secondary NOT GIVENUNK [place] Insurance:SELF PAY [facility] Number: Effective Repository Date:2018-05-29 05/24/2018 MELVINA A [id number] Primary MELVINA A [place] [address] [place] Insurance:MEDICAL REEDDOB: [facility] [id number] Hospital [address]Esy: (330) Number: Repository [phone] () [id number] Date:[id number] [address]: 05/24/2018 Secondary NOT GIVENUNK [place] Insurance:SELF PAY [facility] Number: Effective Repository Date:2018-05-24 05/24/2018 MELVINA A [id number] Primary MELVINA A [place] [address] [place] Insurance:MEDICAL REEDDOB: [facility] [id number] [facility] [address]Yyu: 330) Number: Repository [phone] () [id number] Date:3348-10-02ZM [address] [address]MG: 05/24/2018 Secondary NOT GIVENUNK [place] Insurance:SELF PAY [facility] Number: Effective Repository Date:2018-05-24 05/23/2018 MELVINA A [id number] Primary MELVINA A [place] [address] [place] Insurance:MEDICAL REEDDOB: [facility] [id number] Hospital [address]Xep: (330) Number: Repository [phone] () [id number] Date:[id number] [address]FC: 05/23/2018 Secondary NOT GIVENUNK [place] Insurance:SELF PAY [facility] Number: Effective Repository Date:2018-05-23 05/06/2018 MELVINA A [id number] Primary Insurance:[facility] MELVINA A [place] [address] [place] [facility] REEDDOB: [facility] Number: [id number] Hospital [address]Mho: [phone]) [id number] Repository [phone] () Date:6580-12-22SOKUFJ [address], [place] [address]NR: 05/06/2018 Secondary MELVINA A Sherin Insurance:MEDICAL REEDDOB: [facility] [id number] Hospital Number: Repository [id number] Date:2947-59-[address] [id number]: 05/06/2018 Tertiary NOT GIVENUNK [place] Insurance:SELF PAY [facility] Number: Effective Repository Date:2018-05-06 12/19/2017 MELVINA A [id number] Primary MELVINA A [place] [address] Insurance:MEDICAL REEDDOB: [facility] [id number] Hospital [address]Ygi: (330) Number: Repository [phone] ) [id number] Date:9066-08-86[address] [address]GH: 12/19/2017 Secondary NOT GIVENUNK Sherin Insurance:SELF PAY [facility] Number: Effective Repository Date:2017-11-21
== END 2018-05-27 15:35 | disposition home or self-care (01) | DRG 806 ==
PROVIDERS: Admitting Provider Obstetrics & Gynecology; Family Provider Internal Medicine; PCP Internal Medicine; Visit Provider Obstetrics & Gynecology
DX: O14.94 Unspecified pre-eclampsia, complicating childbirth (principal); O15.1 Eclampsia complicating labor; O70.1 Second degree perineal laceration during delivery; O69.1XX0 Labor and delivery complicated by cord around neck, with compression, not applicable or unspecified; G47.33 Obstructive sleep apnea (adult) (pediatric); O99.214 Obesity complicating childbirth; Z68.41 Body mass index [BMI] 40.0-44.9, adult; E66.01 Morbid (severe) obesity due to excess calories; Z87.891 Personal history of nicotine dependence; Z3A.39 39 weeks gestation of pregnancy; Z37.0 Single live birth
CPT/HCPCS: 59025; 59050; 85027; 86850; 86900; 99218; J7120; G0378; J2405

== ENCOUNTER 2018-05-29 11:23 | Outpatient (CLI) | payer OTHER, SELFPAY | END 2018-05-29 13:00 | disposition home or self-care (01) | LOC: WPOUT 11:23 → WP 11:24 | PROVIDERS: Family Provider Internal Medicine; PCP Internal Medicine; Referring Provider Obstetrics & Gynecology; Visit Provider Obstetrics & Gynecology | DX: O92.79 Other disorders of lactation (principal) | CPT/HCPCS: 96152 ==

== ENCOUNTER 2018-06-11 15:00 | Outpatient (CLI) | payer OTHER, SELFPAY | END 2018-06-11 16:00 | disposition home or self-care (01) | LOC: WPOUT 15:01 → WP 15:02 | PROVIDERS: Family Provider Internal Medicine; PCP Internal Medicine; Referring Provider Obstetrics & Gynecology; Visit Provider Obstetrics & Gynecology | DX: O92.13 Cracked nipple associated with lactation (principal) | CPT/HCPCS: 96152 ==

== ENCOUNTER 2018-08-14 09:49 | Day surgery (SDC) | payer OTHER, SELFPAY ==
[2018-08-14] VITALS (7 sets, daily range): BP systolic 107–136; BP diastolic 65–92; PULSE 49–73; RESP 16–24; TEMP 35.5–36.3; O2SAT 94–100; BMI 38.0
--- NOTE | 2018-08-14 10:17 | EKG12_ITS ---
Test Reason : PRE OP Blood Pressure : / mmHG Vent. Rate : 053 BPM Atrial Rate : 053 BPM P-R Int : 150 ms QRS Dur : 094 ms QT Int : 438 ms P-R-T Axes : 068 000 048 degrees QTc Int : 410 ms Sinus bradycardia with sinus arrhythmia Otherwise normal ECG No previous ECGs available Confirmed by JANEY VIERA, ELPIDIO ([id number]), news copy editor CLAUDIA KAHN ([id number]) on 08/15/2018 1:57:59 PM Referred By: Luz Wheeler Confirmed By:ELPIDIO TOTH MD
[2018-08-14 10:30] LABS: Hematocrit 42.5 % (37-47); Mean Corp Hgb Conc 32.9 g/gl (32-36); Mean Platelet Vol. 10.8 fl (6.2-12.0); Platelet Count 307 K/mm3 (150-450); RBC Distribution Width CV 12.5 % (11.6-14.6); RBC Distribution Width SD 42.3 fl (35.1-43.9); Red Blood Count 4.52 M/mm3 (4.2-5.4); White Blood Count 6.5 K/mm3 (4.4-11.0)
[2018-08-14 10:35] LABS: Scan Indicated on CBC? Y/N NO
[2018-08-14 10:37] LABS: Internal QC Validated? YES +Cl - CLEAR BKGD; Pregnancy, Urine Negative Negative
[2018-08-14 10:51] LABS: AST(SGOT) 20 U/L (15-37); Alanine Aminotransfer ALT/SGPT 25 U/L (13-56); Albumin, Serum 3.7 g/dL (3.2-5.0); Alkaline Phosphatase 61 U/L (45-117); Bilirubin, Direct 0.07 mg/dL (0.00-0.30); Globulin 3.9 g/dL (2.2-4.2); Partial Thromboplast Time 29.9 Seconds (24.1-36.2); Protein, Total 7.6 g/dL (6.4-8.2)
--- NOTE | 2018-08-14 11:30 | FALS_PTH ---
PATIENT: CEL[place]UCIO [place] [facility] [id number] AGE/SX: 32/F ROOM: RE08/14/[address]: Dr. Luz Wheeler, MDDOB: 1985 BED: DIS: 08/14/2018 SPEC #: [id number] RECD: 08/14/18 14:10 STATUS: JEWEL REShoshana #: [id number] BIJU: 08/14/18 11:[address]: Luz Wheeler DEPT: SURGICAL PATHOLOGY RECD BY: Estiven Yarbrough ENTERED: 08/14/18 14:37 SP TYPE: FALL TUBES OTHR DR: Dr. Shital Cruz MD Tissues: Fallopian tube Procedures: Surgery Specimen Level II HEADER OPERATION: Laparoscopic salpingectomy PRE-OP DIAGNOSIS: Request for sterilization TISSUE SUBMITTED: Bilateral fallopian tubes MICROSCOPIC DIAGNOSIS Bilateral fallopian tubes, salpingectomy: Two complete segments of fallopian tubes with no pathologic change. AM:terry 08/15/18 MICROSCOPIC DESCRIPTION Slides are reviewed. GROSS DESCRIPTION Received is one container labeled with the patient's name and designated bilateral fallopian tubes. The specimen consists of two fallopian tubes with an average length of 6.5 cm and has a maximal diameter of 0.6 cm. One fallopian tube is inked in black ink. Both fallopian tubes have normal fimbriated ends. No mass lesions are identified. Fruit Harvest Machine Operator sections from both fallopian tubes are submitted in one cassette. / AM:terry 08/14/18 TC:4 CPT: 94781 x2
[2018-08-14 11:32] LABS: PTHIN 31.4 pg/mL (18.4-80.1)
[2018-08-14] MEDS: Bupivacaine Mpf 0.5% 30 ML VIAL (11:40)
--- NOTE | 2018-08-14 12:58 | PCM.OPRPT ---
Report of Operation Date of Procedure: 08/14/18 Pre-Operative Diagnosis: desires sterilization Post-Operative Diagnosis: same Surgery/Procedure Performed:: laparoscopic bilateral salpingectomy Description of Surgical Findings:: normal tubes and ovaries bilaterally continuous pickling line pickler: KIM Mcpherson Type of Anesthesia:: General Special Medications: marcaine Specimen's removed: bilateral fallopian tubes Drains: none Estimated Blood Loss (mL): 5 Fluids Replaced: 1100cc Description of Procedure: Operative note: After informed consent was obtained patient was taken to the operating room she was placed in supine position she was given anesthesia. She was then placed in the [facility] stirrups and she was prepped and draped in normal sterile fashion. Bladder was drained prior to the start of procedure approximately 50cc of clear yellow urine was expelled. At this time attention was turned to the vaginal portion where weighted speculum placed at posterior fornix vagina single-tooth tenaculum was used to gently grasp the internal the cervix. uterus was gently sounded to approximately 8cm. Uterine manipulator was placed without difficulty. Legs then placed in parallel with the abdomen the tenaculum and the weighted speculum were removed. 2 towel clamps were placed superior to umbilicus. After[Marcaine was injected at umbilicus a small incision was made and a 5 mm trocar was placed under direct visualization. CO2 gas was used to insufflate the intra-abdominal cavity. Upon inspection no gross abnormalities uterus tubes and ovaries appeared to be normal. At this time then the RLQ and LLQ ports were placed again Marcaine was injected small incision was made a knife and the 5 mm trocar was placed. At this time then tubes were traced back to the fimbriated ends. Ligasure was used to coagulate and ligate along mesosalpynx bilaterally until tubes removed completely. Good hemostasis was appreciated. At this time procedure was deemed complete successful. The gas was desufflated on from the intra-abdominal cavity. The trochars were removed. Skin was closed using 4-0 Monocryl in a subcutaneous fashion. Dermabond glue was placed. Instrument lap and needle counts were correct ?2. The uterine manipulator was removed. Vaginal sweep was performed it was negative. There were no complications anticipated normal postoperative course for this patient. Grafts/Implants Used: none - Complications none - Admit VTE Documentation VTE Present on Admission: Yes VTE Mechan Device Prophylaxis: SCD's VTE Pharm Prophylaxis ordered?: No
--- NOTE | 2018-08-14 13:02 | OP.PCM_ITS ---
Report of Operation Date of Procedure: 08/14/18 Pre-Operative Diagnosis: desires sterilization Post-Operative Diagnosis: same Surgery/Procedure Performed:: laparoscopic bilateral salpingectomy Description of Surgical Findings:: normal tubes and ovaries bilaterally lithographic printing machinist: KIM Mcpherson Type of Anesthesia:: General Special Medications: marcaine Specimen's removed: bilateral fallopian tubes Drains: none Estimated Blood Loss (mL): 5 Fluids Replaced: 1100cc Description of Procedure: Operative note: After informed consent was obtained patient was taken to the operating room she was placed in supine position she was given anesthesia. She was then placed in the [facility] stirrups and she was prepped and draped in normal sterile fashion. Bladder was drained prior to the start of procedure approximately 50cc of clear yellow urine was expelled. At this time attention was turned to the vaginal portion where weighted speculum placed at posterior fornix vagina single-tooth tenaculum was used to gently grasp the internal the cervix. uterus was gently sounded to approximately 8cm. Uterine manipulator was placed without difficulty. Legs then placed in parallel with the abdomen the tenaculum and the weighted speculum were removed. 2 towel clamps were placed superior to umbilicus. After[Marcaine was injected at umbilicus a small incision was made and a 5 mm trocar was placed under direct visualization. CO2 gas was used to insufflate the intra-abdominal cavity. Upon inspection no gross abnormalities uterus tubes and ovaries appeared to be normal. At this time then the RLQ and LLQ ports were placed again Marcaine was injected small incision was made a knife and the 5 mm trocar was placed. At this time then tubes were traced back to the fimbriated ends. Ligasure was used to coagulate and ligate along mesos alpynx bilaterally until tubes removed completely. Good hemostasis was appreciated. At this time procedure was deemed complete successful. The gas was desufflated on from the intra-abdominal cavity. The trochars were removed. Skin was closed using 4-0 Monocryl in a subcutaneous fashion. Dermabond glue was placed. Instrument lap and needle counts were correct ?2. The uterine manipulator was removed. Vaginal sweep was performed it was negative. There were no complications anticipated normal postoperative course for this patient. Grafts/Implants Used: none - Complications none - Admit VTE Documentation VTE Present on Admission: Yes VTE Mechan Device Prophylaxis: SCD's VTE Pharm Prophylaxis ordered?: No
--- NOTE | 2018-08-14 13:04 | DCINST_ITS ---
Discharge Diet: No Restrictions, - - Increase fluid intake for 48 hours. Discharge Activity: Return to Normal Activity, May Drive - when you are no longer taking narcotic pain medications., May Shower, May Take a Tub Bath - in 7 days., - - Ambulate often the next week after surgery. Additional Activity Instructions:: Nothing in the vagina for the next 5 days. Call your doctor if your incision/area has: Continuous Slow Oozing, Sudden Increased Bleeding, Increased Pain/ Swelling, Increased Redness, Foul Smelling Discharge, Swelling at the incision site Call your doctor if you observe: Fever of 101 or Higher Allergies/Adverse Reactions: Allergies No Known Allergies Allergy (Verified 08/14/18 10:27) Medications to take at Discharge Vits96/Iron Fum/Folic [ Tablet] 1 each PO DAILY 05/06/18 Primary Care Physician: Shital Cruz MD [Primary Care Provider] - Test Results: Test results from this visit will be discussed in further detail at your follow- up appointment, if applicable.
== END 2018-08-14 15:59 | disposition home or self-care (01) ==
LOC: SDC 09:50 → AC 09:52
PROVIDERS: Anesthesiology; Family Provider Internal Medicine; PCP Internal Medicine; Referring Provider Obstetrics & Gynecology; Visit Provider Obstetrics & Gynecology
PROC: (CPT 58661; principal; 2018-08-14 11:15)
DX: Z30.2 Encounter for sterilization (principal); I10 Essential (primary) hypertension; G47.30 Sleep apnea, unspecified; F17.210 Nicotine dependence, cigarettes, uncomplicated
CPT/HCPCS: 58661; 36415; 80076; 81025; 83970; 85027; 85730; 88302; 93005; J7120; J2405

== ENCOUNTER → 2019-03-26 12:36 | Outpatient (CLI) | payer OTHER, SELFPAY ==
[2018-08-14 10:26] VITALS: BMI 38.0
--- NOTE | 2019-03-26 | FLU_PTH ---
PATIENT: CELSO LUCIO LOC: [facility] U#:[id number] AGE/SX: 39/F ROOM: RE03/26/[address]: Dr. Naomi Carroll MD : 1985 BED: DIS: SPEC #: [id number] RECD: 03/26/19 13:29 STATUS: JEWLE JENNIFER #: [id number] BIJU: 03/26/19 00:[address]: Naomi Carroll DEPT: CYTOLOGY RECD BY: Alexander Sherman ENTERED: 03/26/19 13:29 SP TYPE: Fluid OTHR DR: Dr. Shital Cruz MD Tissues: A - Thyroid gland, NOS B - Thyroid gland, NOS Procedures: Special Stain Group II Surgery Specimen Level IV Cytospin Fluid HEADER OPERATION: Left thyroid FNA PRE-OP DIAGNOSIS: Left thyroid nodule TISSUE SUBMITTED: A - Left thyroid FNA, B - Left thyroid aspirate DIAGNOSIS CYTOLOGY A. Fine needle aspiration, left thyroid nodule (cytospin and cell block): Adequate for evaluation. Negative, consistent with benign cystic lesion. B. Fine needle aspiration, left thyroid nodule (smears): Adequate for evaluation. Negative, consistent with cystic colloid nodule. AM:terry 03/27/19 CYTOLOGY STUDY Slides are reviewed. CYTOLOGY GROSS A - Received is 20 ml of red, cloudy fluid labeled with the patient's name and and designated per the requisition as left thyroid. Submitted for cytology preparation including cell block. B - Received are four smears labeled with the patient's name and designated per the requisition as left thyroid. Submitted for staining. / etrry 03/26/19 TC:5 CPT: 81550, 26716, 59356
== END ==
PROVIDERS: Family Provider Internal Medicine; PCP Internal Medicine; Referring Provider Surgery; Visit Provider Surgery
DX: E04.1 Nontoxic single thyroid nodule (principal)
CPT/HCPCS: 88108; 88305; 88313

== ENCOUNTER → 2019-11-24 17:30 | Outpatient (CLI) | payer OTHER, SELFPAY ==
[2018-08-14 10:26] VITALS: BMI 38.0
== END ==
PROVIDERS: PCP Internal Medicine; Referring Provider Surgery; Visit Provider Surgery
DX: E04.1 Nontoxic single thyroid nodule (principal)

== ENCOUNTER → 2019-11-25 | Outpatient (CLI) | payer OTHER, SELFPAY ==
[2018-08-14 10:26] VITALS: BMI 38.0
--- NOTE | 2019-11-24 | FLU_PTH ---
PATIENT: CELSO LUCIO LOC: [facility] U#:[id number] AGE/SX: 34/F ROOM: RE11/25/[address]: Dr. Naomi Carroll MD : 1985 BED: DIS: 11/25/2019 SPEC #: [id number] RECD: 11/24/19 16:52 STATUS: JEWEL RE #: [id number] BIJU: 11/24/19 00:[address]: Naomi Carroll DEPT: CYTOLOGY RECD BY: Alexander Sherman ENTERED: 11/25/19 12:11 SP TYPE: Fluid OTHR DR: Dr. Shital Cruz MD Tissues: A - Thyroid gland, NOS B - Thyroid gland, NOS Procedures: Special Stain Group II Surgery Specimen Level IV Cytospin Fluid HEADER OPERATION: Left thyroid FNA PRE-OP DIAGNOSIS: Left thyroid nodule TISSUE SUBMITTED: A - Left thyroid fluid for cytology, B - Left thyroid 8 slides DIAGNOSIS CYTOLOGY A. Fine needle aspiration, left thyroid nodule (cytospin and cell block): Adequate for evaluation. Negative, consistent with benign cystic follicular nodule. B. Fine needle aspiration, left thyroid nodule (smears): Adequate for evaluation. Negative, consistent with benign follicular/colloid nodule with cystic change. AM:terry 11/26/19 CYTOLOGY STUDY Slides are reviewed. CYTOLOGY GROSS A - Received is 30 ml of red cloudy fluid labeled with the patient's name and and designated per the requisition as left thyroid. Submitted for cytology preparation including cell block. B - Received are eight smears labeled with the patient's name and designated per the requisition as left thyroid. Submitted for staining. / terry 11/25/19 TC:5 CPT: 04002, 55502, 74816 ADDENDUM ADDENDUM ADDENDUM ADDENDUM ADDENDUM ADDENDUM ADDENDUM ADDENDUM ADDENDUM ADDENDUM ADDENDUM ADDENDUM ADDENDUM 09/07/2022 10:37 ADDENDUM 09/07/2022 10:37 ADDENDUM 09/07/2022 10:37 ADDENDUM 09/07/2022 10:37 ADDENDUM 09/07/2022 10:37 This addendum is added to incorporate an outside pathology consultation report. The case was examined at [facility] (#[id number]) and the following diagnosis was rendered. A. Left thyroid nodule, fine needle aspiration: Benign. B. Left thyroid nodule, fine needle aspiration: Benign. Consistent with colloid nodule. Please see complete above mentioned consultation report in EMR
== END | disposition home or self-care (01) ==
LOC: LABSPEC 12:02
PROVIDERS: PCP Internal Medicine; Visit Provider Surgery
DX: E04.1 Nontoxic single thyroid nodule (principal)
CPT/HCPCS: 88108; 88305; 88313